=== PATIENT | female | born 1950 | race Caucasian/White ===

== ENCOUNTER → 2016-08-23 | Outpatient (CLI) | payer MEDICARE, BC ==
--- NOTE | 2016-08-23 09:48 | USB ---
Reason for exam: clinical finding. History: Patient is postmenopausal. Family history of breast cancer in 2 sisters and breast cancer in grandmother at age 65. US discontinued breast bx RT of the right breast, October 06, 2015. Taking estrogen for 5 years 9 months beginning at age 51. Physical Findings: Nurse did not find any significant physical abnormalities on exam. US Breast RT Right breast ultrasound includes all four quadrants, the retroareolar region and axilla. Finding demonstrates a 0.5 x 0.5 x 0.4cm oval, cystic lesion at 10 o' clock versus 4 x 6 x 4mm, benign, and a 0.3 x 0.2 x 0.2cm lesion too small to characterize at 10 o'clock versus 2 x 2 x 2mm previously. Stability suggests a benign etiology. The shadowing area at 11 o'clock is unchanged from 09/27/15. This can be reassessed by ultrasound again in 1 year. We note patient is due for annual exam in 1 months. These results were verbally communicated with the patient and result sheet given to the patient on 08/23/16. ASSESSMENT: Probably benign, BI-RAD 3 RECOMMENDATION: 1. Follow-up diagnostic mammogram of both breasts in 1 month for annual exam. 2. Follow up right ultrasound in 1 year for 11 o'clock, suspected dense breast tissue. [facility]
== END | disposition home or self-care (01) ==
LOC: RADUSWWP 08:35
PROVIDERS: ATTEND Internal Medicine
DX: R92.8 Other abnormal and inconclusive findings on diagnostic imaging of breast (principal)

== ENCOUNTER → 2016-09-23 | Outpatient (CLI) | payer MEDICARE, BC ==
--- NOTE | 2016-09-24 07:36 | MM ---
Reason for exam: additional evaluation requested from prior study. Last mammogram was performed 1 year ago. History: Patient is postmenopausal. Family history of breast cancer in 2 sisters and breast cancer in grandmother at age 65. US discontinued breast bx RT of the right breast, October 06, 2015. Taking estrogen for 5 years 9 months beginning at age 51. Physical Findings: Nurse did not find any significant physical abnormalities on exam. MG 3D Diag Mammo W/Cad HOMERO Bilateral CC and MLO view(s) were taken. Prior study comparison: September 22, 2015, bilateral MG 3d screening mammo w/cad. September 16, 2014, bilateral MG screening mammo w CAD. There is chronic nodularity in the right breast. No significant new findings when compared with previous films. These results were verbally communicated with the patient and result sheet given to the patient on 09/23/16. ASSESSMENT: Benign, BI-RAD 2 RECOMMENDATION: Routine screening mammogram of both breasts in 1 year.
== END ==
LOC: RADMAMWWP 13:44
PROVIDERS: ATTEND Internal Medicine
DX: R92.8 Other abnormal and inconclusive findings on diagnostic imaging of breast (principal)
CPT/HCPCS: G0204; G0279

== ENCOUNTER → 2017-01-09 | Outpatient (CLI) | payer MEDICARE, BC ==
[2017-01-09 14:29] LABS: Appearance,Urine Clear (Clear); Bacteria,Urine Few /hpf; Bilirubin,Urine Negative (Negative); Glucose,Urine (UA) Negative (Negative); Ketones,Urine Negative (Negative); Leukocyte Esterase,Urine Negative (Negative); Nitrite,Urine Negative (Negative); Particle Count 1455; Protein,Urine Negative (Negative); RBC,Urine <1 /hpf (0-5); Specific Gravity,Urine 1.006 (1.001-1.035); Squamous Epithelial Cell,Urine 1 /hpf (0-4); UA Billing (MACRO vs. MICRO) MICRO; Urobilinogen,Urine <2.0 mg/dL (<2.0); WBC,Urine 1 /hpf (0-5)
== END | disposition home or self-care (01) ==
LOC: LABWHC1 13:25
PROVIDERS: ATTEND Internal Medicine
DX: N39.0 Urinary tract infection, site not specified (principal)
CPT/HCPCS: 81001; 87086

== ENCOUNTER → 2017-02-19 | Outpatient (CLI) | payer MEDICARE, BC ==
--- NOTE | 2017-02-19 14:19 | EST ---
EXERCISE STRESS DATE OF SERVICE: 02/19/2017 AGE: 66 SEX: F HT: 5'6" WT: 125 STAGE: 3 DURATION OF EXERCISE: 7:27 HEART RATE REST: 55 BLOOD PRESSURE REST: 106/79 MAXIMUM HEART RATE ACHIEVED: 134 MAXIMUM BLOOD PRESSURE: 147/68 85% MPHR: 130 100% MPHR: 153 METS: 8.9 INDICATIONS: Chest pain. CLINICAL INFORMATION: STRESS DATA: Pretesting physical examination showed a heart rate of 55. Pressure is 106/79 mmHg. Baseline EKG showed sinus mechanism. The patient exercised on the treadmill according to Franky protocol for a total of 7 minutes 27 seconds and achieved 8.9 METS. Max heart rate was 134, which is about 88% of maximum predicted heart rate. Maximum blood pressure was 147/68 mmHg. Clinically, the patient did not have any symptoms of chest pain or discomfort and the EKG did not any significant ST or T-wave abnormalities consistent with ischemia. CONCLUSION: 1. Good exercise capacity. 2. Normal EKG response to exercise. 3. Essentially normal exercise treadmill stress test for this patient. MMODL / IJN: [id number] /
== END ==
LOC: RADNMMAIN 11:09
PROVIDERS: ATTEND Internal Medicine
DX: R07.9 Chest pain, unspecified (principal)
CPT/HCPCS: 93017

== ENCOUNTER → 2017-11-20 | Outpatient (CLI) | payer MEDICARE, BC ==
--- NOTE | 2017-11-21 11:15 | MM ---
Reason for exam: screening (asymptomatic). Last mammogram was performed 1 year and 2 months ago. History: Patient is postmenopausal. Family history of breast cancer in 2 sisters and breast cancer in grandmother at age 65. US discontinued breast bx RT of the right breast, October 06, 2015. Taking estrogen for 5 years 9 months beginning at age 51. Physical Findings: A clinical breast exam by your physician is recommended on an annual basis and results should be correlated with mammographic findings. MG 3D Screening Mammo W/Cad Bilateral CC and MLO view(s) were taken. Prior study comparison: September 23, 2016, bilateral MG 3d diag mammo w/cad HOMERO. September 22, 2015, bilateral MG 3d screening mammo w/cad. The breast tissue is heterogeneously dense. This may lower the sensitivity of mammography. Benign appearing round bilateral calcifications. There is no discrete abnormality. ASSESSMENT: Benign, BI-RAD 2 RECOMMENDATION: Routine screening mammogram of both breasts in 1 year.
== END | disposition home or self-care (01) ==
LOC: RADMAMWWP 11:08
PROVIDERS: ATTEND Internal Medicine
DX: Z12.31 Encounter for screening mammogram for malignant neoplasm of breast (principal)
CPT/HCPCS: 77063; 77067

== ENCOUNTER → 2018-08-19 | Outpatient (CLI) | payer MEDICARE, BC ==
[~2018-08-19] MED LIST: ACETAMINOPHEN TAB 325 MG TAB PO ONE; INFLIXIMAB-DYYB 300 MG in SODIUM CHLORIDE 0.9% 250 ML IV NR; SODIUM CHLORIDE 0.9% 500 ML 500 ML in EMPTY BAG 1 BAG IV PRN; diphenhydrAMINE 50 MG/ML 1 ML VIAL IVP ONE
[2018-08-19 08:50] VITALS: RESP 16; TEMP 97.8
[2018-08-19 10:52] VITALS: BP 102/69; PULSE 64
== END ==
LOC: PROCWHC3 08:28
PROVIDERS: ATTEND Internal Medicine Rheumatology
DX: M06.9 Rheumatoid arthritis, unspecified (principal); M05.49 Rheumatoid myopathy with rheumatoid arthritis of multiple sites
CPT/HCPCS: 96375; 96413; 96415; J1200; Q5103

== ENCOUNTER → 2018-08-24 | Outpatient (CLI) | payer MEDICARE, BC ==
--- NOTE | 2018-08-24 11:20 | FL ---
EXAMINATION TYPE: FL UGI air w esophagus DATE OF EXAM: 08/24/2018 CLINICAL HISTORY: Chest pain and burning midsternal chest TECHNIQUE: A double air contrast UGI study is performed. COMPARISON: None FINDINGS: Fluoroscopy time: 2 minutes 4 seconds. Images: 60. The upper gastrointestinal tract is evaluated utilizing double air contrast technique. The esophagus dilates to normal caliber has normal contour to the distal esophagus. The distal esophagus has modera te to marked hesitancy passing through the gastroesophageal junction. There appears to be some persis tent narrowing of the distal esophagus. Multiple tertiary contractions were evident during the exam. However, there is complete stripping of the esophageal bolus in the horizontal drinking position. A s mall amount of reflux was evident during the examination in the distal third of the esophagus Fundus body and antrum of the stomach appear unremarkable without intraluminal or extramural defects. Barium readily empties into the normally positioned duodenal cap and sweep. Duodenal folds are yumi l. Proximal jejunum is unremarkable. IMPRESSION: 1. Mild gastroesophageal reflux in the distal esophagus. 2. Appears to be spasm at the gastroesophageal junction which had moderate to marked hesitancy of con trast passing through. However, some images appear to demonstrate a normal caliber. Consider EGD for additional evaluation. 3. Presbyesophagus. 4. Normal stomach and duodenum.
== END | disposition home or self-care (01) ==
LOC: RADFLWHC 10:02
PROVIDERS: ATTEND Internal Medicine
DX: K21.9 Gastro-esophageal reflux disease without esophagitis (principal); K22.8 Other specified diseases of esophagus
CPT/HCPCS: 74246

== ENCOUNTER → 2018-09-23 | Outpatient (CLI) | payer MEDICARE, BC ==
[~2018-09-23] MED LIST changes: +diphenhydrAMINE 25 MG CAP PO ONE; -diphenhydrAMINE 50 MG/ML 1 ML VIAL IVP ONE
[2018-09-23 08:44] VITALS: RESP 16
[2018-09-23 08:47] VITALS: TEMP 97.5
[2018-09-23 11:37] VITALS: BP 113/56; PULSE 53
== END | disposition home or self-care (01) ==
LOC: PROCWHC3 08:22
PROVIDERS: ATTEND Internal Medicine Rheumatology
DX: M05.49 Rheumatoid myopathy with rheumatoid arthritis of multiple sites (principal)
CPT/HCPCS: 96413; 96415; Q5103

== ENCOUNTER → 2018-12-01 | Outpatient (CLI) | payer MEDICARE, BC ==
--- NOTE | 2018-12-03 11:58 | MM ---
Reason for exam: screening (asymptomatic). Last mammogram was performed 1 year ago. History: Patient is postmenopausal. Family history of breast cancer in 2 sisters and breast cancer in grandmother at age 65. US discontinued breast bx RT of the right breast, October 06, 2015. Taking estrogen for 5 years 9 months beginning at age 51. Physical Findings: A clinical breast exam by your physician is recommended on an annual basis and results should be correlated with mammographic findings. MG 3D Screening Mammo W/Cad Bilateral CC and MLO view(s) were taken. Prior study comparison: November 20, 2017, bilateral MG 3d screening mammo w/cad. September 23, 2016, bilateral MG 3d diag mammo w/cad HOMERO. The breast tissue is heterogeneously dense. This may lower the sensitivity of mammography. There is chronic nodularity in the right breast. No significant changes when compared with prior studies. ASSESSMENT: Benign, BI-RAD 2 RECOMMENDATION: Routine screening mammogram of both breasts in 1 year.
== END | disposition home or self-care (01) ==
LOC: RADMAMWWP 09:54
PROVIDERS: ATTEND Internal Medicine
DX: Z12.31 Encounter for screening mammogram for malignant neoplasm of breast (principal)
CPT/HCPCS: 77063; 77067

== ENCOUNTER → 2018-12-16 | Outpatient (CLI) | payer MEDICARE, BC ==
[2018-12-16 12:34] LABS: Albumin 4.3 g/dL (3.5-5.0); Calcium 9.7 mg/dL (8.4-10.2); Total Bilirubin 0.3 mg/dL (0.2-1.3); Total Protein 7.6 g/dL (6.3-8.2)
[2018-12-16 12:44] LABS: Appearance,Urine Clear (Clear); Bilirubin,Urine Negative (Negative); Blood,Urine Negative (Negative); Color,Urine Yellow; Glucose,Urine (UA) Negative (Negative); Ketones,Urine Negative (Negative); Leukocyte Esterase,Urine Negative (Negative); Nitrite,Urine Negative (Negative); PH, Urine 5.5 (5.0-8.0); Protein,Urine Trace (Negative); Specific Gravity,Urine 1.019 (1.001-1.035); Urobilinogen,Urine <2.0 mg/dL (<2.0)
--- NOTE | 2018-12-16 14:35 | CT ---
EXAMINATION TYPE: CT abdomen pelvis wo/w con DATE OF EXAM: 12/16/2018 COMPARISON: None HISTORY: Abdominal pain CT DLP: 713.20 mGycm Automated exposure control for dose reduction was used. TECHNIQUE: Helical acquisition of images was performed from the lung bases through the pelvis. CONTRAST: Performed with Oral Contrast and without and with IV Contrast, patient injected with 100 ml mL of Iso sneha 300. FINDINGS: LUNG BASES: Pleural thickening and linear scarring is seen along the posterior and lateral right lowe r lobe with additional areas of scarring seen in the medial right middle lobe and lingula. LIVER/GB: No significant abnormality is appreciated. PANCREAS: No significant abnormality is seen. SPLEEN: No significant abnormality is seen. ADRENALS: No significant abnormality is seen. KIDNEYS: No significant abnormality is seen. FREE AIR: No free air is visualized. RETROPERITONEAL ADENOPATHY: None visualized REPRODUCTIVE ORGANS: No significant abnormality is seen URINARY BLADDER: No significant abnormality is seen. PELVIC ADENOPATHY: None visualized. OSSEOUS STRUCTURES: No significant abnormality is seen. BOWEL: No significant abnormality is seen. OTHER: Radiopaque surgical clips seen in the right lower quadrant of the abdomen likely related to ap pendectomy. IMPRESSION: NO ACUTE PROCESS WITHIN THE ABDOMEN OR PELVIS. NONSPECIFIC PLEURAL THICKENING AND SCARRING IN THE RIGHT LOWER LOBE OF UNCERTAIN ETIOLOGY. CORRELATIO N WITH TWO-VIEW CHEST X-RAY IS RECOMMENDED.
== END | disposition home or self-care (01) ==
LOC: RADCTMAIN 11:16
PROVIDERS: ATTEND Internal Medicine Rheumatology
DX: R10.9 Unspecified abdominal pain (principal); R53.83 Other fatigue
CPT/HCPCS: 80053; 84436; 84443; 81003; 74178; 36415; Q9967

== ENCOUNTER 2019-03-27 12:14 | Emergency (ER) | payer MEDICARE, BC ==
[2019-03-27 12:18] VITALS: TEMP 98
[2019-03-27] MEDS ORDERED: LIDOCAINE/EPINEPHR/TETRACAINE 5 ML BOTTLE TOPICAL ONE (13:07)
--- NOTE | 2019-03-27 13:08 | CT ---
EXAMINATION TYPE: CT brain anselmo armendariz DATE OF EXAM: 03/27/2019 COMPARISON: None HISTORY: Fall TECHNIQUE: 1. Axial CT images of the head without contrast. Bone windows and sagittal and coronal reformats were reviewed. 2. Axial CT images of the cervical spine without contrast. Bone windows and sagittal and coronal refo rmats were reviewed. 3. CT DLP: 1245 mGycm Automated exposure control for dose reduction was used. FINDINGS: CT Head: No acute intracranial hemorrhage. Cordero-white differentiation is preserved. The ventricular system is normal in size and morphology. No abnormal extra-axial fluid collections or midline shift of structures. Patent basal cisterns. No depressed or displaced calvarial fracture. Left frontotemporal scalp laceration. Visualized parana karolina sinuses and temporal bone structures are well aerated. The orbits and skull base are unremarkable . CT Cervical Spine: The cervical spine is imaged through T3. Reversal of the usual cervical lordosis. Vertebral bodies an d facet joints are anatomically aligned. No fracture. Vertebral body heights are maintained. Mild-moderate degenerative changes throughout the cervical spine, greatest degree at C5-toothpicks ch aracterized by vertebral body osteophyte formation, disc height loss, and facet and uncovertebral spu rring. No prevertebral edema or soft tissue abnormality. 4 mm right apical nodule. IMPRESSION: 1. No acute intracranial abnormality.. Left frontotemporal scalp laceration. 2. No acute traumatic injury of the cervical spine. 3. Right upper lobe lung nodule measuring 4 mm, dedicated chest CT is recommended on a nonemergent sis.
[2019-03-27] MEDS ORDERED: DIPH,PERTUS(ACELL)TETVAC-LF 0.5 ML VIAL IM ONE (14:00)
--- NOTE | 2019-03-27 14:00 | ED ---
Head Injury HPI - General Chief complaint: Head Injury Stated complaint: Fall-Head Injury Source: patient Mode of arrival: ambulatory Limitations: no limitations - History of Present Illness Initial comments: 68-year-old female presenting for left-sided head laceration. Patient states that she was intoxicated yesterday after going to the ball with her . She states she came into the home attempt to use restroom she states she has not rub or following the witnessed her lose her balance and fall between the bathtub and the toilet he states she did not lose consciousness. They controlled the bleeding and went to bed. In the morning they had the laceration evaluated by a family friend who is a nurse who recommended suture repair she denies any headache dizziness nausea vomiting neck pain. She states she does not recall much of the night before secondary to drinking. Patient denies noting any chest pain short of breath like swelling or any abnormal signs or symptoms prior to the beginning of the evening. Patient denies any other complaints she states she only came for the repair of this laceration. Tetanus is not up-to-date. Remaining review of systems negative patient denies any areas of pain or injury - Related Data Home Medications Medication Instructions Recorded Confirmed ALPRAZolam [Xanax] 0.25 mg PO DAILY PRN 09/14/13 01/11/19 Zolpidem [Ambien] 10 mg PO DAILY PRN 09/14/13 01/11/19 Ibuprofen [Advil] 200 mg PO Q6HR PRN 01/09/16 01/11/19 HYDROcodone/APAP 10-325MG [[place] 1 tab PO Q4HR PRN 11/16/18 01/11/19 10-325] Previous Rx's Medication Instructions Recorded Cephalexin [Keflex] 500 mg PO Q8HR 5 Days #15 cap 03/27/19 Allergies/Adverse reactions: Allergies Allergy/AdvReac Type Severity Reaction Status Date / Time codeine Allergy Unknown Verified 03/27/19 12:17 propoxyphene napsylate Allergy Unknown Verified 03/27/19 12:17 [From Myriam-N 100] Review of Systems ROS Statement: Those systems with pertinent positive or pertinent negative responses have been documented in the HPI. ROS Other: All systems not noted in ROS Statement are negative. Past Medical History Past Medical History: Rheumatoid Arthritis (RA), Skin Disorder Additional Past Medical History / Comment(s): ARTHRITIC LUNG RT SIDE. History of Any Multi-Drug Resistant Organisms: None Reported Past Surgical History: Appendectomy, Heart Catheterization, Hernia Repair, Hysterectomy, Tonsillectomy Additional Past Surgical History / Comment(s): RT HAND JOINT REPLACED/THORACENTESIS 2008/RT FOOT SURG/BUNIONECTOMY Past Anesthesia/Blood Transfusion Reactions: No Reported Reaction Past Psychological History: Anxiety Smoking Status: Former smoker Past Alcohol Use History: Occasional Past Drug Use History: None Reported General Exam - General Exam Comments Initial Comments: General: The patient is awake and alert, in no distress, and does not appear acutely ill. Eye: +3 mm pupils are equal, round and reactive to light, extra-ocular movements are intact. No nystagmus. There is normal conjunctiva bilaterally. No signs of icterus. Ears, nose, mouth and throat: There are moist mucous membranes and no oral lesions. No raccoon or Tripp sign. Small hematoma over the left temporal region with a 3 cm laceration. No exposure of osseous structures. No evidence of foreign body. Wound edges appear vitalized Neck: The neck is supple, there is no tenderness or JVD. No midline tenderness to palpation of the cervical spine with full range of motion. Cardiovascular: There is a regular rate and rhythm. No murmur, rub or gallop is appreciated. Respiratory: Lungs are clear to auscultation, respirations are non-labored, breath sounds are equal. No wheezes, stridor, rales, or rhonchi. Gastrointestinal: Soft, non-distended, non-tender abdomen without masses or organomegaly noted. There is no rebound or guarding present. Musculoskeletal: Normal ROM, no tenderness. Strength 5/5. Sensation intact. Pulses equal bilaterally 2+. Neurological: A&O x 3. CN II-XII intact, There are no obvious motor or sensory deficits. Coordination appears grossly intact. Speech is normal. Skin: Skin is warm and dry and no rashes or lesions are noted. Psychiatric: Cooperative, appropriate mood & affect, normal judgment. Limitations: no limitations Course Vital Signs 03/27/19 03/27/19 03/27/19 12:15 12:47 14:01 Temperature 98.0 F Pulse Rate 70 62 67 Respiratory 18 18 16 Rate Blood Pressure 118/74 111/71 113/65 O2 Sat by Pulse 98 98 96 Oximetry 03/27/19 14:13 Temperature 98.0 F Pulse Rate 67 Respiratory 16 Rate Blood Pressure 113/65 O2 Sat by Pulse 96 Oximetry Medical Decision Making - Medical Decision Making 68-year-old female presented for laceration repair. Left temporal laceration with small, trauma. Wound edges appear vitalized. Wound was incurred at 10 PM the night prior less than 24 hours. After irrigation wound edges approximated well. CT of the brain C-spine negative for acute process. Patient fall which was witnessed was said to be mechanical. Secondary to intoxication. Patient states she is ready for discharge tetanus updated discussed case attending provider Dr. Vargas is agreeable care plan discharge at this time. Return parameters and suture care discussed patient verbalized understanding Disposition Clinical Impression: Laceration of head, Fall, Head injury Disposition: HOME SELF-CARE Condition: Good Instructions (If sedation given, give patient instructions): Care For Your Stitches (ED), Laceration (ED), Head Injury (ED) Additional Instructions: Please use medication as discussed. Please follow-up with family doctor in the next week and back here in the emergency department for suture removal in 5 days.. Please return to emergency room if the symptoms increase or worsen or for any other concerns. Prescriptions: Cephalexin [Keflex] 500 mg PO Q8HR 5 Days #15 cap Is patient prescribed a controlled substance at d/c from ED?: No Referrals: Vicente Chua MD [Primary Care Provider] - 1-2 days Time of Disposition: 14:00
[2019-03-27 14:02] VITALS: BP 113/65; PULSE 67; RESP 16
== END 2019-03-27 14:13 | disposition home or self-care (01) ==
LOC: EC 12:14
DX: S01.81XA Laceration without foreign body of other part of head, initial encounter (principal); M06.9 Rheumatoid arthritis, unspecified; Z87.891 Personal history of nicotine dependence; Z88.5 Allergy status to narcotic agent; Z79.1 Long term (current) use of non-steroidal anti-inflammatories (NSAID); Z96.691 Finger-joint replacement of right hand; Z23 Encounter for immunization; W01.0XXA Fall on same level from slipping, tripping and stumbling without subsequent striking against object, initial encounter; Y93.89 Activity, other specified; Y92.002 Bathroom of unspecified non-institutional (private) residence as the place of occurrence of the external cause
CPT/HCPCS: 12013; 70450; 72125; 90471; 90715; 99283

== ENCOUNTER → 2019-09-28 | Outpatient (CLI) | payer MEDICARE, BC ==
--- NOTE | 2019-09-28 14:30 | NM ---
EXAMINATION TYPE: NM bone scan whole body DATE OF EXAM: 09/28/2019 COMPARISON: CT 03/27/2019 HISTORY: Joint pain, abnormal brain scan Delayed whole-body scanning was performed following the injection of 20.5 mCi Tc 99m MDP. Images acq uired 3.5 hours post injection. FINDINGS: There is uptake within the metatarsophalangeal joint of the right first digit, mild uptake on the lef t at the same level. Uptake within the hands, wrists, elbows and shoulders, right sternoclavicular soo int likely due to underlying arthropathy. Soft tissue uptake is within normal limits. Mild uptake abo ut the knees, there may be is postop change. Mild asymmetric uptake along the anterior left third fou rth ribs may be due to rotation, correlate for history of trauma. IMPRESSION: Correlate for underlying arthropathy. Additional findings above.
== END | disposition home or self-care (01) ==
LOC: RADNMMAIN 09:36
PROVIDERS: ATTEND Internal Medicine
DX: R94.02 Abnormal brain scan (principal); Z88.1 Allergy status to other antibiotic agents
CPT/HCPCS: 78306; A9503

== ENCOUNTER → 2020-01-13 | Outpatient (CLI) | payer MEDICARE, BC | END | disposition home or self-care (01) | LOC: LABWHC1 11:52 | PROVIDERS: ATTEND Family Medicine | DX: R05 Cough (principal); R06.02 Shortness of breath | CPT/HCPCS: U0003; C9803 ==

== ENCOUNTER → 2020-01-17 | Outpatient (CLI) | payer MEDICARE, BC ==
--- NOTE | 2020-01-18 12:43 | MM ---
Reason for exam: additional evaluation requested from prior study. Last mammogram was performed 1 year and 1 month ago. History: Patient is postmenopausal. Family history of breast cancer in 2 sisters and breast cancer in grandmother at age 65. US discontinued breast bx RT of the right breast, October 06, 2015. Taking estrogen for 5 years 9 months beginning at age 51. Physical Findings: Nurse did not find any significant physical abnormalities on exam. MG 3D Diag Mammo W/Cad HOMERO Bilateral CC and MLO view(s) were taken. Prior study comparison: December 01, 2018, bilateral MG 3d screening mammo w/cad. November 20, 2017, bilateral MG 3d screening mammo w/cad. The breast tissue is heterogeneously dense. This may lower the sensitivity of mammography. There is no discrete abnormality. These results were verbally communicated with the patient and result sheet given to the patient on 01/17/20. ASSESSMENT: Negative, BI-RAD 1 RECOMMENDATION: Routine screening mammogram of both breasts in 1 year. Manage on a clinical basis with regard to pain.
== END | disposition home or self-care (01) ==
LOC: RADMAMWWP 13:21
PROVIDERS: ATTEND Family Medicine
DX: N64.4 Mastodynia (principal)
CPT/HCPCS: 77066; G0279; 77062

== ENCOUNTER → 2020-05-10 | Outpatient (CLI) | payer MEDICARE, BC | END | disposition home or self-care (01) | LOC: LABWHC1 13:49 | PROVIDERS: ATTEND Internal Medicine Rheumatology | DX: M06.9 Rheumatoid arthritis, unspecified (principal) | CPT/HCPCS: 36415; 86480 ==

== ENCOUNTER → 2020-06-22 | Outpatient (CLI) | payer MEDICARE, BC ==
--- NOTE | 2020-06-22 14:07 | US ---
EXAMINATION TYPE: US venous doppler duplex LE DATE OF EXAM: 06/22/2020 1:45 PM COMPARISON: NONE CLINICAL HISTORY: 69-year-old female M79.662 R22.42 Pain. Swelling Left Lower Limb. Left leg swellin g per patient. No redness. No hx blood clots. No injury. No blood thinners. Patient states she g ets a weekly shot in the thigh for arthritis SIDE PERFORMED: Left TECHNIQUE: The lower extremity deep venous system is examined utilizing real time linear array sonog wilfrid with graded compression, doppler sonography and color-flow sonography. FINDINGS: VESSELS IMAGED: Common Femoral Vein Deep Femoral Vein Greater Saphenous Vein * Femoral Vein Popliteal Vein Small Saphenous Vein * Proximal Calf Veins (* superficial vessels) Left Leg: Negative for DVT. Mildly complex superficial fluid collection visualized in upper medial l eft calf extending into mid calf measuring up to 3.5 x 1.1 cm in cross-section and spanning nearly 12 .1 cm. Some leakage is suggested along the inferior aspect of the collection. IMPRESSION: 1. No evidence for DVT within the left lower extremity imaged from the groin to the upper calf. 2. An elongated, mildly complex, and leaking Corado's cyst spanning 12.1 cm down into the mid calf.
== END | disposition home or self-care (01) ==
LOC: RADUSWWP 13:23
PROVIDERS: ATTEND Nurse Practitioner Adult Health
DX: M71.22 Synovial cyst of popliteal space [Baker], left knee (principal); Z88.1 Allergy status to other antibiotic agents; Z91.012 Allergy to eggs

== ENCOUNTER → 2020-08-02 | Outpatient (CLI) | payer MEDICARE, BC ==
--- NOTE | 2020-08-02 13:51 | MR ---
EXAMINATION TYPE: MR knee LT wo con DATE OF EXAM: 08/02/2020 COMPARISON: None HISTORY: Left knee pain and swelling x 6weeks TECHNIQUE: Multiplanar, multisequence imaging of the left knee is performed without IV contrast. FINDINGS: MEDIAL MENISCUS: Posterior horn of the medial meniscus shows irregularity which may be due to some pe ripheral fraying LATERAL MENISCUS: Anterior and posterior horns are intact without tear. CRUCIATE LIGAMENTS: The anterior and posterior cruciate ligaments are intact and unremarkable. COLLATERAL LIGAMENTS: The medial collateral ligament and lateral collateral ligament complex are inta ct and unremarkable. EXTENSOR MECHANISM: Visualized quadriceps and patellar tendons are intact. EFFUSION: There is a moderate to large joint effusion POPLITEAL CYST: Large semimembranosus gastrocnemius cyst is present with septations, mixed internal signal possibly due to some hemorrhage, the cyst extends into the leg beyond the scope of the exam, t here is fluid signal within the soft tissues suggesting rupture TRICOMPARTMENT SPACES: There is marginal spurring patella CARTILAGE: Grade 3 to grade IV chondromalacia especially at the posterior patella BONE MARROW SIGNAL: No focal abnormal marrow signal is appreciated. OTHER: There is subcutaneous edema changes, thickened synovium is present IMPRESSION: Ruptured Corado's cyst as described. 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
== END | disposition home or self-care (01) ==
LOC: RADMRIMAIN 10:34
PROVIDERS: ATTEND Nurse Practitioner Adult Health
DX: M17.12 Unilateral primary osteoarthritis, left knee (principal); M71.22 Synovial cyst of popliteal space [Baker], left knee

== ENCOUNTER → 2021-02-05 | Outpatient (CLI) | payer MEDICARE, BC ==
[2021-02-05 10:23] LABS: Basophils # (A) 0.1 k/uL (0-0.2); Basophils % (A) 1 %; Eosinophils # (A) 0.4 k/uL (0-0.7); Eosinophils % (A) 5 %; HCT 47.8 % (34.0-46.0); HGB 15.4 gm/dL (11.4-16.0); Lymphocytes # (A) 2.6 k/uL (1.0-4.8); Lymphocytes % (A) 34 %; MCH 32.4 pg (25.0-35.0); MCHC 32.3 g/dL (31.0-37.0); MCV 100.3 fL (80.0-100.0); Mean Platelet Volume 7.8; Monocytes # (A) 0.5 k/uL (0-1.0); Monocytes % (A) 6 %; Neutrophils # (A) 4.2 k/uL (1.3-7.7); Neutrophils % (A) 54 %; Platelet Count 286 k/uL (150-450); RBC 4.76 m/uL (3.80-5.40); RDW 12.9 % (11.5-15.5); WBC 7.8 k/uL (3.8-10.6)
[2021-02-05 10:40] LABS: Calcium 9.3 mg/dL (8.4-10.2); Potassium 3.9 mmol/L (3.5-5.1); Total Bilirubin 0.4 mg/dL (0.2-1.3); Total Protein 7.2 g/dL (6.3-8.2)
--- NOTE | 2021-02-05 12:19 | CT ---
EXAMINATION TYPE: CT abdomen pelvis w con DATE OF EXAM: 02/05/2021 HISTORY: Lower Abdominal pain with nausea. CT DLP: 505.1mGycm Automated Exposure Control for Dose Reduction was Utilized. CONTRAST: CT scan of the abdomen and pelvis is performed with oral and with IV Contrast, patient injected with 100 mL of Isovue 300. COMPARISON: CT abdomen and pelvis December 16, 2018 FINDINGS: LUNG BASES: Moderate peripheral focal right basilar pleural thickening and linear scarring redemonstr ated. LIVER/GB: Small amount of adjacent ascites on current study. PANCREAS: No significant abnormality is seen. SPLEEN: No significant abnormality is seen. ADRENALS: No significant abnormality is seen. KIDNEYS: No significant abnormality is seen. BOWEL: The oral contrast reaches level of the mid transverse colon. There is no suspicious small or l arge bowel dilatation. Few diverticula near junction of left and sigmoid colon. No CT evidence for ac yuhaaviatam diverticulitis UTERUS/ADNEXA: Uterus not distinctly visualized suspected surgically absent similar to prior. There i s however new complex pelvic mass with greater leftward component that has low dense cystic and lobul ated enhancing solid component. This is measuring roughly 11.8 cm AP diameter axial image 66 x 9.8 c m transversely by 7.6 cm in overall dimension sagittal image 59. There is local mass effect on the bl adder along the left superior aspect. There is local mass effect on the sigmoid colon which is deviat ed anteriorly into the right. No abnormal adenopathy clearly seen. No definitive suspicious peritonea l nodularity identified. LYMPH NODES: No greater than 1cm abdominal or pelvic lymph nodes are appreciated. OSSEOUS STRUCTURES: No significant abnormality is seen. OTHER: No significant additional abnormality is seen. IMPRESSION: New fairly large 11.8 cm solid and cystic left pelvic mass strongly suspicious for ovaria n carcinoma. Local mass effect is present. Advise gynecology oncology referral to further evaluate an d/or treat.
== END | disposition home or self-care (01) ==
LOC: RADCTMAIN 09:45
PROVIDERS: ATTEND Internal Medicine
DX: R19.00 Intra-abdominal and pelvic swelling, mass and lump, unspecified site (principal)
CPT/HCPCS: 80053; 82150; 83690; 85025; 82306; 87086; 74177; 36415; Q9967

== ENCOUNTER → 2021-02-16 | Outpatient (CLI) | payer MEDICARE, BC ==
--- NOTE | 2021-02-16 09:08 | XR ---
EXAMINATION TYPE: XR chest 2V DATE OF EXAM: 02/16/2021 COMPARISON: NONE HISTORY: Surgical study. TECHNIQUE: Frontal and lateral views of the chest are obtained. FINDINGS: There is small size right pleural effusion on frontal view less well-seen on lateral view with associated right basilar atelectasis and/or infiltrate. Left lung is clear. The cardiac silhoue tte size is within normal limits. Spine is straightened on lateral view. IMPRESSION: Small right pleural effusion with associated right basilar acute atelectasis and/or infi ltrate.
[2021-02-16 09:29] LABS: Appearance,Urine Cloudy (Clear); Bacteria,Urine Occasional /hpf; Bilirubin,Urine Negative (Negative); Blood,Urine Negative (Negative); Color,Urine Yellow; Glucose,Urine (UA) Negative (Negative); Hyaline Casts,Urine 12 /lpf (0-2); Ketones,Urine Negative (Negative); Leukocyte Esterase,Urine Trace (Negative); Mucus,Urine Occasional /hpf; Nitrite,Urine Negative (Negative); Protein,Urine Negative (Negative); RBC,Urine 1 /hpf (0-5); Specific Gravity,Urine 1.016 (1.001-1.035); Squamous Epithelial Cell,Urine 6 /hpf (0-4); WBC,Urine 4 /hpf (0-5)
[2021-02-16 11:04] LABS: HCT 41.5 % (37.2-46.3); HGB 13.4 g/dL (12.0-15.0); MCH 30.7 pg (27.0-32.0); MCHC 32.3 g/dL (32.0-37.0); MCV 95.2 fL (80.0-97.0); Mean Platelet Volume 10.9 fL (9.5-12.2); Platelet Count 297 X 10*3/uL (140-440); RBC 4.36 X 10*6/uL (4.10-5.20); RDW 13.7 % (11.5-14.5); WBC 7.66 X 10*3/uL (4.50-10.00)
[2021-02-16 21:15] LABS: African American GFR (CKD) 74.6 (60.0-200.0); Albumin 3.6 g/dL (3.8-4.9); Albumin/Globulin Ratio 1.33 (1.60-3.17); Anion Gap 15.7 mmol/L (4.00-12.00); BUN/Creat Ratio 15.67 Ratio (12.00-20.00); Blood Urea Nitrogen 14.1 mg/dL (9.0-27.0); Calcium 8.8 mg/dL (8.7-10.3); Carbon Dioxide 19.3 mmol/L (21.6-31.8); Globulin 2.7 g/dL (1.6-3.3); Non-African American GFR(CKD) 64.3 (60.0-200.0); Potassium 4.4 mmol/L (3.5-5.5); Total Bilirubin 0.3 mg/dL (0.30-1.20); Total Protein 6.3 g/dL (6.2-8.2)
== END | disposition home or self-care (01) ==
LOC: LABWHC1 08:15
PROVIDERS: ATTEND Obstetrics & Gynecology Gynecologic Oncology
DX: R19.00 Intra-abdominal and pelvic swelling, mass and lump, unspecified site (principal)
CPT/HCPCS: 36415; 71046; 80053; 81001; 82378; 85027; 86304; 86850; 86900; 86901; 87086; 93005

== ENCOUNTER → 2021-09-07 | Outpatient (CLI) | payer MEDICARE, BC ==
--- NOTE | 2021-09-07 13:35 | CT ---
EXAMINATION TYPE: CT ChestAbdPelvis w con DATE OF EXAM: 09/07/2021 INDICATION: Ovarian CA COMPARISON: 02/05/2021 CT DLP: 506.6 mGycm CONTRAST: Performed with Oral Contrast and with IV Contrast, patient injected with 100 mL of Isovue 300. TECHNIQUE: Axial images at 5 mm thick sections. Reconstructed images in the coronal plane. Delayed images through the kidneys. FINDINGS: CT CHEST: Portion of the thyroid visualized is normal. There is infiltrate through the posterior lateral right lung base. Correlate for atelectasis or pneum onia. There is a small nodule in the posterior medial right lung base measuring 0.6 cm. Series 4 image 50. There is a nodule along the major fissure on the left measuring 0.8 cm. Series 4 image 32. There is a 0.6 cm nodule of the right apex, series 4 image 13. No enlarged mediastinal or hilar adenopathy is evident. The ascending aorta diameter at the level of the main pulmonary artery is 3.3 cm. The main pulmonary artery diameter at the bifurcation is 2.[address] ABDOMEN: Liver: Normal Spleen: Normal Pancreas: Normal Adrenal glands: The adrenal glands are normal. Gallbladder: Normal Kidneys: No masses are evident. No hydronephrosis is present. No cysts are present. Delayed images were obtained through the kidneys, which remain unremarkable. Aorta: Vascular calcification is within the aorta. Inferior vena cava: Normal. CT PELVIS: Loops of bowel within the abdomen and pelvis are normal. There are loops of bowel which are incom pletely distended or lack oral contrast limiting their evaluation. Appendix: Not visualized. No suspicious inflammatory changes or dilated tubular structures are eviden t. Urinary bladder: Normal. Genitourinary structures: Uterus and ovaries are not identified. Osseous structures: No suspicious lytic or sclerotic lesions. IMPRESSIONS: 1. Diverticulosis without acute diverticulitis. 2. Small lung nodules discussed above. PET/CT could be considered. Otherwise follow-up CT chest in 6 months would be recommended. 3. Right posterior lateral lung infiltrate. Atelectasis or pneumonia.
== END | disposition home or self-care (01) ==
LOC: RADCTMAIN 09:19
PROVIDERS: ATTEND Obstetrics & Gynecology Gynecologic Oncology
DX: C56.9 Malignant neoplasm of unspecified ovary (principal); K57.90 Diverticulosis of intestine, part unspecified, without perforation or abscess without bleeding; R91.8 Other nonspecific abnormal finding of lung field
CPT/HCPCS: 71260; 74177

== ENCOUNTER → 2021-10-24 | Outpatient (CLI) | payer MEDICARE, BC ==
--- NOTE | 2021-10-24 10:58 | BD ---
EXAMINATION TYPE: Axial Bone Density DATE OF EXAM: 10/24/2021 COMPARISON: NONE CLINICAL HISTORY: 70 years year old Female. ICD-10 CODE: Z78.0 post menopausal Height: 5 FT 5 1/2 IN Weight: 129 FRAX RISK QUESTIONS: Alcohol (3 or more units per day): NO Family History (Parent hip fracture): NO Glucocorticoids (More than 3mos): NO (Ex: prednisone, prednisolone, methylprednisolone, dexamethasone, and hydrocortisone). History of Fracture in Adulthood: NO Secondary Osteoporosis: 1. Type 1 Diabetes: NO 2. Hyperthyroidism: NO 3. Menopause before 45: NO 4. Malnutrition: NO 5. Chronic liver disease: NO Rheumatoid Arthritis: YES Current Tobacco Use: NO RISK FACTORS HISTORY OF: Surgery to Spine/Hip(right/left)/Wrist (right/left): NO Family History of Osteoporosis: NO Active: YES Diet low in dairy products/other sources of calcium: NO Postmenopausal woman: YES Take estrogen and/or progesterone medications: YEARS AGO STOPPED TAKING FIVE YEARS AGO Lost more than 2 inches in height since high school: S Frequent falls: UNSTEADY Poor Health: GOOS Hyperparathyroidism: NO Adrenal Insufficiency: NO MEDICATIONS: Additional Medications: CYMBALTA, HYDROCODONE, ACETAMINOPHEN, DOXYCYCLINE,ALPRAZOLAM, GABAPENTIN, PRO CHLORPERAZINE Additional History: OVARIAN CANCER JUST FINISHED CHEMO 2021 EXAM MEASUREMENTS: Bone mineral densitometry was performed using the [employer]. Bone mineral density as measured about the Lumbar spine is: ----- L1-L4(G/cm2): 0.945 T Score Values are as follows: ----- L1: -2.9 ----- L2: -2.3 ----- L3: -1.3 ----- L4: -1.6 ----- L1-L4: -2.0 PREV ELSEWHERE Bone mineral density about the R hip (g/cm2): 0.653 Bone mineral density about the L hip (g/cm2): 0.731 T Score values are as follows: -----R Neck: -2.8 -----L Neck: -2.2 -----R Total: -1.8 -----L Total: -1.7 PREV DONE ELSEWHERE FRAX%s: The graph provided illustrates a 20.8 % chance for a major osteoporotic fx and a 7.5 % chance for the hips probability for fx in 10 years time. IMPRESSION: Osteopenia NOTE: T-SCORE=SD OF THE YOUNG ADULT MEAN.
--- NOTE | 2021-10-25 11:00 | MM ---
Reason for Exam: Screening (asymptomatic). Last mammogram was performed 1 year(s) and 9 month(s) ago. Patient History: Menarche at age 16. First Full-Term at age 19. Hysterectomy at age 44. Postmenopausal. Ovarian cancer, age 70. Previous chemotherapy at age 70. Currently using Estrogen, beginning at age 51 for 5 years, 9 months. 10/06/2015, US discontinued breast bx RT on the right side. Maternal grandmother had breast cancer, age 65. Niece had breast cancer, age 35. Sister had breast cancer, age 40. Sister had breast cancer. Risk Values: Tessie 5 year model risk: 6.4%. NCI Lifetime model risk: 16.8%. Prior Study Comparison: 11/20/2017 Bilateral Screening Mammogram, [facility]. 12/01/2018 Bilateral Screening Mammogram, [facility]. 01/17/2020 Bilateral Diagnostic Mammogram, [facility]. Tissue Density: The breast tissue is heterogeneously dense. This may lower the sensitivity of mammography. Findings: Analyzed By CAD. There is no suspicious group of microcalcifications or new suspicious mass in either breast. Overall Assessment: Negative, BI-RAD 1 Management: Screening Mammogram of both breasts in 1 year. A clinical breast exam by your physician is recommended on an annual basis and results should be correlated with mammographic findings. Electronically signed and approved by: Wesley Newman M.D. Radiologis
== END ==
LOC: RADMAMWWP 08:07
PROVIDERS: ATTEND Internal Medicine
DX: Z12.31 Encounter for screening mammogram for malignant neoplasm of breast (principal); M81.0 Age-related osteoporosis without current pathological fracture; M85.89 Other specified disorders of bone density and structure, multiple sites; Z80.3 Family history of malignant neoplasm of breast; Z78.0 Asymptomatic menopausal state
CPT/HCPCS: 77063; 77067; 77080

== ENCOUNTER 2021-11-01 11:28 | Inpatient (IN) | payer MEDICARE, BC ==
--- NOTE | 2021-11-01 14:02 | ED ---
Recheck HPI - General Chief Complaint: Recheck/Abnormal Lab/Rx Stated Complaint: Abd Labs Time Seen by Provider: 11/01/21 13:35 Source: patient Mode of arrival: ambulatory Limitations: no limitations - History of Present Illness Initial Comments: Patient is a 70-year-old female who was sent to the office by her primary care provider today after critical result lab for routine draw resulting in platelet count of 5 which is down from 27. She is following with oncology at [facility] for ovarian cancer. She completed chemotherapy in August of this year. She also has a past medical history significant for severe rheumatoid arthritis but is not currently on any immune suppressant or biologic therapy due to her recent chemotherapy. She does repeat port multiple bruises to her upper and lower extremities and some generalized weakness but denies any other complaints or concerns at this time. - Related Data Home Medications Medication Instructions Recorded Confirmed ALPRAZolam [Xanax] 0.25 mg PO DAILY PRN 09/14/13 01/11/19 Zolpidem [Ambien] 10 mg PO DAILY PRN 09/14/13 01/11/19 Ibuprofen [Advil] 200 mg PO Q6HR PRN 01/09/16 01/11/19 HYDROcodone/APAP 10-325MG [[place] 1 tab PO Q4HR PRN 11/16/18 01/11/19 10-325] Previous Rx's Medication Instructions Recorded Cephalexin [Keflex] 500 mg PO Q8HR 5 Days #15 cap 03/27/19 Allergies Allergy/AdvReac Type Severity Reaction Status Date / Time codeine Allergy Unknown Verified 11/01/21 12:05 propoxyphene napsylate Allergy Unknown Verified 11/01/21 12:05 [From Laurent-N 100] Review of Systems ROS Statement: Those systems with pertinent positive or pertinent negative responses have been documented in the HPI. ROS Other: All systems not noted in ROS Statement are negative. Past Medical History Past Medical History: Rheumatoid Arthritis (RA), Skin Disorder Additional Past Medical History / Comment(s): ARTHRITIC LUNG RT SIDE. ovarian cancer History of Any Multi-Drug Resistant Organisms: None Reported Past Surgical History: Appendectomy, Heart Catheterization, Hernia Repair, Hy sterectomy, Tonsillectomy Additional Past Surgical History / Comment(s): RT HAND JOINT REPLACED/THORACENTESIS 2008/RT FOOT SURG/BUNIONECTOMY Past Anesthesia/Blood Transfusion Reactions: No Reported Reaction Past Psychological History: Anxiety Past Alcohol Use History: Occasional Past Drug Use History: None Reported General Exam Limitations: no limitations General appearance: alert, in no apparent distress Head exam: Present: atraumatic, normocephalic, normal inspection Eye exam: Present: normal appearance, PERRL, EOMI. Absent: scleral icterus, conjunctival injection, periorbital swelling ENT exam: Present: normal exam, mucous membranes moist Neck exam: Present: normal inspection Respiratory exam: Absent: respiratory distress, accessory muscle use Extremities exam: Present: other (Multiple joint deformities due to rheumatoid arthritis noted. Small hematoma to right lower anterior extremity without evidence of acute bleeding. Ecchymosis to left hand.). Absent: pedal edema, joint swelling Neurological exam: Present: alert, oriented X3, CN II-XII intact Psychiatric exam: Present: normal affect, normal mood Skin exam: Present: intact Course Vital Signs 11/01/21 12:01 Temperature 98.0 F Pulse Rate 97 Respiratory 18 Rate Blood Pressure 95/59 O2 Sat by Pulse 98 Oximetry Medical Decision Making - Medical Decision Making Repeat platelet low at 11. Case discussed with Brunilda her oncologic THERAPIST'S ASSISTANT who advised no need for transfer to their facility of [facility]. Will order platelet transfusion and admission for observation to [facility] emergency department physicians. Hemoglobin stable no evidence of bleeding with the exception of peripheral bruising to extremities. Case discussed with Dr. Green excepting [facility] emergency department physician along with Dr. Moeller. - Lab Data Result diagrams: 11/01/21 13:47 11/01/21 13:47 Lab Results 11/01/21 11/01/21 11/01/21 Range/Units 13:34 13:47 13:47 WBC 4.9 (3.8-10.6) k/uL RBC 3.42 L (3.80-5.40) m/uL Hgb 11.3 L (11.4-16.0) gm/dL Hct 34.5 (34.0-46.0) % MCV 100.8 H D (80.0-100.0) fL MCH 32.9 (25.0-35.0) pg MCHC 32.7 (31.0-37.0) g/dL RDW 19.3 H (11.5-15.5) % Plt Count 11 L* D (150-450) k/uL MPV 12.2 Neutrophils % Not Reportable Lymphocytes % Not Reportable Monocytes % Not Reportable Eosinophils % Not Reportable Basophils % Not Reportable Neutrophils # Not Reportable Lymphocytes # Not Reportable Monocytes # Not Reportable Eosinophils # Not Reportable Basophils # Not Reportable Hypochromasia Slight Anisocytosis Slight Macrocytosis Moderate ESR Cancelled PT (9.0-12.0) sec INR (<1.2) Sodium 137 (137-145) mmol/L Potassium 4.0 (3.5-5.1) mmol/L Chloride 104 (98-107) mmol/L Carbon Dioxide 27 (22-30) mmol/L Anion Gap 6 mmol/L BUN 16 (7-17) mg/dL Creatinine 1.05 H (0.52-1.04) mg/dL Est GFR (CKD-EPI)AfAm 62 (>60 ml/min/1.73 sqM) Est GFR (CKD-EPI)NonAf 54 (>60 ml/min/1.73 sqM) Glucose 84 (74-99) mg/dL Calcium 9.2 (8.4-10.2) mg/dL Total Bilirubin 0.3 (0.2-1.3) mg/dL AST 27 (14-36) U/L ALT 11 (4-34) U/L Alkaline Phosphatase 125 (38-126) U/L C-Reactive Protein 1.5 H (<1.0) mg/dL Total Protein 7.0 (6.3-8.2) g/dL Albumin 4.5 (3.5-5.0) g/dL Blood Type B Positive Blood Type Recheck B Pos Bld Type Recheck Status No Antibody Screen NEGATIVE Spec Expiration Date 11/04/2021 - 233311/01/21 Range/Units 13:47 WBC (3.8-10.6) k/uL RBC (3.80-5.40) m/uL Hgb (11.4-16.0) gm/dL Hct (34.0-46.0) % MCV (80.0-100.0) fL MCH (25.0-35.0) pg MCHC (31.0-37.0) g/dL RDW (11.5-15.5) % Plt Count (150-450) k/uL MPV Neutrophils % Lymphocytes % Monocytes % Eosinophils % Basophils % Neutrophils # Lymphocytes # Monocytes # Eosinophils # Basophils # Hypochromasia Anisocytosis Macrocytosis ESR PT 9.9 (9.0-12.0) sec INR 0.9 (<1.2) Sodium (137-145) mmol/L Potassium (3.5-5.1) mmol/L Chloride (98-107) mmol/L Carbon Dioxide (22-30) mmol/L Anion Gap mmol/L BUN (7-17) mg/dL Creatinine (0.52-1.04) mg/dL Est GFR (CKD-EPI)AfAm (>60 ml/min/1.73 sqM) Est GFR (CKD-EPI)NonAf (>60 ml/min/1.73 sqM) Glucose (74-99) mg/dL Calcium (8.4-10.2) mg/dL Total Bilirubin (0.2-1.3) mg/dL AST (14-36) U/L ALT (4-34) U/L Alkaline Phosphatase (38-126) U/L C-Reactive Protein (<1.0) mg/dL Total Protein (6.3-8.2) g/dL Albumin (3.5-5.0) g/dL Blood Type Blood Type Recheck Bld Type Recheck Status Antibody Screen Spec Expiration Date Disposition Clinical Impression: Thrombocythemia Disposition: ADMITTED IP TO THIS [facility] Condition: Stable Is patient prescribed a controlled substance at d/c from ED?: No Referrals: Balta Garcia MD [Primary Care Provider] - 1-2 days Time of Disposition: 15:32
[2021-11-01 14:33] LABS: INR 0.9 (<1.2); Prothrombin Time 9.9 sec (9.0-12.0)
[2021-11-01 14:36] LABS: Albumin 4.5 g/dL (3.5-5.0); C Reactive Protein 1.5 mg/dL (<1.0); Calcium 9.2 mg/dL (8.4-10.2); Total Bilirubin 0.3 mg/dL (0.2-1.3)
[2021-11-01 14:48] LABS: Anisocytosis Slight; HCT 34.5 % (34.0-46.0); HGB 11.3 gm/dL (11.4-16.0); Hypochromasia Slight; MCH 32.9 pg (25.0-35.0); MCHC 32.7 g/dL (31.0-37.0); MCV 100.8 fL (80.0-100.0); Macrocytosis Moderate; Mean Platelet Volume 12.2; RBC 3.42 m/uL (3.80-5.40); RDW 19.3 % (11.5-15.5); WBC 4.9 k/uL (3.8-10.6)
[2021-11-01 14:51] LABS: Platelet Count 11 k/uL (150-450)
[2021-11-01] MEDS ORDERED: ACETAMINOPHEN TAB 325 MG TAB PO PRN (15:22)
[2021-11-01] MEDS ORDERED: NALOXONE 0.4 MG/ML 1 ML VIAL IV PRN ×2 (15:22→15:47)
[2021-11-01 16:13] LABS: Lymphocytes # (M) 2.84 k/uL (1.0-4.8); Monocytes # (M) 0.54 k/uL (0-1.0); Neutrophils # (M) 1.52 k/uL (1.3-7.7); Neutrophils % (M) 31 %; Nucleated Red Blood Cells 0 /100 WBC (0-0); Total Cells Counted 100
--- NOTE | 2021-11-01 17:13 | P.HPIM ---
History of Present Illness H&P Date: 11/01/21 Patient is a 70-year-old female who was sent to the office by her primary care provider today after critical result lab for routine draw resulting in platelet count of 5 which is down from 27. She is following with oncology at [facility] for ovarian cancer. She completed chemotherapy in August of this year. Patient was on Zelgam and was discontinued week and half ago per her oncologist recommendation. Repeat platelet today is 11,000 She also has a past medical history significant for severe rheumatoid arthritis and she was in August until April 2021 prior to diagnosis PAIN. Patient Was Diagnosed with Ovarian Cancer in April 24 Status Post Removal of Left Ad nexal. Patient quit smoking in June 2021. Patient denies any bleeding gums. She denies hematuria, hematochezia or melena She is complaining of bruising all over her body. Patient denies recent travel sick contacts. Patient denies any fever or chills. Patient denies any chest pain or shortness of breath. She denies any weight loss. Patient denies any nausea vomiting or abdominal pain patient with diarrhea. Review of system: All 14 review of systems evaluated and all negative except for above. Physical examination: General: non toxic, no distress, appears at stated age Derm: warm, dry Head: atraumatic, normocephalic, symmetric Eyes: EOMI, no lid lag, anicteric sclera Mouth: no lip lesion, mucus membranes moist Cardiovascular: S1S2 reg, no murmur, positive posterior tibial pulse bilateral, Lungs: CTA bilateral, no rhonchi, no rales , no accessory muscle use Abdominal: soft, nontender to palpation, no guarding, no appreciable organomegaly Ext: no gross muscle atrophy, no edema, no contractures Neuro: CN II-XI grossly intact, no focal neuro deficits Psych: Alert, oriented, appropriate affect Skin: Multiple of the upper and lower extremities Assessment and plan: #Acute thrombocytopenia -Yesterday platelet count was 5000 today is 11,000 -Status post transfusion 1 unit of platelets. -Most likely secondary to chemotherapy. -Zelgam held by the patient's oncologist week and half ago -Consult hematology oncology #history of rheumatoid arthritis -Patient off Enbrel since April 2021 #depression and anxiety -Resume Cymbalta and Xanax #Pain syndrome -On Cymbalta and gabapentin #reformed smoker #DVT prophylaxis not indicated due to severe thrombotic cytopenia #Full code Past Medical History Past Medical History: Rheumatoid Arthritis (RA), Skin Disorder Additional Past Medical History / Comment(s): ARTHRITIC LUNG RT SIDE. ovarian cancer History of Any Multi-Drug Resistant Organisms: None Reported Past Surgical History: Appendectomy, Heart Catheterization, Hernia Repair, Hysterectomy, Tonsillectomy Additional Past Surgical History / Comment(s): RT HAND JOINT REPLACED/THO RACENTESIS 2008/RT FOOT SURG/BUNIONECTOMY Past Anesthesia/Blood Transfusion Reactions: No Reported Reaction Past Psychological History: Anxiety Past Alcohol Use History: Occasional Past Drug Use History: None Reported Medications and Allergies Home Medications Medication Instructions Recorded Confirmed Type ALPRAZolam [Xanax] 0.25 mg PO HS 09/14/13 11/01/21 History DULoxetine HCL [Cymbalta] 30 mg PO DAILY 11/01/21 11/01/21 History Gabapentin [Neurontin] 400 mg PO TID 11/01/21 11/01/21 History Ondansetron Odt [Zofran Odt] 8 mg PO DAILY 11/01/21 11/01/21 History Prochlorperazine [Compazine] 5 mg PO DAILY 11/01/21 11/01/21 History Allergies Allergy/AdvReac Type Severity Reaction Status Date / Time codeine Allergy Unknown Verified 11/01/21 16:26 propoxyphene napsylate Allergy Unknown Verified 11/01/21 16:26 [From Darcet-N 100] Physical Exam Vitals: Vital Signs Temp Pulse Resp BP Pulse Ox 11/01/21 16:41 98.4 F 77 18 131/81 11/01/21 12:01 98.0 F 97 18 95/59 98 Intake and Output 11/01/21 11/01/21 11/01/21 06:59 14:59 22:59 Intake Total 0 Balance 0 Intake: Blood Product 0 Platelet Pheresis Pas 0 Psoralen Unit [id number] Other: Weight 58.06 kg Results CBC & Chem 7: 11/01/21 13:47 11/01/21 13:47 Labs: Abnormal Lab Results - Last 24 Hours (Table) 11/01/21 11/01/21 Range/Units 13:47 13:47 RBC 3.42 L (3.80-5.40) m/uL Hgb 11.3 L (11.4-16.0) gm/dL MCV 100.8 H D (80.0-100.0) fL RDW 19.3 H (11.5-15.5) % Plt Count 11 L* D (150-450) k/uL Creatinine 1.05 H (0.52-1.04) mg/dL C-Reactive Protein 1.5 H (<1.0) mg/dL
[2021-11-01 22:21] VITALS: RESP 16
[2021-11-02 06:58] LABS: Anisocytosis Slight; HCT 27.2 % (34.0-46.0); MCH 33.5 pg (25.0-35.0); MCHC 33.6 g/dL (31.0-37.0); MCV 99.9 fL (80.0-100.0); Macrocytosis Moderate; RBC 2.72 m/uL (3.80-5.40); RDW 19.4 % (11.5-15.5); WBC 3.9 k/uL (3.8-10.6)
[2021-11-02 07:04] LABS: HGB 9.1 gm/dL (11.4-16.0)
[2021-11-02 08:52] LABS: African American GFR (CKD) 68.4 (60.0-200.0); Albumin 3.6 g/dL (3.8-4.9); Albumin/Globulin Ratio 1.99 (1.60-3.17); Anion Gap 7.3 mmol/L (10.00-18.00); BUN/Creat Ratio 14.91 Ratio (12.00-20.00); Blood Urea Nitrogen 14.4 mg/dL (9.0-27.0); C Reactive Protein 0.9 mg/dL (0.00-0.80); Calcium 8.7 mg/dL (8.7-10.3); Carbon Dioxide 27.7 mmol/L (20.0-27.5); Globulin 1.8 g/dL (1.6-3.3); Non-African American GFR(CKD) 59.1 (60.0-200.0); Potassium 3.9 mmol/L (3.5-5.5); Total Bilirubin 0.3 mg/dL (0.30-1.20); Total Protein 5.4 g/dL (6.2-8.2)
[2021-11-02 09:52] LABS: Platelet Count 47 k/uL (150-450)
[2021-11-02 10:01] LABS: Eosinophils # (M) 0.04 k/uL (0-0.7); Lymphocytes # (M) 2.26 k/uL (1.0-4.8); Monocytes # (M) 0.35 k/uL (0-1.0); Neutrophils # (M) 1.25 k/uL (1.3-7.7); Neutrophils % (M) 32 %; Nucleated Red Blood Cells 0 /100 WBC (0-0); Total Cells Counted 100
[2021-11-02 10:18] LABS: Erythrocyte Sedimentation Rate 52 mm/hr (0-20)
[2021-11-02 11:26] VITALS: BP 102/64; PULSE 72; TEMP 98.2
[2021-11-02] MEDS ORDERED: DULoxetine HCL 30 MG CAPSULE.DR PO SCH (13:45)
--- NOTE | 2021-11-02 14:46 | P.DS ---
Providers Date of admission: 11/01/21 15:22 Expected date of discharge: 11/02/21 Attending physician: Becca Rosa DO Consults: 11/01/21 16:46 Consult Physician Routine Consulting Provider: Kris Gonzalez Consult Reason/Comments: thrombocytopenia Do you want consulting provider notified?: Yes Primary care physician: Balta Garcia MD Hospital Course: History of Present Illness H&P Date: 11/01/21 Patient is a 70-year-old female who was sent to the office by her primary care provider today after critical result lab for routine draw resulting in platelet count of 5 which is down from 27. She is following with oncology at [facility] for ovarian cancer. She completed chemotherapy in August of this year. Patient was on Zelgam and was discontinued week and half ago per her oncologist recommendation. Repeat platelet today is 11,000 She also has a past medical history significant for severe rheumatoid arthritis and she was in August until April 2021 prior to diagnosis PAIN. Patient Was Diagnosed with Ovarian Cancer in April 24 Status Post Removal of Left Adnexal. Patient quit smoking in June 2021. Patient denies any bleeding gums. She denies hematuria, hematochezia or melena She is complaining of bruising all over her body. Patient denies recent travel sick contacts. Patient denies any fever or chills. Patient denies any chest pain or shortness of breath. She denies any weight loss. Patient denies any nausea vomiting or abdominal pain patient with diarrhea. Physical examination on discharge: General: non toxic, no distress, appears at stated age Derm: warm, dry Head: atraumatic, normocephalic, symmetric Eyes: EOMI, no lid lag, anicteric sclera Mouth: no lip lesion, mucus membranes moist Cardiovascular: S1S2 reg, no murmur, positive posterior tibial pulse bilateral, Lungs: CTA bilateral, no rhonchi, no rales , no accessory muscle use Abdominal: soft, nontender to palpation, no guarding, no appreciable organomegaly Ext: no gross muscle atrophy, no edema, no contractures Neuro: CN II-XI grossly intact, no focal neuro deficits Psych: Alert, oriented, appropriate affect Skin: Multiple of the upper and lower extremities Hospital course in detail the problem list #Acute thrombocytopenia -Status post transfusion 1 unit of plateletS -Platelet count [id number] -Most likely secondary to chemotherapy. 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 -Resume Cymbalta and gabapentin #reformed smoker Patient Condition at Discharge: Stable Plan - Discharge Summary Discharge Rx Participant: Yes New Discharge Prescriptions: Continue ALPRAZolam [Xanax] 0.25 mg PO HS Prochlorperazine [Compazine] 5 mg PO DAILY Ondansetron Odt [Zofran ODT] 8 mg PO DAILY Gabapentin [Neurontin] 400 mg PO TID DULoxetine HCL [Cymbalta] 30 mg PO DAILY Discharge Medication List ALPRAZolam [Xanax] 0.25 mg PO HS 09/14/13 [History] DULoxetine HCL [Cymbalta] 30 mg PO DAILY 11/01/21 [History] Gabapentin [Neurontin] 400 mg PO TID 11/01/21 [History] Ondansetron Odt [Zofran ODT] 8 mg PO DAILY 11/01/21 [History] Prochlorperazine [Compazine] 5 mg PO DAILY 11/01/21 [History] Follow up Appointment(s)/Referral(s): Balta Garcia MD [Primary Care Provider] - 1-2 days Discharge Disposition: HOME SELF-CARE
[2021-11-02] MEDS ORDERED: GABAPENTIN 400 MG CAP PO SCH (16:00)
--- NOTE | 2021-11-02 19:16 | P.CONS ---
History of Present Illness - Reason for Consult Consult date: 11/02/21 Thrombocytopenia Ovarian Cancer Requesting physician: Venancio Archuleta - History of Present Illness Patient was diagnosed with Ovarian cancer in April 2021, stage 2, she underwent debulking, MINNIE, 6 cyclts of carboplatin and taxol and now on maintenance with zejula. She recently upped her dosage to 3 pills daily, presented to her PCP for labs and was found to have platelet count of 5K ther efore she was directed to hospital for platelet transfusion and further evaluation. She is 46K today. Review of Systems All systems: negative Constitutional: Reports as per HPI Past Medical History Past Medical History: Rheumatoid Arthritis (RA) Additional Past Medical History / Comment(s): ARTHRITIC LUNG RT SIDE. neuropathy. ovarian cancer History of Any Multi-Drug Resistant Organisms: None Reported Past Surgical History: Appendectomy, Heart Catheterization, Hernia Repair, Hysterectomy, Tonsillectomy Additional Past Surgical History / Comment(s): RT HAND JOINT REPLACED/THORACENTESIS 2008/RT FOOT SURG/BUNIONECTOMY Past Anesthesia/Blood Transfusion Reactions: No Reported Reaction Past Psychological History: Anxiety Smoking Status: Former smoker Past Alcohol Use History: Occasional Past Drug Use History: None Reported - Past Family History Father Family Medical History: Myocardial Infarction ([place]) Additional Family Medical History / Comment(s): cirrhosis Mother Family Medical History: Cancer Additional Family Medical History / Comment(s): pancreatic cancer Sister(s) Family Medical History: Cancer Additional Family Medical History / Comment(s): lung cancer Medications and Allergies Home Medications Medication Instructions Recorded Confirmed Type ALPRAZolam [Xanax] 0.25 mg PO HS 09/14/13 11/01/21 History DULoxetine HCL [Cymbalta] 30 mg PO DAILY 11/01/21 11/01/21 History Gabapentin [Neurontin] 400 mg PO TID 11/01/21 11/01/21 History Ondansetron Odt [Zofran ODT] 8 mg PO DAILY 11/01/21 11/01/21 History Prochlorperazine [Compazine] 5 mg PO DAILY 11/01/21 11/01/21 History Allergies Allergy/AdvReac Type Severity Reaction Status Date / Time codeine Allergy Unknown Verified 11/01/21 16:26 egg Allergy Unknown Verified 11/02/21 06:41 propoxyphene napsylate Allergy Unknown Verified 11/01/21 16:26 [From Darvocet-N 100] Physical Exam Vitals: Vital Signs Temp Pulse Pulse Resp BP BP Pulse Ox 11/02/21 11:16 98.2 F 72 16 102/64 98 11/02/21 05:00 98.3 F 92 16 90/61 95 11/01/21 22:00 128/59 98 11/01/21 21:00 137/69 99 11/01/21 20:00 98.7 F 94 16 140/73 123/74 96 11/01/21 19:00 144/64 99 11/01/21 18:30 136/69 100 11/01/21 18:00 133/70 98 11/01/21 17:40 130/67 99 11/01/21 17:30 132/67 98 11/01/21 17:20 132/67 98 11/01/21 17:10 114/79 99 11/01/21 17:00 125/79 98 11/01/21 16:50 125/79 97 11/01/21 16:41 98.4 F 77 18 131/81 100 Intake and Output 11/01/21 11/02/21 11/02/21 22:59 06:59 14:59 Intake Total 330 Balance 330 Intake: Blood Product 330 Platelet Pheresis Pas 330 Psoralen Unit [id number] Other: Voiding Method Toilet # Voids 3 Weight 58.06 kg - Constitutional General appearance: cooperative, no acute distress - EENT Eyes: EOMI ENT: NA/AT - Respiratory Respiratory: bilateral: CTA - Cardiovascular Rhythm: regular - Gastrointestinal General gastrointestinal: soft - Integumentary Integumentary: pale - Neurologic Neurologic: CNII-XII intact - Musculoskeletal Musculoskeletal: generalized weakness - Psychiatric Psychiatric: A&O x's 3 Results CBC & Chem 7: 11/02/21 06:12 11/02/21 06:12 Labs: Abnormal Lab Results - Last 24 Hours (Table) 11/01/21 11/01/21 11/02/21 Range/Units 13:47 13:47 06:12 RBC 3.42 L 2.72 L (3.80-5.40) m/uL Hgb 11.3 L 9.1 L D (11.4-16.0) gm/dL Hct 27.2 L (34.0-46.0) % MCV 100.8 H D (80.0-100.0) fL RDW 19.3 H 19.4 H (11.5-15.5) % Plt Count 11 L* D 47 L D (150-450) k/uL Neutrophils # (Manual) 1.25 L (1.3-7.7) k/uL ESR 52 H (0-20) mm/hr Carbon Dioxide (20.0-27.5) mmol/L Anion Gap (10.00-18.00) mmol/L Creatinine 1.05 H (0.52-1.04) mg/dL Est GFR (CKD-EPI)NonAf (60.0-200.0) C-Reactive Protein 1.5 H (<1.0) mg/dL Total Protein (6.2-8.2) g/dL Albumin (3.8-4.9) g/dL 11/02/21 Range/Units 06:12 RBC (3.80-5.40) m/uL Hgb (11.4-16.0) gm/dL Hct (34.0-46.0) % MCV (80.0-100.0) fL RDW (11.5-15.5) % Plt Count (150-450) k/uL Neutrophils # (Manual) (1.3-7.7) k/uL ESR (0-20) mm/hr Carbon Dioxide 27.7 H (20.0-27.5) mmol/L Anion Gap 7.30 L (10.00-18.00) mmol/L Creatinine (0.52-1.04) mg/dL Est GFR (CKD-EPI)NonAf 59.1 L (60.0-200.0) C-Reactive Protein 0.90 H (<1.0) mg/dL Total Protein 5.4 L (6.2-8.2) g/dL Albumin 3.6 L (3.8-4.9) g/dL Assessment and Plan (1) Thrombocytopenia Narrative/Plan: PLatelets likely dropp from Parp inhibitor, responded to transfusion Ok with discharge, knows if any signs of active bleeding to return at bedside Status: Acute Code(s): D69.6 - THROMBOCYTOPENIA, UNSPECIFIED SNOMED Code(s): 527452878 (2) Ovarian cancer Narrative/Plan: Dora on hold will follow up with primary oncologist to resume Status: Acute Code(s): C56.9 - MALIGNANT NEOPLASM OF UNSPECIFIED OVARY SNOMED Code(s): 777912129
[2021-11-02] MEDS ORDERED: ALPRAZolam 0.25 MG TAB PO SCH (21:00)
[2021-11-03] MEDS ORDERED: PROCHLORPERAZINE 5 MG TAB PO SCH (09:00)
[2021-11-03] MEDS ORDERED: ONDANSETRON ODT 8 MG TAB.RAPDIS PO SCH (09:00)
== END 2021-11-02 15:20 | disposition home or self-care (01) | DRG 813 ==
LOC: EC 11:28 → 5NMEDONC 15:22
PROVIDERS: ADMIT Internal Medicine; ATTEND Internal Medicine
PROC: 30233R1 Transfusion of Nonautologous Platelets into Peripheral Vein, Percutaneous Approach (ICD-10-PCS; principal; 2021-11-01)
DX: D69.59 Other secondary thrombocytopenia (principal); C56.9 Malignant neoplasm of unspecified ovary; T45.1X5A Adverse effect of antineoplastic and immunosuppressive drugs, initial encounter; M06.9 Rheumatoid arthritis, unspecified; G62.0 Drug-induced polyneuropathy; S80.11XA Contusion of right lower leg, initial encounter; F32.A Depression, unspecified; F41.9 Anxiety disorder, unspecified; Z79.899 Other long term (current) drug therapy; Z92.21 Personal history of antineoplastic chemotherapy; Z87.891 Personal history of nicotine dependence; Z90.710 Acquired absence of both cervix and uterus; Z90.721 Acquired absence of ovaries, unilateral; Z88.5 Allergy status to narcotic agent; Z80.1 Family history of malignant neoplasm of trachea, bronchus and lung; Z80.0 Family history of malignant neoplasm of digestive organs
CPT/HCPCS: 36415; 80053; 82378; 82607; 82747; 84443; 85025; 85610; 85652; 86140; 86304; 86850; 86900; 86901; 99284

== ENCOUNTER 2022-01-14 10:05 | Day surgery (SDC) | payer MEDICARE, BC ==
[2022-01-11 10:08] VITALS: BMI 20.7
[~2022-01-14 10:05] MED LIST changes: -ACETAMINOPHEN TAB 325 MG TAB PO ONE; +ACETAMINOPHEN TAB 500 MG TAB PO PRN; +DEXAMETHASONE SOD PHOSPHATE 4 MG/ML 1 ML VIAL IV ONE; +HEPARIN SODIUM,PORCINE/PF 5,000 UNIT/0.5 ML SYRINGE SQ PRN; +HYDROmorphone 0.5 MG/0.5 ML SYRINGE IVP PRN; -INFLIXIMAB-DYYB 300 MG in SODIUM CHLORIDE 0.9% 250 ML IV NR; +LACTATED RINGERS 1,000 ML IV SCH; +ONDANSETRON 4 MG/2 ML VIAL IVP ONE; -SODIUM CHLORIDE 0.9% 500 ML 500 ML in EMPTY BAG 1 BAG IV PRN; -diphenhydrAMINE 25 MG CAP PO ONE
[2022-01-14 10:29] VITALS: RESP 16; TEMP 97
--- NOTE | 2022-01-14 12:10 | P.GSHP ---
History of Present Illness H&P Date: 01/14/22 Chief Complaint: Ovarian cancer 71-year-old female here today for Port-A-Cath removal. Patient has used this Port-A-Cath for the last 10 months or so. She has not needed it for chemotherapy for the last few months. Was last flushed one month ago. No issues with the port. Past Medical History Past Medical History: Rheumatoid Arthritis (RA) Additional Past Medical History / Comment(s): ARTHRITIC LUNG RT SIDE. neuropathy. ovarian cancer History of Any Multi-Drug Resistant Organisms: None Reported Past Surgical History: Appendectomy, Heart Catheterization, Hernia Repair, Hysterectomy, Tonsillectomy Additional Past Surgical History / Comment(s): RT HAND JOINT REPLACED/THORACENTESIS 2008/RT FOOT SURG/BUNIONECTOMY Past Anesthesia/Blood Transfusion Reactions: No Reported Reaction Smoking Status: Former smoker - Past Family History Father Family Medical History: Myocardial Infarction ([place]) Additional Family Medical History / Comment(s): . Mother Family Medical History: Cancer Additional Family Medical History / Comment(s): pancreatic cancer Sister(s) Family Medical History: Cancer Additional Family Medical History / Comment(s): lung cancer Medications and Allergies Home Medications Medication Instructions Recorded Confirmed Type ALPRAZolam [Xanax] 0.25 mg PO HS 09/14/13 01/14/22 History DULoxetine HCL [Cymbalta] 30 mg PO DAILY 11/01/21 01/14/22 History Gabapentin [Neurontin] 400 mg PO TID 11/01/21 01/14/22 History Ondansetron Odt [Zofran ODT] 8 mg PO DAILY 11/01/21 01/14/22 History Prochlorperazine [Compazine] 5 mg PO DAILY 11/01/21 01/14/22 History Zejula(Dose Unknown) 2 cap PO HS 01/11/22 01/14/22 History Allergies Allergy/AdvReac Type Severity Reaction Status Date / Time adhesive tape Allergy bruise,torn Verified 01/14/22 10:22 skin codeine Allergy Unknown Verified 01/14/22 10:22 egg Allergy Unknown Verified 01/14/22 10:22 propoxyphene napsylate Allergy Unknown Verified 01/14/22 10:22 [From [facility]-N 100] bandaid Allergy bruise, Uncoded 01/14/22 10:22 torn skin Surgical - Exam Vital Signs Temp Pulse Resp BP Pulse Ox 97.0 F L 86 16 113/73 99 01/14/22 10:27 01/14/22 10:27 01/14/22 10:27 01/14/22 10:01/14/22 10:27 Physical exam: General: Well-developed, well-nourished HEENT: Normocephalic, sclerae nonicteric Abdomen: Nontender, nondistended Extremities: No edema Neuro: Alert and oriented Chest: Right-sided Port-A-Cath in place Assessment and Plan (1) Ovarian cancer Narrative/Plan: 71-year-old female with ovarian cancer. Patient doing well and no longer requires a Port-A-Cath. Will remove Port-A-Cath at this time. Current Visit: No Status: Acute Code(s): C56.9 - MALIGNANT NEOPLASM OF UNSPECIFIED OVARY SNOMED Code(s): 074373663
[2022-01-14] MEDS ORDERED: MIDAZOLAM 2 MG/2 ML VIAL ONE (12:12)
[2022-01-14] MEDS ORDERED: LIDOCAINE 2% INJ 20 MG/ML (2 ML VIAL) ONE (12:12)
[2022-01-14] MEDS ORDERED: PROPOFOL 10 MG/ML 20 ML VIAL IV ONE (12:12)
[2022-01-14] MEDS ORDERED: fentaNYL (PF) 50 MCG/ML 2 ML AMP ONE (12:12)
[2022-01-14] MEDS ORDERED: LIDOCAINE 1% INJ 10MG/ML (20 ML MDV) SQ ONE ×3 (12:24→12:32)
[2022-01-14] MEDS ORDERED: NALOXONE 0.4 MG/ML 1 ML VIAL IV PRN (12:46)
--- NOTE | 2022-01-14 12:47 | P.OP ---
Date of Procedure: 01/14/22 Procedure(s) Performed: PREOPERATIVE DIAGNOSIS: Ovarian cancer POSTOPERATIVE DIAGNOSIS: Same PROCEDURE: Port-A-Cath removal SURGEON: Van EBL: Minimal ANESTHESIA: Sedation COMPLICATIONS: None OPERATIVE PROCEDURE: Patient was placed in the supine position. The patient was sedated per anesthesia that time. The chest was prepped and draped in the usual sterile fashion. The skin was localized with Marcaine solution. The previous incision was re-incised using a scalpel. The port was easily excised using accommodation of blunt dissection sharp dissection and electrocautery. The subcutaneous tissues were reapproximated using 3-0 Vicryl sutures. The skin was reapproximated using 4-0 Monocryl sutures. Skin glue was then applied. DISPOSITION: Stable to recovery room
[2022-01-14 13:08] VITALS: BP 105/67; PULSE 68
== END 2022-01-14 13:28 | disposition home or self-care (01) ==
LOC: OR 10:05
PROVIDERS: ATTEND Surgery
DX: C56.9 Malignant neoplasm of unspecified ovary (principal); M05.10 Rheumatoid lung disease with rheumatoid arthritis of unspecified site; G62.9 Polyneuropathy, unspecified; Z90.710 Acquired absence of both cervix and uterus; Z45.2 Encounter for adjustment and management of vascular access device; Z98.890 Other specified postprocedural states; Z90.49 Acquired absence of other specified parts of digestive tract; Z95.9 Presence of cardiac and vascular implant and graft, unspecified; Z90.89 Acquired absence of other organs; Z87.891 Personal history of nicotine dependence; Z82.49 Family history of ischemic heart disease and other diseases of the circulatory system; Z80.42 Family history of malignant neoplasm of prostate; Z80.1 Family history of malignant neoplasm of trachea, bronchus and lung; Z88.5 Allergy status to narcotic agent
CPT/HCPCS: 36590; J2250; J1100; J0690; J2405; J2001 ×2; J3010; J2704; J1644

== ENCOUNTER 2022-03-11 17:12 | Emergency (ER) | payer OTHER, BC, MEDICARE ==
[2022-03-11 17:23] VITALS: TEMP 97.6
[2022-03-11] MEDS ORDERED: RX INFO: IV CONTRAST WAS GIVEN 1 EACH MISC MISCELLANE PRN (17:56)
[2022-03-11] MEDS ORDERED: MORPHINE SULFATE 4 MG/ML SYRINGE IVP STA ×2 (18:00→20:11)
[2022-03-11 18:27] LABS: Anisocytosis Slight; Basophils # (A) 0.1 k/uL (0-0.2); Basophils % (A) 1 %; Eosinophils # (A) 0.2 k/uL (0-0.7); Eosinophils % (A) 2 %; HCT 36.9 % (34.0-46.0); HGB 11.6 gm/dL (11.4-16.0); Hypochromasia Moderate; Lymphocytes % (A) 17 %; MCH 30.9 pg (25.0-35.0); MCHC 31.3 g/dL (31.0-37.0); MCV 98.7 fL (80.0-100.0); Macrocytosis Slight; Mean Platelet Volume 8.1; Monocytes # (A) 0.5 k/uL (0-1.0); Monocytes % (A) 4 %; Neutrophils # (A) 8.4 k/uL (1.3-7.7); Neutrophils % (A) 75 %; Platelet Count 227 k/uL (150-450); RBC 3.74 m/uL (3.80-5.40); RDW 17.7 % (11.5-15.5); WBC 11.2 k/uL (3.8-10.6)
[2022-03-11 18:35] LABS: Partial Thromboplastin Time 22.2 sec (22.0-30.0); Prothrombin Time 10.5 sec (9.0-12.0)
[2022-03-11 18:36] LABS: Albumin 4.3 g/dL (3.5-5.0); Calcium 9.2 mg/dL (8.4-10.2); Potassium 4.5 mmol/L (3.5-5.1); Total Bilirubin 0.5 mg/dL (0.2-1.3); Total Protein 6.9 g/dL (6.3-8.2)
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
--- NOTE | 2022-03-11 19:22 | XR ---
EXAMINATION TYPE: XR foot complete RT DATE OF EXAM: 03/11/2022 COMPARISON: NONE HISTORY: Foot pain TECHNIQUE: 3 view FINDINGS: There is previous surgery with screw in the first metatarsal head. I see no acute fracture nor dislocation. The toes are intact. There are no erosions. No subluxation. IMPRESSION: No acute abnormality of the right foot.
--- NOTE | 2022-03-11 19:25 | XR ---
EXAMINATION TYPE: XR tibia fibula RT DATE OF EXAM: 03/11/2022 COMPARISON: NONE HISTORY: Laceration TECHNIQUE: 4 views FINDINGS: Ankle mortise is anatomic. I see no fracture nor dislocation. Joint spaces are normal. Knee joint is intact. IMPRESSION: Negative right tibia and fibula exam. No fracture seen.
--- NOTE | 2022-03-11 19:31 | XR ---
EXAMINATION TYPE: XR wrist complete RT DATE OF EXAM: 03/11/2022 COMPARISON: NONE HISTORY: Lacerations TECHNIQUE: 4 views FINDINGS: There is some narrowing of the radiocarpal joint space. There is narrowing and spurring at the first carpometacarpal joint. There is significant subluxation deformities at the second through f ifth MP joints. There is prosthetic joints at the MP joints of all of the fingers. There are multiple dislocations. IMPRESSION: Intercarpal joint space narrowing without significant spurring and consistent with rheum atoid arthritis. Significant subluxation deformities with dislocations at the MP joints. No acute fra cture seen.
--- NOTE | 2022-03-11 19:36 | XR ---
EXAMINATION TYPE: XR forearm LT DATE OF EXAM: 03/11/2022 COMPARISON: NONE HISTORY: Laceration TECHNIQUE: 2 views FINDINGS: There is absence of the distal end of the ulna. There is narrowing of the radiocarpal joint space. The elbow joint is anatomic. I see no acute fracture nor dislocation. There is narrowing of t he intercarpal joint spaces. IMPRESSION: Changes at the carpus consistent with inflammatory arthritis. No acute bony abnormality. No fracture seen.
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
[2022-03-11 21:14] VITALS: BP 137/78; PULSE 84; RESP 17
== END 2022-03-11 21:15 | disposition home or self-care (01) ==
LOC: EC 17:12
DX: S22.22XA Fracture of body of sternum, initial encounter for closed fracture (principal); S61.419A Laceration without foreign body of unspecified hand, initial encounter; S06.0X0A Concussion without loss of consciousness, initial encounter; M79.671 Pain in right foot; F41.9 Anxiety disorder, unspecified; Z87.891 Personal history of nicotine dependence; Z91.012 Allergy to eggs; Z91.048 Other nonmedicinal substance allergy status; Z88.5 Allergy status to narcotic agent; V89.2XXA Person injured in unspecified motor-vehicle accident, traffic, initial encounter
CPT/HCPCS: 36415; 93005; 80053; 84484; 85025; 85610; 85730; 73090; 73110; 73590; 73630; 72125; 70450; 71260; 99285; 96374; 96376; J2270; Q9967

== ENCOUNTER 2022-04-12 06:04 | Inpatient (IN) | payer MEDICARE, BC ==
[2022-04-12] MEDS ORDERED: DIPH,PERTUS(ACELL)TETVAC-LF 0.5 ML VIAL IM ONE (06:18)
[2022-04-12] MEDS ORDERED: HYDROmorphone 0.5 MG/0.5 ML SYRINGE IVP STA (06:18)
--- NOTE | 2022-04-12 06:29 | XR ---
EXAMINATION TYPE: XR shoulder complete RT DATE OF EXAM: 04/12/2022 CLINICAL HISTORY: Injury with pain TECHNIQUE: Attempted Three views of the right shoulder are ordered. COMPARISON: None. FINDINGS: Osseous structures are demineralized. There is acute comminuted displaced fracture through the surgical neck right proximal humerus with impaction and medial displacement of the large distal f racture fragment. Smaller fracture fragments involving the greater tuberosity are present. No glenohu meral joint dislocation. Visualized ribs are intact. IMPRESSION: As above.
--- NOTE | 2022-04-12 06:59 | ED ---
Fall HPI - General Chief Complaint: Fall Stated Complaint: fall Time Seen by Provider: 04/12/22 06:08 Source: patient, family, EMS Mode of arrival: EMS Limitations: physical limitation - History of Present Illness Initial Comments: This a 71-year-old female presents emergency department via EMS chief complaint of a fall. Patient reportedly got a bed she ended up falling down her stairs fraction 5-6 stairs. Patient does not take any blood thinners. Patient does have skin tear to her right forearm complaint right shoulder pain, right-sided facial pain. Patient was placed in c-collar by EMS patient did receive fentanyl by EMS prior arrival. Patient states it helped some but is wearing off. She denies any low back pain denies any lower extremity trauma. Patient states that she has no chest pain or shortness of breath patient is on current treatment for ovarian cancer. - Related Data Home Medications Medication Instructions Recorded Confirmed ALPRAZolam [Xanax] 0.25 mg PO HS 09/14/13 01/14/22 DULoxetine HCL [Cymbalta] 30 mg PO DAILY 11/01/21 01/14/22 Gabapentin [Neurontin] 400 mg PO TID 11/01/21 01/14/22 Ondansetron Odt [Zofran ODT] 8 mg PO DAILY 11/01/21 01/14/22 Prochlorperazine [Compazine] 5 mg PO DAILY 11/01/21 01/14/22 Zejula(Dose Unknown) 2 cap PO HS 01/11/22 01/14/22 Previous Rx's Medication Instructions Recorded HYDROcodone/APAP 7.5-325MG [[place] 1 tab PO Q6HR PRN 3 Days #12 tab 03/11/22 7.5-325] Allergies Allergy/AdvReac Type Severity Reaction Status Date / Time adhesive tape Allergy bruise,torn Verified 04/12/22 06:19 skin codeine Allergy Unknown Verified 04/12/22 06:19 egg Allergy Unknown Verified 04/12/22 06:19 propoxyphene napsylate Allergy Unknown Verified 04/12/22 06:19 [From Darmoniquecet-N 100] bandaid Allergy bruise, Uncoded 04/12/22 06:19 torn skin Review of Systems ROS Statement: Those systems with pertinent positive or pertinent negative responses have been documented in the HPI. ROS Other: All systems not noted in ROS Statement are negative. Past Medical History Past Medical History: Rheumatoid Arthritis (RA) Additional Past Medical History / Comment(s): ARTHRITIC LUNG RT SIDE. neuropathy. ovarian cancer History of Any Multi-Drug Resistant Organisms: None Reported Past Surgical History: Appendectomy, Heart Catheterization, Hernia Repair, Hysterectomy, Tonsillectomy Additional Past Surgical History / Comment(s): RT HAND JOINT REPLACED/ THORACENTESIS 2009/RT FOOT SURG/BUNIONECTOMY Past Anesthesia/Blood Transfusion Reactions: No Reported Reaction Past Psychological History: Anxiety Smoking Status: Former smoker Past Alcohol Use History: Occasional Past Drug Use History: None Reported - Past Family History Father Family Medical History: Myocardial Infarction ([place]) Additional Family Medical History / Comment(s): . Mother Family Medical History: Cancer Additional Family Medical History / Comment(s): pancreatic cancer Sister(s) Family Medical History: Cancer Additional Family Medical History / Comment(s): lung cancer General Exam Limitations: physical limitation General appearance: alert, in no apparent distress Head exam: Present: atraumatic, normocephalic. Absent: normal inspection (Right-sided facial swelling, small abrasion right periorbital region) Eye exam: Present: PERRL, EOMI, periorbital swelling, periorbital tenderness (Right). Absent: normal appearance (Small subconjunctival hemorrhage on the right), scleral icterus, conjunctival injection ENT exam: Present: normal exam, normal oropharynx, mucous membranes moist Neck exam: Present: normal inspection. Absent: tenderness, meningismus, full ROM (Patient in c-collar, no tenderness), lymphadenopathy Respiratory exam: Present: normal lung sounds bilaterally. Absent: respiratory distress, wheezes, rales, rhonchi, stridor, chest wall tenderness Cardiovascular Exam: Present: regular rate, normal rhythm, normal heart sounds. Absent: systolic murmur, diastolic murmur, rubs, gallop, clicks GI/Abdominal exam: Present: soft, normal bowel sounds. Absent: distended, tenderness, guarding, rebound, rigid Extremities exam: Present: other (Right shoulder severe times with palpation, obvious deformity, neurovascular intact left shoulder full range of motion left arm nontender) Back exam: Present: full ROM. Absent: tenderness, paraspinal tenderness, vertebral tenderness Neurological exam: Present: alert, oriented X3, CN II-XII intact, reflexes normal. Absent: motor sensory deficit Skin exam: Present: warm, dry, intact, normal color. Absent: rash Course Vital Signs 04/12/22 06:09 Temperature 96.8 F L Pulse Rate 58 L Respiratory 18 Rate Blood Pressure 160/77 O2 Sat by Pulse 97 Oximetry Medical Decision Making - Medical Decision Making 71-year-old female presented for a fall. Patient complains of right shoulder pain x-ray interpreted shows right proximal humerus fracture, CT the brain, C- spine is unremarkable patient later complained of hip pain. X-ray interpreted of the pelvis showing right subcapital fracture. I did discuss case with Dr. Gates who accepts admission presented for labs, chest x-ray were ordered Disposition Clinical Impression: Fall, Facial contusion, Closed fracture of right proximal humerus, Subcapital f racture of right femur Disposition: ADMITTED IP TO THIS [facility] Condition: Fair Referrals: None,Stated [Primary Care Provider] - 1-2 days Time of Disposition: 07:42
--- NOTE | 2022-04-12 07:04 | XR ---
EXAMINATION TYPE: XR pelvis AP view DATE OF EXAM: 04/12/2022 CLINICAL HISTORY: Pain after injury. TECHNIQUE: A single AP view of the pelvis is obtained. COMPARISON: CT September 07, 2021. FINDINGS: There is acute displaced subcapital fracture right proximal femur. No hip dislocation. Th e sacroiliac joints appear symmetric and within normal limits. Pubic symphysis is intact. Surgical cl ips overlie the right pelvis similar to prior. IMPRESSION: There is acute displaced impacted subcapital fracture right hip.
--- NOTE | 2022-04-12 07:08 | CT ---
EXAMINATION TYPE: CT brain cspine wo con, CT facial bones wo con DATE OF EXAM: 04/12/2022 COMPARISON: Prior trauma CT March 11, 2022. HISTORY: Fall injury with pain. CT DLP: 953.1 mGycm. Automated Exposure Control for Dose Reduction was Utilized. TECHNIQUE: CT scan of the head , facial bones, and cervical spine are performed without contrast. FINDINGS: There is no acute intracranial hemorrhage or midline shift identified. Stable mild ventri cular and sulcal prominence. Cordero-white matter differentiation is preserved. The calvarium is intact. The mandible is intact. Temporomandibular joints are maintained bilaterally. Zygomatic arches are int act. The nasal bones are intact. There is mild to moderate soft tissue swelling and hematoma over the right orbit extending laterally over the zygoma. The orbital floors and barnhart are intact. The globes are intact bilaterally. Intraconal fat is preserved. The maxilla is grossly intact. Pterygoid plates are intact. There is a large mucous retention cyst or polyp in the superior right maxillary sinus po steriorly otherwise paranasal sinuses are clear. Cervical spine is visualized in its entirety from C1 through upper thoracic levels and demonstrates s table grade 1 retrolisthesis C5 on C6 and to lesser degree retrolisthesis C4 on C5 without evidence o f acute fracture or dislocation. Prevertebral soft tissue remains within normal limits. The C1-C2 a rticulation is within normal limits on coronal images. Vertebral body height are maintained. Moderate disc space narrowing and spurring C5-C6 level. Posterior spur disc complexes efface the anterior the lyndsey sac C4 to C5-C6 and C7 levels. Axial images show minimal plaque at right carotid bulb. Normal thy roid gland is seen. Lung apices show emphysematous change without pneumothorax. IMPRESSION: 1. There is no acute fracture or dislocation evident in the cervical spine. No significant change fro m prior CT. 2. No acute intracranial hemorrhage or midline shift is seen. 3. Small to moderate size acute right preorbital soft tissue hematoma extending over the right cheek. No acute displaced facial bone fracture.
[2022-04-12] MEDS ORDERED: NALOXONE 0.4 MG/ML 1 ML VIAL IV PRN (07:43)
[2022-04-12] MEDS ORDERED: HYDROmorphone 0.5 MG/0.5 ML SYRINGE IVP PRN ×3 (07:43→17:16)
[2022-04-12 08:09] LABS: Basophils % (A) 0 %; Eosinophils % (A) 0 %; HCT 32.3 % (34.0-46.0); HGB 10.5 gm/dL (11.4-16.0); Hypochromasia Slight; Lymphocytes # (A) 1.3 k/uL (1.0-4.8); Lymphocytes % (A) 13 %; MCH 32.8 pg (25.0-35.0); MCHC 32.4 g/dL (31.0-37.0); MCV 101.3 fL (80.0-100.0); Macrocytosis Slight; Mean Platelet Volume 8.4; Monocytes # (A) 0.6 k/uL (0-1.0); Monocytes % (A) 6 %; Neutrophils % (A) 80 %; Platelet Count 220 k/uL (150-450); RBC 3.19 m/uL (3.80-5.40); WBC 10.1 k/uL (3.8-10.6)
[2022-04-12] MEDS: HYDROmorphone 1 MG/ML 1 ML SYRINGE IVP PRN ×2 (08:11→11:40)
[2022-04-12] MEDS: SODIUM CHLORIDE 0.9% 1,000 ML IV SCH ×2 (08:11→23:45)
[2022-04-12] MEDS: ONDANSETRON 4 MG/2 ML VIAL IVP PRN ×2 (08:17→20:57)
[2022-04-12 08:21] LABS: Albumin 3.6 g/dL (3.5-5.0); Calcium 8.3 mg/dL (8.4-10.2); Potassium 3.8 mmol/L (3.5-5.1); Total Bilirubin 0.3 mg/dL (0.2-1.3); Total Protein 6.1 g/dL (6.3-8.2)
[2022-04-12 08:30] LABS: Partial Thromboplastin Time 23.3 sec (22.0-30.0); Prothrombin Time 10.3 sec (9.0-12.0)
--- NOTE | 2022-04-12 08:33 | XR ---
EXAMINATION TYPE: XR chest 1V DATE OF EXAM: 04/12/2022 CLINICAL HISTORY: Presurgical. TECHNIQUE: Single AP portable frontal upright view of the chest is obtained. COMPARISON: Chest CT March 11, 2022 FINDINGS: There is background chronic emphysematous change without suspicious focal air space opacit y, pleural effusion, or pneumothorax seen. The cardiac silhouette size is stable and upper limits of normal. The osseous structures are demineralized. Acute displaced comminuted fracture surgical nec k right humerus noted. IMPRESSION: Chronic changes without acute pulmonary process.
--- NOTE | 2022-04-12 10:10 | CT ---
EXAMINATION TYPE: CT shoulder RT wo con CT DLP: 316.6 mGycm, Automated exposure control for dose reduction was used. DATE OF EXAM: 04/12/2022 9:40 AM COMPARISON: Right shoulder radiograph 04/12/2022. CLINICAL INDICATION:Female, 71 years old with history of proximal humerus fracture; PHH, fall right h umerus fx TECHNIQUE: Axial images were obtained of the right shoulder without the use of IV contrast. Addition al coronal and sagittal reformatted images and soft tissue and bone window were obtained for review. 3-D reconstruction was created on a separate workstation. FINDINGS: Acute comminuted displaced fracture through the surgical neck of the right proximal humerus with impaction and lateral displacement of a large distal fracture fragment. There is approximately 1.9 cm of medial displacement of the humeral diaphysis from the humeral head. Smaller fracture fragme nts are again seen involving the greater tuberosity. There is surrounding small hematoma and edema. N o glenohumeral joint dislocation. Visualized chest is unremarkable. IMPRESSION: Redemonstration of acute comminuted displaced fracture through the surgical neck of the right proxima l humerus with additional comminuted fracture of the greater tuberosity. No dislocation.
--- NOTE | 2022-04-12 10:26 | P.HPOR ---
History of Present Illness H&P Date: 04/12/22 Chief Complaint: Right hip and shoulder injury The patient is a 71 y/o female with a past medical history of rheumatoid arthritis and ovarian cancer who presented to the ER via EMS after sustaining a fall down 5-6 stairs at home. She does not remember falling. X-rays in the ER reveal a right femoral neck fracture and a proximal humerus fracture. Her right orbit is very swollen and bleeding on arrival. CT of the head, neck, and orbit reveal no fractures or bleed. The patient is under treatment with chemo for ovarian cancer and just finished a round recently. She sees an oncologist in [place]. She normally does not use a cane or walker. She will be adm itted to orthopedics for further evaluation and surgical intervention for the hip fracture. Review of Systems Constitutional: Denies chills, Denies fatigue, Denies fever Cardiovascular: Denies chest pain, Denies shortness of breath Gastrointestinal: Denies diarrhea, Denies nausea, Denies vomiting Musculoskeletal: right: hip pain, hip stiffness, hip swelling, shoulder pain, shoulder stiffness, shoulder swelling Past Medical History Past Medical History: Rheumatoid Arthritis (RA) Additional Past Medical History / Comment(s): ARTHRITIC LUNG RT SIDE. neuropathy. ovarian cancer History of Any Multi-Drug Resistant Organisms: None Reported Past Surgical History: Appendectomy, Heart Catheterization, Hernia Repair, Hysterectomy, Tonsillectomy Additional Past Surgical History / Comment(s): RT HAND JOINT REPLACED/THORACENTESIS 2008/RT FOOT SURG/BUNIONECTOMY Past Anesthesia/Blood Transfusion Reactions: No Reported Reaction Past Psychological History: Anxiety Smoking Status: Former smoker Past Alcohol Use History: Occasional Past Drug Use History: None Reported - Past Family History Father Family Medical History: Myocardial Infarction ([place]) Additional Family Medical History / Comment(s): . Mother Family Medical History: Cancer Additional Family Medical History / Comment(s): pancreatic cancer Sister(s) Family Medical History: Cancer Additional Family Medical History / Comment(s): lung cancer Medications and Allergies Home Medications Medication Instructions Recorded Confirmed Type ALPRAZolam [Xanax] 0.25 mg PO BID 09/14/13 04/12/22 History DULoxetine HCL [Cymbalta] 30 mg PO DAILY 11/01/21 04/12/22 History Gabapentin [Neurontin] 400 mg PO TID 11/01/21 04/12/22 History Acetaminophen Tab [Tylenol Tab] 500 - 1,000 mg PO Q6HR PRN 04/12/22 04/12/22 History Etanercept [Enbrel] 1 dose SQ DIRECTED 04/12/22 04/12/22 History Niraparib Tosylate [Zejula] 100 mg PO DAILY 04/12/22 04/12/22 History Zolpidem Tartrate [Zolpidem 12.5 mg PO HS 04/12/22 04/12/22 History Tartrate ER] Allergies Allergy/AdvReac Type Severity Reaction Status Date / Time adhesive tape Allergy bruise,torn Verified 04/12/22 10:53 skin codeine Allergy Unknown Verified 04/12/22 10:53 diphenhydramine Allergy Verified 04/12/22 12:06 [From Benadryl] egg Allergy Unknown Verified 04/12/22 10:53 levofloxacin [From Levaquin] Allergy Verified 04/12/22 12:06 propoxyphene napsylate Allergy Unknown Verified 04/12/22 10:53 [From Darvocet-N 100] bandaid Allergy bruise, Uncoded 04/12/22 06:19 torn skin Physical Examination The patient is an 71 year-old female in no acute distress. She is alert and oriented 3. The patient's head is normocephalic. There is bruising and dried blood to the right orbit. No pain upon palpation to the cervical spine, no step-offs noted. Exam of the left upper extremity reveal no obvious deformities or wounds. There is pain and swelling to the right shoulder. Sling in place. Exam of the left lower extremity reveals no deformity or wounds. No pain upon range of motion of the left leg. Exam of the right lower extremity reveals severe guarding to the right hip. There is pain to palpation to the lateral hip. There is pain to external and internal rotation of the right hip. Calf is soft and nontender. She is able to wiggle her toes. Good hand and wrist motion on the right. Circulatory status is intact. Results X-rays of the pelvis reveal a femoral neck fracture. X-rays of the right proximal humerus reveal a displaced neck fracture. - Labs Labs: Abnormal Lab Results - Last 24 Hours (Table) 04/12/22 04/12/22 Range/Units 08:01 08:01 RBC 3.19 L (3.80-5.40) m/uL Hgb 10.5 L (11.4-16.0) gm/dL Hct 32.3 L (34.0-46.0) % MCV 101.3 H (80.0-100.0) fL Neutrophils # 8.0 H (1.3-7.7) k/uL Glucose 117 H (74-99) mg/dL Calcium 8.3 L (8.4-10.2) mg/dL Alkaline Phosphatase 150 H (38-126) U/L Total Protein 6.1 L (6.3-8.2) g/dL H & H 04/12/22 Range/Units 08:01 Hgb 10.5 L (11.4-16.0) gm/dL Hct 32.3 L (34.0-46.0) % Coagulation 04/12/22 Range/Units 08:01 INR 1.0 (<1.2) Result Diagrams: 04/12/22 08:01 04/12/22 08:01 Assessment and Plan (1) Closed fracture of right proximal humerus Current Visit: Yes Status: Acute Code(s): S42.201A - UNSP FRACTURE OF UPPER END OF RIGHT HUMERUS, INIT SNOMED Code(s): 10669646 (2) Facial contusion Current Visit: Yes Status: Acute Code(s): S00.83XA - CONTUSION OF OTHER PART OF HEAD, INITIAL ENCOUNTER SNOMED Code(s): 903649264 (3) Fall Current Visit: Yes Status: Acute Code(s): W19.XXXA - UNSPECIFIED FALL, INITIAL ENCOUNTER SNOMED Code(s): 8050063 (4) Subcapital fracture of right femur Current Visit: Yes Status: Acute Code(s): S72.011A - UNSP INTRACAPSULAR FRACTURE OF RIGHT FEMUR, INIT FOR CLOS FX SNOMED Code(s): 639478522 (5) Ovarian cancer Current Visit: No Status: Acute Code(s): C56.9 - MALIGNANT NEOPLASM OF UNSPECIFIED OVARY SNOMED Code(s): 506975912 Plan: The clinical and x-ray findings were discussed with the patient.. The case was discussed at length with Dr. Marci Gates who was hot wound spring production supervisor and Dr. Rodriges, who may fix the hip later this afternoon. The patient will undergo a right hip hemiarthroplasty of right hip either this afternoon or tomorrow. She will be nothing by mouth at this time. Continue bedrest. Continue pain control. A CT of the right shoulder was ordered to further evaluate for dislocation of the humeral head. Continue in arm sling. We will continue to follow patient closely and make further recommendations as needed
--- NOTE | 2022-04-12 11:18 | XR ---
EXAMINATION TYPE: XR Hip Complete RT DATE OF EXAM: 04/12/2022 CLINICAL HISTORY: Known hip fracture. Abnormal x-ray. TECHNIQUE: AP and frogleg views of the right hip are obtained. COMPARISON: Pelvic x-ray earlier today.. FINDINGS: There is slightly impacted displaced subcapital fracture right proximal femur redemonstrat ed. No hip joint dislocation. Surgical clips overlie the right pelvis. IMPRESSION: As above. No significant change from prior.
--- NOTE | 2022-04-12 11:25 | P.HPIM ---
History of Present Illness H&P Date: 04/12/22 Chief Complaint: fall 71 y/o female with a past medical history of rheumatoid arthritis and ovarian cancer s/p chemo, last dose was last june who presented to the ER via EMS after sustaining a fall down 5-6 stairs at home. She think she just misstepped. Does not recall any loss of consciousness or passing out. No dizziness, shortness of breath, chest pain or any other symptoms prior to passing out. Her only complaint is feeling generally weak which has been over the past several months. She has been under a lot of stress lately, her sister 2 weeks ago. She is currently on maintenance niraparib for ovarian cancer. She also just received steroid IM injection embrel for rheumatoid arthritis this past Friday.. 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 At baseline she is able to walk around 6-7 blocks, after that she has to stop due to worsening weakness. Denied chest pain or shortness of breath. X-rays in the ER reveal a right femoral neck fracture and a proximal humerus fracture. CT of the head, neck, was negatives. and orbit reveal no fractures or bleed. CT facial showed right periorbital soft tissue hematoma extending towards the right cheek. Chest x-ray, EKG and labs were unremarkable. Review of Systems Complete review of system performed, pertinent positives per HPI, otherwise negative Past Medical History Past Medical History: Rheumatoid Arthritis (RA) Additional Past Medical History / Comment(s): ARTHRITIC LUNG RT SIDE. neuropathy. ovarian cancer History of Any Multi-Drug Resistant Organisms: None Reported Past Surgical History: Appendectomy, Heart Catheterization, Hernia Repair, Hysterectomy, Tonsillectomy Additional Past Surgical History / Comment(s): RT HAND JOINT REPLACED/THORACENTESIS 2008/RT FOOT SURG/BUNIONECTOMY Past Anesthesia/Blood Transfusion Reactions: No Reported Reaction Past Psychological History: Anxiety Smoking Status: Former smoker Past Alcohol Use History: Occasional Past Drug Use History: None Reported - Past Family History Father Family Medical History: Myocardial Infarction ([place]) Additional Family Medical History / Comment(s): . Mother Family Medical History: Cancer Additional Family Medical History / Comment(s): pancreatic cancer Sister(s) Family Medical History: Cancer Additional Family Medical History / Comment(s): lung cancer Medications and Allergies Home Medications Medication Instructions Recorded Confirmed Type ALPRAZolam [Xanax] 0.25 mg PO BID 09/14/13 04/12/22 History DULoxetine HCL [Cymbalta] 30 mg PO DAILY 11/01/21 04/12/22 History Gabapentin [Neurontin] 400 mg PO TID 11/01/21 04/12/22 History Acetaminophen Tab [Tylenol Tab] 500 - 1,000 mg PO Q6HR PRN 04/12/22 04/12/22 History Niraparib Tosylate [Zejula] 100 mg PO DIRECTED 04/12/22 04/12/22 History Allergies Allergy/AdvReac Type Severity Reaction Status Date / Time adhesive tape Allergy bruise,torn Verified 04/12/22 10:53 skin codeine Allergy Unknown Verified 04/12/22 10:53 egg Allergy Unknown Verified 04/12/22 10:53 propoxyphene napsylate Allergy Unknown Verified 04/12/22 10:53 [From Darvocet-N 100] bandaid Allergy bruise, Uncoded 04/12/22 06:19 torn skin Physical Exam Vitals: Vital Signs Temp Pulse Resp BP Pulse Ox 04/12/22 08:00 88 18 143/81 95 04/12/22 06:09 96.8 F L 58 L 18 160/77 97 Intake and Output 04/11/22 04/12/22 04/12/22 22:59 06:59 14:59 Other: Weight 56.699 kg Constitutional: No acute distress, conversant, pleasant Eyes: Right facial bruises. Anicteric sclerae, moist conjunctiva, no lid-lag, PERRLA, ENMT: Oropharynx clear, no erythema, exudates Neck: Supple, FROM, no masses, or JVD, No carotid bruits, No thyromegaly Lungs: Clear to auscultation, Clear to percussion, Normal respiratory effort, no accessory muscle use Cardiovascular: Heart regular in rate and rhythm, No murmurs, gallops, or rubs, No peripheral edema Abdominal: Soft, Nontender, no guarding, rebound or rigidity, Normoactive bowel sounds, No hepatomegaly, No splenomegaly, No palpable mass Skin: Bruise over the right shoulder and the right hip. Normal temperature, tone, texture, turgor, no induration, No subcutaneous nodules, No rash, lesions, No ulcers Extremities: No digital cyanosis, No clubbing, Pedal pulses intact and symmetrical, Radial pulses intact and symmetrical, No calf tenderness Psychiatric: Alert and oriented to person, place and time, appropriate affect, intact judgement Neuro: Muscles Strength 5/5 in all 4 extremities, Sensation to light touch grossly present throughout, Cranial nerves II-XII grossly intact, no focal sensory deficits Results CBC & Chem 7: 04/12/22 08:01 04/12/22 08:01 Labs: Abnormal Lab Results - Last 24 Hours (Table) 04/12/22 04/12/22 Range/Units 08:01 08:01 RBC 3.19 L (3.80-5.40) m/uL Hgb 10.5 L (11.4-16.0) gm/dL Hct 32.3 L (34.0-46.0) % MCV 101.3 H (80.0-100.0) fL Neutrophils # 8.0 H (1.3-7.7) k/uL Glucose 117 H (74-99) mg/dL Calcium 8.3 L (8.4-10.2) mg/dL Alkaline Phosphatase 150 H (38-126) U/L Total Protein 6.1 L (6.3-8.2) g/dL Assessment and Plan Plan: Right hip fracture and right humeral fracture Management per orthopedic Patient will go to OR soon Pain control with IV opiates Preoperative clearance Patient is low risk for this surgical procedure, she has no history of heart or lung disease. EKG and chest x-ray reviewed. History of rheumatoid arthritis History of ovarian cancer Stable Resume meds Admit to inpatient, expected length of stay more than 2 midnights
[2022-04-12 11:29] LABS: Appearance,Urine Clear (Clear); Bilirubin,Urine Negative (Negative); Blood,Urine Negative (Negative); Color,Urine Light Yellow; Glucose,Urine (UA) Negative (Negative); Ketones,Urine Negative (Negative); Leukocyte Esterase,Urine Negative (Negative); Nitrite,Urine Negative (Negative); PH, Urine 6.5 (5.0-8.0); Protein,Urine Negative (Negative); Specific Gravity,Urine 1.015 (1.001-1.035); Urobilinogen,Urine <2.0 mg/dL (<2.0)
[2022-04-12] MEDS ORDERED: ROPIVACAINE/EPI/CLONIDINE/KET 50 ML SYRINGE MISCELLANE PRN (11:30)
[2022-04-12] MEDS ORDERED: TRANEXAMIC ACID 1,000 MG in SODIUM CHLORIDE 0.9% 100 ML IVPB ONE ×4 (11:30)
[2022-04-12] MEDS ORDERED: LACTATED RINGERS 1,000 ML IV ONE (12:48)
[2022-04-12] MEDS ORDERED: ONDANSETRON 4 MG/2 ML VIAL IVP ONE (13:30)
[2022-04-12] MEDS ORDERED: DEXAMETHASONE SOD PHOSPHATE 4 MG/ML 1 ML VIAL IVP ONE (13:30)
[2022-04-12] MEDS ORDERED: ePHEDrine 50 MG/ML 1 ML VIAL ONE (14:29)
[2022-04-12] MEDS ORDERED: TRANEXAMIC ACID IN NACL,ISO-OS 1,000 MG/100 ML BAG ONE (14:29)
[2022-04-12] MEDS ORDERED: LIDOCAINE 2% INJ 20 MG/ML (2 ML VIAL) ONE (14:29)
[2022-04-12] MEDS ORDERED: PROPOFOL 10 MG/ML 20 ML VIAL IV ONE ×2 (14:29)
[2022-04-12] MEDS ORDERED: SUCCINYLCHOLINE CHLORIDE 200 MG/10 ML VIAL IV ONE (14:29)
[2022-04-12] MEDS ORDERED: ROCURONIUM 10 MG/ML (5 ML VIAL) IV ONE (14:29)
[2022-04-12] MEDS ORDERED: GLYCOPYRROLATE 0.2 MG/ML 2 ML VIAL ONE (14:29)
[2022-04-12] MEDS ORDERED: MIDAZOLAM 2 MG/2 ML VIAL ONE (14:29)
[2022-04-12] MEDS ORDERED: HYDROcodone/APAP 5-325MG 1 EACH TAB PO PRN (17:16)
--- NOTE | 2022-04-12 17:17 | FL ---
Intraoperative/procedural fluoroscopic services were provided. Total fluoroscopy time is 56 seconds w ith a total of 6 submitted images to PACS. Please see the operative/procedural note for further detai ls.
--- NOTE | 2022-04-12 17:20 | P.OP ---
Date of Procedure: 04/12/22 Preoperative Diagnosis: 1. Displaced right subcapital femoral neck fracture 2. Displaced right proximal humerus fracture 3. Rheumatoid arthritis on Enbrel 4. Ovarian cancer on chemotherapy Postoperative Diagnosis: Same Procedure(s) Performed: Right direct anterior total hip arthroplasty Implants: 1. Polo Trident II Acetabular Cup, Size #48 2. Polo Accolade C Size #3 Femoral Stem, Standard Offset 3. Dual Mobility OD 38 mm, ID 22.2 mm, +0 neck Anesthesia: ANGELINA, devon Surgeon: Anish Rodriges Certified Surgical Technologist #1: Joann Alvarado Estimated Blood Loss (ml): 200 IV fluids (ml): 800 Urine output (ml): 600 Pathology: other (Femoral head sent to pathology) Condition: stable Disposition: PACU Indications for Procedure: The patient is a very pleasant 71-year-old female with a medical history significant for ovarian cancer receiving chemotherapy and rheumatoid arthritis on Enbrel who sustained a ground-level fall resulting in a displaced right subcapital femoral neck fracture and a right proximal humerus fracture. She was brought to our emergency department. She is previously seen Dr. Peralta and requested care from our group. She was admitted under the care of my partner Dr. Marci Gates. I was asked to help manage her right hip fracture which I agreed to. I met with the patient and her family preoperatively both in the emergency department and in the preoperative holding area to discuss treatment options. We discussed that I would be managing her right hip fracture and Dr. Gates would be managing her right proximal humerus fracture. We discussed that she would need surgery for her right hip. We discussed both hemiarthroplasty and total hip replacement. We discussed the pros and cons of both. Despite having ovarian cancer and being on chemotherapy the patient is in a relatively good state of health and is active outside the home. She is a community ambulator without assisted device. Based on this we both agreed to proceed with a total hip replacement. The patient and her family acknowledged the risk profile of a total hip replacement in the setting of a displaced femoral neck fracture. They also understand that the recovery is different than a total hip replacement for arthritis. I had a long discussion with the patient and her family on the potential risks and complications of an elective total hip replacement through a direct anterior approach. Risks discussed include, but are certainly not limited to, risks from anesthesia, superficial infection requiring local wound care or antibiotics, deep rosy-prosthetic joint infection and the treatment required to eradicate infection, intraoperative fracture, postoperative periprosthetic fracture, damage to local blood vessels or nerves particularly the lateral femoral cutaneo us nerve, delayed wound healing requiring local wound care or possibly surgical debridement, hip dislocation, leg length discrepancy, soft tissue irritation around the total hip implant such as iliopsoas tendinitis or trochanteric bursitis, wear and osteolysis from the implants, squeaking or audible noises, groin pain, thigh pain, heterotopic ossification, stiffness, aseptic loosening of the implants, dissatisfaction with surgical outcome, need for revision surgery, DVT, PE, swelling of the operative extremity, acute coronary event, stroke, failure to thrive, and possibly loss of life or limb. The patient understands that while these are the most common complications after an elective hip replacement there are certainly other less common complications possible. They were given ample time to ask questions regarding the potential complications of a hip replacement. Following our discussion the patient provided their verbal and written consent to go forward with an elective total hip replacement. Operative Findings: Acute displaced subcapital femoral neck fracture with a large hemarthrosis Description of Procedure: The patient was identified in the preoperative holding area and the correct hip was marked with my initials. I reviewed the procedure and consent with the patient. All of their questions were answered. The patient was then brought back into the operating room by anesthesia. While on the [facility] anesthesia was administered by the anesthesia team. Preoperative antibiotics and tranexamic acid were also given. After the patient was under anesthesia I examined their ankles to determine their preoperative leg length discrepancy. The skin over the anterior aspect of the hip was shaved to remove hair over the site of planned incision. Both feet and ankles were padded with webril and boots for the [place] were applied. The patient was then carefully transferred onto the [place] table. A perineal post was immediately placed. The left arm were placed on arm holders and were well-padded and the right arm was draped across the chest due to her proximal humerus fracture. Both boots were secured to the spars on the [place] table. The patient was positioned so that the pelvis was centered over the post. Nonsterile drapes were applied. A timeout was performed identifying the correct patient, operative extremity, and procedure. At this point fluoroscopy was brought in to take preoperative images of the pelvis and operative hip. A metallic bar was used to create a bi-ischial line for use as a reference to leg length adjustments during the procedure. Global offset was also measured on both the operative and nonoperative leg. Fluoroscopy was then brought out and a pre-scrub using a chlorhexidine scrub brush was performed. The operative limb was then prepped and draped in the standard sterile fashion. An anterior longitudinal incision was made lateral and distal to the ASIS. The skin and subcutaneous tissues were incised sharply. The underlying tensor fascia was identified and incised in its midportion. The fascia was dissected free from the underlying muscle and the muscle belly was retracted. A blunt tipped cobra retractor was placed over the superior neck under the muscle fibers of the gluteus minimus. The deep enveloping fascia of the tensor was incised. The anterior leash of vessels were then identified and cauterized. The fascia between the rectus and the capsule was then incised and the pre-capsular fat was excised. A second Cobra was placed inferior to the neck. The interval between the rectus and iliocapsularis and the hip capsule was developed and a retractor was placed carefully over the anterior rim of the acetabulum. A T-shaped anterior capsulotomy was performed. The superior capsular leaflet was left in place in the inferior capsular flap was excised. The Cobra retractors were placed intracapsularly. We then made a femoral neck osteotomy according to preoperative and intraoperative templating and confirmed the level of the osteotomy using fluoroscopic imaging. The femoral head was removed, passed off to the back table, and sized. The superior capsular flap was excised. Retractors were placed circumferentially exposing the acetabulum. We then circumferentially debrided the acetabulum free of labrum and osteophytes. The pulvinar was removed to fully visualize the cotyloid fossa. We then sequentially reamed to achieve peripheral fit and excellent bleeding subchondral bone. The socket was thoroughly irrigated. The acetabular component was impacted into the appropriate position using fluoroscopy to guide version, inclination, and depth of insertion. An excellent press-fit was achieved and final position was confirmed using fluoroscopy. The press fit was augmented with bony cancellus dome screws. The liner was then impacted into the socket. Attention was then turned to the femur. The remnant dorsal lateral capsule was excised. The short external rotators were visible and protected. A bone hook was used to confirm appropriate translation of the trochanter away from the acetabulum. The leg was then extended and adducted and the bone hook was used to elevate the femur for broaching. On inspection of the patient's proximal femur, they appeared to have poor bone quality so I elected to proceed with cemented fixation of the femoral component. A box osteotome and blunt tipped canal sound was then utilized to gain access to the femoral canal. We then sequentially broached the femur in appropriate anteversion until torsional stability was achieved and the implant was felt to have reached the appropriate size to allow trialing. The neck cut was brought flush to the trial broach with a calcar planar. A trial neck and head were then placed onto the broach and the hip was atraumatically reduced under direct visualization. External rotation to 90 was performed to assess stability. Fluoroscopy was brought in. An AP and lateral fluoroscopic image of the proximal femur was obtained to assess position and fill of the trial broach. An AP of the pelvis was then obtained and matched to the preoperative image taken. A bi-ischial bar was then placed and measurements were taken to assess changes in length and offset. The hip was then carefully dislocated, the proximal femur was exposed, and the trial imp lants were removed. The proximal femur was then prepared for cementing. The canal was thoroughly irrigated with pulsatile lavage to remove blood and marrow contents. A cement restrictor was placed to a depth just distal to the tip of the final implant. Epinephrine-soaked gauze was then packed into the proximal femur. 2 bags of cement were then mixed using a centrifuge and placed into a cement gun. Anesthesia was notified that cementing was about to commence to make sure the patient was appropriately ventilated and hydrated. Once the cement had reached appropriate consistency, the cement gun was used to fill the canal in a retrograde fashion starting at the restrictor. Cement was then pressurized into the canal with a blue tipped instructional interventionist. The stem was then carefully introduced into the cement taking care to guide the implant into appropriate version. The stem was held in position until the cement had fully set. All extra cement was removed while the cement was hardening. The trunnion was cleansed and the final head was tapped into place to engage the Prakash taper. The acetabulum was irrigated and visualized to be free of debris. The hip was carefully reduced. Stability was checked clinically with external rotation to 90 and there was no evidence of instability. Final fluoroscopic images were taken. The wound was then thoroughly irrigated and soaked with a dilute Betadine rinse for 3 minutes. 3 L of sterile saline was irrigated through the wound using pulsatile lavage. Local anesthetic cocktail was injected into the soft tissues around the surgical field. A deep drain was placed. The wound was then closed in layers. A sterile dressing was placed over the surgical incision and drain site. The drapes were taken down and the patient was carefully transferred off of the [place] table. Following removal of the boots the leg lengths felt acceptable. The patient was then taken to recovery room having tolerated the procedure well. Joann Alvarado PA-C was required as a skilled sociology research assistant for patient positioning, surgical exposure, retraction, placement of implants, and closure of the surgical wound. PLAN: The patient can weight-bear as tolerated on the operative extremity. 2 doses of postoperative antibiotics. DVT prophylaxis with Xarelto 10 mg daily based on preoperative risk stratification particularly her history of cancer and concern about her own sister passing away from a DVT and PE recently. Physical therapy for gait training. Discontinue drain postoperative day #1 if output is less than 100 mL per shift. I will defer management of her proximal humerus fracture to Dr. Gates.
[2022-04-12] MEDS: HYDROmorphone 0.5 MG/0.5 ML SYRINGE IVP PRN ×2 (17:35→23:46)
[2022-04-12] MEDS: SENNOSIDES-DOCUSATE SODIUM 1 EACH TAB PO SCH (20:53)
[2022-04-12] MEDS: GABAPENTIN 400 MG CAP PO SCH (20:54)
[2022-04-12] MEDS: ALPRAZolam 0.25 MG TAB PO SCH (21:01)
[2022-04-12] MEDS: HYDROcodone/APAP 5-325MG 1 EACH TAB PO PRN (21:16)
[2022-04-13] MEDS: HYDROcodone/APAP 5-325MG 1 EACH TAB PO PRN ×3 (02:56→21:06)
[2022-04-13] MEDS: HYDROmorphone 0.5 MG/0.5 ML SYRINGE IVP PRN ×3 (05:31→16:17)
[2022-04-13 06:44] LABS: Basophils % (A) 0 %; Eosinophils % (A) 0 %; HCT 24.3 % (34.0-46.0); Hypochromasia Marked; Lymphocytes # (A) 1.3 k/uL (1.0-4.8); Lymphocytes % (A) 14 %; MCH 31.8 pg (25.0-35.0); MCHC 30.2 g/dL (31.0-37.0); MCV 105.5 fL (80.0-100.0); Macrocytosis Moderate; Mean Platelet Volume 8.7; Monocytes # (A) 0.7 k/uL (0-1.0); Monocytes % (A) 7 %; Neutrophils # (A) 7.1 k/uL (1.3-7.7); Neutrophils % (A) 77 %; Platelet Count 198 k/uL (150-450); RDW 15.8 % (11.5-15.5); WBC 9.2 k/uL (3.8-10.6)
[2022-04-13 06:53] LABS: HGB 7.3 gm/dL (11.4-16.0)
[2022-04-13 07:07] LABS: African American GFR (CKD) 59 (>60 ml/min/1.73 sqM); Anion Gap 7 mmol/L; Blood Urea Nitrogen 22 mg/dL (7-17); Calcium 7.7 mg/dL (8.4-10.2); Carbon Dioxide 22 mmol/L (22-30); Chloride 108 mmol/L (98-107); Glucose 119 mg/dL (74-99); Magnesium 1.7 mg/dL (1.6-2.3); Non-African American GFR(CKD) 52 (>60 ml/min/1.73 sqM); Potassium 4.7 mmol/L (3.5-5.1); Sodium 137 mmol/L (137-145)
[2022-04-13] MEDS: DULoxetine HCL 30 MG CAPSULE.DR PO SCH (07:55)
[2022-04-13] MEDS: RIVAROXABAN 10 MG TAB PO SCH (07:55)
[2022-04-13] MEDS: GABAPENTIN 400 MG CAP PO SCH ×3 (07:55→21:30)
[2022-04-13] MEDS: ALPRAZolam 0.25 MG TAB PO SCH ×2 (07:55→21:07)
--- NOTE | 2022-04-13 09:40 | P.PN ---
Subjective Progress Note Date: 04/13/22 Principal diagnosis: Right proximal humerus fracture. Right femoral neck fracture. Status post total hip arthroplasty. The patient is a very pleasant 71-year-old female with a medical history significant for ovarian cancer receiving chemotherapy and rheumatoid arthritis on Enbrel who sustained a ground-level fall resulting in a displaced right subcapital femoral neck fracture and a right proximal humerus fracture. She was brought to our emergency department. She is previously seen Dr. Peralta and requested care from our group. She was admitted under the care of Dr. Marci Gates. Dr. Rodriges took the patient to surgery last evening for total hip arthroplasty of the right hip to treat her femoral neck fracture. Patient's hemoglobin is down to 7.3 today. Latest blood pressure was 92/55. The patient denies any dizziness or lightheadedness. She has not yet been up with physical therapy. She has been afebrile. She denies nausea vomiting or diarrhea. Richter catheter is in place. Objective - Vital Signs Vital signs: Vital Signs Temp 98.0 F 04/13/22 02:19 Pulse 82 04/13/22 02:19 Resp 16 04/13/22 02:19 BP 92/55 04/13/22 02:19 Pulse Ox 90 L 04/13/22 09:00 FiO2 Intake & Output 04/12/22 04/13/22 04/13/22 18:59 06:59 18:59 Intake Total 800 Output Total 800 310 30 Balance 0 -310 -30 Weight 56.699 kg Intake: IV 800 Output: Drainage 110 30 Right Hip 110 30 Urine 600 200 Estimated Blood Loss 200 Other: Voiding Method Indwelling Catheter - Exam This is a pleasant 71-year-old female in no acute distress. She is alert and oriented at this time. She does have slight confusion as to recent events. Exam of the head and neck reveals dried blood to the right temporal region. There is no other head or neck deformity. She has full cervical spine motion without difficulty or pain. Exam of the upper extremities reveals mild soft tissue swelling and ecchymosis to the right shoulder. She has fairly good elbow, wrist and finger motion without difficulty or pain. Neurovascular status to the upper extremity is intact. Exam of the lower extremities reveals that her right hip dressing is clean, dry and intact. There is mild swelling to the anterolateral lateral hip. Hemovac is in place. She has full foot and ankle motion without difficulty or pain. Neurovascular status to the lower extremities is intact. - Labs CBC & Chem 7: 04/13/22 06:26 04/13/22 06:26 Labs: Abnormal Lab Results - Last 24 Hours (Table) 04/13/22 04/13/22 Range/Units 06:26 06:26 RBC 2.30 L (3.80-5.40) m/uL Hgb 7.3 L D (11.4-16.0) gm/dL Hct 24.3 L (34.0-46.0) % MCV 105.5 H (80.0-100.0) fL MCHC 30.2 L (31.0-37.0) g/dL RDW 15.8 H (11.5-15.5) % Chloride 108 H (98-107) mmol/L BUN 22 H (7-17) mg/dL Creatinine 1.08 H (0.52-1.04) mg/dL Glucose 119 H (74-99) mg/dL Calcium 7.7 L (8.4-10.2) mg/dL Assessment and Plan (1) Closed fracture of right proximal humerus Current Visit: Yes Status: Acute Code(s): S42.201A - UNSP FRACTURE OF UPPER END OF RIGHT HUMERUS, INIT SNOMED Code(s): 03117290 (2) Facial contusion Current Visit: Yes Status: Acute Code(s): S00.83XA - CONTUSION OF OTHER PART OF HEAD, INITIAL ENCOUNTER SNOMED Code(s): 098225852 (3) Fall Current Visit: Yes Status: Acute Code(s): W19.XXXA - UNSPECIFIED FALL, INITIAL ENCOUNTER SNOMED Code(s): 5071811 (4) Subcapital fracture of right femur Current Visit: Yes Status: Acute Code(s): S72.011A - UNSP INTRACAPSULAR FRACTURE OF RIGHT FEMUR, INIT FOR CLOS FX SNOMED Code(s): 168207676 (5) Ovarian cancer Current Visit: No Status: Acute Code(s): C56.9 - MALIGNANT NEOPLASM OF UNSP ECIFIED OVARY SNOMED Code(s): 628507565 (6) Thrombocytopenia Current Visit: No Status: Acute Code(s): D69.6 - THROMBOCYTOPENIA, UNSPECIFIED SNOMED Code(s): 256862469 Plan: The clinical findings are discussed with the patient and her . We are doing a stat redraw of the hemoglobin and reassessing her vitals. We are waiting physical therapy today. Her Hemovac may be pulled today. Richter catheter be pulled from an orthopedic standpoint today. Continue care. She will likely be a candidate for inpatient rehab.
[2022-04-13 10:47] LABS: Basophils % (A) 0 %; Eosinophils % (A) 0 %; HCT 24.7 % (34.0-46.0); HGB 7.6 gm/dL (11.4-16.0); Hypochromasia Marked; Lymphocytes # (A) 2.1 k/uL (1.0-4.8); Lymphocytes % (A) 18 %; MCH 32.6 pg (25.0-35.0); MCHC 30.6 g/dL (31.0-37.0); MCV 106.4 fL (80.0-100.0); Macrocytosis Marked; Mean Platelet Volume 8.4; Monocytes # (A) 0.8 k/uL (0-1.0); Monocytes % (A) 7 %; Neutrophils # (A) 8.4 k/uL (1.3-7.7); Neutrophils % (A) 72 %; Platelet Count 212 k/uL (150-450); RBC 2.32 m/uL (3.80-5.40); RDW 15.9 % (11.5-15.5); WBC 11.6 k/uL (3.8-10.6)
--- NOTE | 2022-04-13 12:57 | P.PN ---
Subjective Progress Note Date: 04/13/22 Principal diagnosis: fall Patient just had a walk with physical therapy, currently she is resting in bed. She walked using a cane. States that her pain is currently controlled. No fevers or chills. No chest pain or shortness of breath. Objective - Vital Signs Vital signs: Vital Signs Temp 98.0 F 04/13/22 02:19 Pulse 82 04/13/22 07:55 Resp 16 04/13/22 07:55 BP 92/55 04/13/22 02:19 Pulse Ox 90 L 04/13/22 09:00 FiO2 Intake & Output 04/12/22 04/13/22 04/13/22 18:59 06:59 18:59 Intake Total 800 Output Total 800 310 30 Balance 0 -310 -30 Weight 56.699 kg Intake: IV 800 Output: Drainage 110 30 Right Hip 110 30 Urine 600 200 Estimated Blood Loss 200 Other: Voiding Method Indwelling Catheter Indwelling Catheter - Exam Constitutional: No acute distress, conversant, pleasant Eyes: Right facial bruises. Anicteric sclerae, moist conjunctiva, no lid-lag, PERRLA, ENMT: Oropharynx clear, no erythema, exudates Neck: Supple, FROM, no masses, or JVD, No carotid bruits, No thyromegaly Lungs: Clear to auscultation, Clear to percussion, Normal respiratory effort, no accessory muscle use Cardiovascular: Heart regular in rate and rhythm, No murmurs, gallops, or rubs, No peripheral edema Abdominal: Soft, Nontender, no guarding, rebound or rigidity, Normoactive bowel sounds, No hepatomegaly, No splenomegaly, No palpable mass Skin: Bruise over the right shoulder and the right hip. Normal temperature, tone, texture, turgor, no induration, No subcutaneous nodules, No rash, lesions, No ulcers Extremities: No digital cyanosis, No clubbing, Pedal pulses intact and symmetric al, Radial pulses intact and symmetrical, No calf tenderness Psychiatric: Alert and oriented to person, place and time, appropriate affect, intact judgement Neuro: Muscles Strength 5/5 in all 4 extremities, Sensation to light touch grossly present throughout, Cranial nerves II-XII grossly intact, no focal sensory deficits - Labs CBC & Chem 7: 04/13/22 09:47 04/13/22 06:26 Labs: Abnormal Lab Results - Last 24 Hours (Table) 04/13/22 04/13/22 04/13/22 Range/Units 06:26 06:26 09:47 WBC 11.6 H (3.8-10.6) k/uL RBC 2.30 L 2.32 L (3.80-5.40) m/uL Hgb 7.3 L D 7.6 L (11.4-16.0) gm/dL Hct 24.3 L 24.7 L (34.0-46.0) % MCV 105.5 H 106.4 H (80.0-100.0) fL MCHC 30.2 L 30.6 L (31.0-37.0) g/dL RDW 15.8 H 15.9 H (11.5-15.5) % Neutrophils # 8.4 H (1.3-7.7) k/uL Macrocytosis Marked A Chloride 108 H (98-107) mmol/L BUN 22 H (7-17) mg/dL Creatinine 1.08 H (0.52-1.04) mg/dL Glucose 119 H (74-99) mg/dL Calcium 7.7 L (8.4-10.2) mg/dL Assessment and Plan Plan: Right hip fracture status post right direct anterior total hip arthroplasty Right humeral fracture Management per orthopedic Pain control with IV opiates Acute on chronic anemia, likely secondary to blood loss during surgery Monitor hemoglobin, no need for transfusion currently. History of rheumatoid arthritis on enbrel History of ovarian cancer in remission s/p resection and chemo Stable Resume meds DVT prophylaxis: Per surgery, would delay initiation sec to anemia Anticipated discharge: Rehab on Friday or Friday
[2022-04-13] MEDS: SODIUM CHLORIDE 0.9% 1,000 ML IV SCH ×2 (21:07→21:11)
[2022-04-13] MEDS: SENNOSIDES-DOCUSATE SODIUM 1 EACH TAB PO SCH (21:07)
[2022-04-14] MEDS: HYDROmorphone 0.5 MG/0.5 ML SYRINGE IVP PRN (02:05)
[2022-04-14] MEDS: HYDROcodone/APAP 5-325MG 1 EACH TAB PO PRN ×2 (07:51→20:16)
[2022-04-14] MEDS: GABAPENTIN 400 MG CAP PO SCH ×3 (07:51→22:57)
[2022-04-14] MEDS: ALPRAZolam 0.25 MG TAB PO SCH ×2 (07:51→22:57)
[2022-04-14] MEDS: RIVAROXABAN 10 MG TAB PO SCH (07:51)
[2022-04-14] MEDS: DULoxetine HCL 30 MG CAPSULE.DR PO SCH (07:51)
[2022-04-14] MEDS: SODIUM CHLORIDE 0.9% 1,000 ML IV SCH ×2 (10:10→23:33)
--- NOTE | 2022-04-14 10:20 | P.PN ---
Subjective Progress Note Date: 04/14/22 Principal diagnosis: Right proximal humerus fracture. Right femoral neck fracture. Status post total hip arthroplasty. The patient is a very pleasant 71-year-old female with a medical history significant for ovarian cancer receiving chemotherapy and rheumatoid arthritis on Enbrel who sustained a ground-level fall resulting in a displaced right subcapital femoral neck fracture and a right proximal humerus fracture. She was brought to our emergency department. She is previously seen Dr. Peralta and requested care from our group. She was admitted under the care of Dr. Marci Gates. Dr. Rodriges took the patient to surgery last evening for total hip arthroplasty of the right hip to treat her femoral neck fracture. Patient's hemoglobin is down to 7.3 today. Latest blood pressure was 92/55. The patient denies any dizziness or lightheadedness. She has not yet been up with physical therapy. She has been afebrile. She denies nausea vomiting or diarrhea. Richter catheter is in place. 04/14/2022: Today is postoperative day #2 status post total right hip arthroplasty for femoral neck fracture. She also has a displaced humeral neck fracture of the right shoulder. She has no new complaints or concerns today. She reports no nausea, vomiting or diarrhea. She's been afebrile. She denies any lightheadedness or dizziness. Morning labs are pending. Her pulse ox d ropped 80 last night on room air. She was placed on oxygen per nasal cannula. Current pulse ox is 94. Vital signs are otherwise stable. Her latest hemoglobin is 7.6. Her [id number]-ula is present at bedside. She did work with physical therapy yesterday and walked a few feet with assistance. She has not yet been up today. Objective - Vital Signs Vital signs: Vital Signs Temp 99.4 F 04/14/22 08:34 Pulse 106 H 04/14/22 08:34 Resp 18 04/14/22 08:34 BP 118/73 04/14/22 08:34 Pulse Ox 94 L 04/14/22 08:51 FiO2 Intake & Output 04/13/22 04/14/22 04/14/22 18:59 06:59 18:59 Intake Total 900 Output Total 380 1900 Balance 520 -1900 Intake: Intake, IV Titration 900 Amount Sodium Chloride 0.9% 1, 900 000 ml @ 75 mls/hr IV . [id number] [facility] Rx#:[id number] Output: Drainage 30 Right Hip 30 Urine 350 1900 Other: Voiding Method Indwelling Catheter Indwelling Catheter Indwelling Catheter - Exam This is a pleasant 71-year-old female in no acute distress. She is alert and oriented at this time. She does have slight confusion as to recent events. Exam of the head and neck reveals dried blood to the right temporal region. There is no other head or neck deformity. She has full cervical spine motion without difficulty or pain. Exam of the upper extremities reveals mild soft tissue swelling and ecchymosis to the right shoulder. She has fairly good elbow, wrist and finger motion without difficulty or pain. Neurovascular status to the upper extremity is intact. Exam of the lower extremities reveals that her right hip dressing is clean, dry and intact. There is mild swelling to the anterolateral lateral hip. No drainage on the dressing from the Hemovac site. She has full foot and ankle motion without difficulty or pain. Neurovascular status to the lower extremities is intact. - Labs CBC & Chem 7: 04/13/22 09:47 04/13/22 06:26 Labs: Abnormal Lab Results - Last 24 Hours (Table) 04/13/22 Range/Units 09:47 WBC 11.6 H (3.8-10.6) k/uL RBC 2.32 L (3.80-5.40) m/uL Hgb 7.6 L (11.4-16.0) gm/dL Hct 24.7 L (34.0-46.0) % MCV 106.4 H (80.0-100.0) fL MCHC 30.6 L (31.0-37.0) g/dL RDW 15.9 H (11.5-15.5) % Neutrophils # 8.4 H (1.3-7.7) k/uL Macrocytosis Marked A Assessment and Plan (1) Closed fracture of right proximal humerus Current Visit: Yes Status: Acute Code(s): S42.201A - UNSP FRACTURE OF UPPER END OF RIGHT HUMERUS, INIT SNOMED Code(s): 80322680 (2) Facial contusion Current Visit: Yes Status: Acute Code(s): S00.83XA - CONTUSION OF OTHER PART OF HEAD, INITIAL ENCOUNTER SNOMED Code(s): 345566724 (3) Fall Current Visit: Yes Status: Acute Code(s): W19.XXXA - UNSPECIFIED FALL, INITI AL ENCOUNTER SNOMED Code(s): 5188389 (4) Subcapital fracture of right femur Current Visit: Yes Status: Acute Code(s): S72.011A - UNSP INTRACAPSULAR FRACTURE OF RIGHT FEMUR, INIT FOR CLOS FX SNOMED Code(s): 714902398 (5) Ovarian cancer Current Visit: No Status: Acute Code(s): C56.9 - MALIGNANT NEOPLASM OF UNSPECIFIED OVARY SNOMED Code(s): 293534205 (6) Thrombocytopenia Current Visit: No Status: Acute Code(s): D69.6 - THROMBOCYTOPENIA, UNSPECIFIED SNOMED Code(s): 352626936 Plan: The clinical findings are discussed with the patient and her [id number]. Richter catheter be pulled from an orthopedic standpoint today. Continue care. We're planning transfer to [facility] for inpatient rehab when cleared medically and placement is arranged.
[2022-04-14 11:05] LABS: Anion Gap 9.3 mmol/L (10.00-18.00); BUN/Creat Ratio 15.37 Ratio (12.00-20.00); Calcium 7.9 mg/dL (8.7-10.3); Carbon Dioxide 23.9 mmol/L (20.0-27.5); Magnesium 1.9 mg/dL (1.5-2.4); Potassium 4.1 mmol/L (3.5-5.5)
[2022-04-14 11:44] LABS: Basophils # (A) 0.03 X 10*3/uL (0.00-0.10); Basophils % (A) 0.3 %; Eosinophils # (A) 0.15 X 10*3/uL (0.04-0.35); Eosinophils % (A) 1.4 %; Immature Grans, Automated 0.6 %; Lymphocytes # (A) 3.04 X 10*3/uL (0.90-5.00); Lymphocytes % (A) 28.9 %; Monocytes # (A) 0.91 X 10*3/uL (0.20-1.00); Monocytes % (A) 8.7 %; NRBC Per 100 WBC 0 /100 WBCS (0.0-0.0); Neutrophils # (A) 6.33 X 10*3/uL (1.80-7.70); Neutrophils % (A) 60.1 %
[2022-04-14 11:45] LABS: Elliptocytes 2+; HCT 22.4 % (37.2-46.3); HGB 6.8 g/dL (12.0-15.0); Hypochromasia (M) 2+; MCH 32.2 pg (27.0-32.0); MCHC 30.4 g/dL (32.0-37.0); MCV 106.2 fL (80.0-97.0); Macrocytosis (M) 2+; Mean Platelet Volume 10.9 fL (9.5-12.2); Platelet Count 176 X 10*3/uL (140-440); RBC 2.11 X 10*6/uL (4.10-5.20); RDW 15.9 % (11.5-14.5); Toxic Vacuolation 2+; WBC 10.52 X 10*3/uL (4.50-10.00)
--- NOTE | 2022-04-14 12:26 | P.PN ---
Subjective Progress Note Date: 04/14/22 Principal diagnosis: fall She has no new complaints or concerns today. States pain is under control. Worked with therapy yesterday. She reports no nausea, vomiting or diarrhea. She's been afebrile. She denies any lightheadedness or dizziness Objective - Vital Signs Vital signs: Vital Signs Temp 99.4 F 04/14/22 08:34 Pulse 106 H 04/14/22 08:34 Resp 18 04/14/22 08:34 BP 118/73 04/14/22 08:34 Pulse Ox 94 L 04/14/22 08:51 FiO2 Intake & Output 04/13/22 04/14/22 04/14/22 18:59 06:59 18:59 Intake Total 900 Output Total 380 1900 Balance 520 -1900 Intake: Intake, IV Titration 900 Amount Sodium Chloride 0.9% 1, 900 000 ml @ 75 mls/hr IV . [id number] [facility] Rx#:[id number] Output: Drainage 30 Right Hip 30 Urine 350 1900 Other: Voiding Method Indwelling Catheter Indwelling Catheter Indwelling Catheter - Exam Constitutional: No acute distress, conversant, pleasant Eyes: Right facial bruises. Anicteric sclerae, moist conjunctiva, no lid-lag, PERRLA, ENMT: Oropharynx clear, no erythema, exudates Neck: Supple, FROM, no masses, or JVD, No carotid bruits, No thyromegaly Lungs: Clear to auscultation, Clear to percussion, Normal respiratory effort, no accessory muscle use Cardiovascular: Heart regular in rate and rhythm, No murmurs, gallops, or rubs, No peripheral edema Abdominal: Soft, Nontender, no guarding, rebound or rigidity, Normoactive bowel sounds, No hepatomegaly, No splenomegaly, No palpable mass Skin: Bruise over the right shoulder and the right hip. Normal temperature, tone, texture, turgor, no induration, No subcutaneous nodules, No rash, lesions, No ulcers Extremities: No digital cyanosis, No clubbing, Pedal pulses intact and symmetr ical, Radial pulses intact and symmetrical, No calf tenderness Psychiatric: Alert and oriented to person, place and time, appropriate affect, intact judgement Neuro: Muscles Strength 5/5 in all 4 extremities, Sensation to light touch grossly present throughout, Cranial nerves II-XII grossly intact, no focal sensory deficits - Labs CBC & Chem 7: 04/14/22 07:24 04/14/22 07:24 Labs: Abnormal Lab Results - Last 24 Hours (Table) 04/12/22 04/13/22 04/14/22 Range/Units 10:54 09:47 07:24 WBC 10.52 H (4.50-10.00) X 10*3/uL RBC 2.11 L (4.10-5.20) X 10*6/uL Hgb 6.8 L* (12.0-15.0) g/dL Hct 22.4 L (37.2-46.3) % MCV 106.2 H (80.0-97.0) fL MCH 32.2 H (27.0-32.0) pg MCHC 30.4 L (32.0-37.0) g/dL RDW 15.9 H (11.5-14.5) % Immature Gran # 0.06 H (0.00-0.04) X 10*3/uL Neutrophils # 8.4 H (1.3-7.7) k/uL Anion Gap (10.00-18.00) mmol/L Calcium (8.7-10.3) mg/dL Crossmatch See Detail 04/14/22 Range/Units 07:24 WBC (4.50-10.00) X 10*3/uL RBC (4.10-5.20) X 10*6/uL Hgb (12.0-15.0) g/dL Hct (37.2-46.3) % MCV (80.0-97.0) fL MCH (27.0-32.0) pg MCHC (32.0-37.0) g/dL RDW (11.5-14.5) % Immature Gran # (0.00-0.04) X 10*3/uL Neutrophils # (1.3-7.7) k/uL Anion Gap 9.30 L (10.00-18.00) mmol/L Calcium 7.9 L (8.7-10.3) mg/dL Crossmatch Assessment and Plan Plan: Right hip fracture status post right direct anterior total hip arthroplasty Right humeral fracture Management per orthopedic Pain control with IV opiates PT/OT Acute on chronic anemia, likely secondary to blood loss during surgery Will transfuse 1 unit of PRBC Continue to monitor hemoglobin. AC now contraindicated History of rheumatoid arthritis on enbrel History of ovarian cancer in remission s/p resection and chemo Stable Resume meds DVT prophylaxis: Per surgery, would delay initiation sec to anemia Anticipated discharge: Rehab on Friday or Friday
[2022-04-14] MEDS: ONDANSETRON 4 MG/2 ML VIAL IVP PRN (12:40)
[2022-04-14] MEDS: SENNOSIDES-DOCUSATE SODIUM 1 EACH TAB PO SCH (20:15)
[2022-04-15] MEDS: HYDROcodone/APAP 5-325MG 1 EACH TAB PO PRN ×3 (04:15→22:52)
--- NOTE | 2022-04-15 07:55 | P.PN ---
Subjective Progress Note Date: 04/15/22 Overall the patient is doing better this morning. She has minimal pain in her right hip. She has been up walking. Most of her complaints are noted regards to shoulder pain. She states it is difficult to get comfortable. She was transfused 1 unit yesterday and denies chest pain or shortness of breath this morning. Objective - Vital Signs Vital signs: Vital Signs Temp 98.1 F 04/15/22 02:30 Pulse 71 04/15/22 02:30 Resp 14 04/15/22 02:30 BP 106/65 04/15/22 02:30 Pulse Ox 91 L 04/15/22 02:30 FiO2 Intake & Output 04/14/22 04/15/22 04/15/22 18:59 06:59 18:59 Intake Total 310 Output Total 1350 950 Balance -1040 -950 Intake: Blood Product 310 Rc As-1 Unit 310 [id number] Output: Urine 1350 950 Other: Voiding Method Indwelling Catheter # Voids 1 - Exam The patient is sitting up at bedside eating her breakfast. She is in no apparent distress and is able to answer questions. Her upper extremity is in a sling. A focused exam of the right lower extremity was conducted. On inspection there is a clean-appearing dressing with no drainage or strike through. Her thigh and calf are soft. Femoral nerve function is intact. Motor and sensory function are intact distally in her foot. - Labs CBC & Chem 7: 04/14/22 07:24 04/14/22 07:24 Labs: Abnormal Lab Results - Last 24 Hours (Table) 04/12/22 04/14/22 04/14/22 Range/Units 10:54 07:24 07:24 WBC 10.52 H (4.50-10.00) X 10*3/uL RBC 2.11 L (4.10-5.20) X 10*6/uL Hgb 6.8 L* (12.0-15.0) g/dL Hct 22.4 L (37.2-46.3) % MCV 106.2 H (80.0-97.0) fL MCH 32.2 H (27.0-32.0) pg MCHC 30.4 L (32.0-37.0) g/dL RDW 15.9 H (11.5-14.5) % Immature Gran # 0.06 H (0.00-0.04) X 10*3/uL Anion Gap 9.30 L (10.00-18.00) mmol/L Calcium 7.9 L (8.7-10.3) mg/dL Crossmatch See Detail Assessment and Plan Assessment: Displaced right subcapital femoral neck fracture status post right direct anterior total hip replacement Displaced right proximal humerus fracture Acute blood loss anemia requiring transfusion (anemia was both pre-existing with a admission hemoglobin of 10.4 and due to surgical blood loss) Ovarian cancer on chemotherapy Rheumatoid arthritis on Enbrel Plan: In regards the patient's right hip she is doing well. She should continue to weight-bear as tolerated and mobilize as able. She'll be treated with DVT prophylaxis with Xarelto due to her history of cancer, hip fracture, and family history. Management of her shoulder per Dr. Gates. Repeat labs pending. We're working towards discharge to rehab today. If she is medically stable she is cleared to discharge to rehab from her hip standpoint.
--- NOTE | 2022-04-15 07:57 | P.DS ---
Providers Date of admission: 04/12/22 08:12 Attending physician: Marci Gates DO Consults: 04/12/22 07:43 Consult Physician Urgent Consulting Provider: Becca Rosa Reason/Comments: Medical management, surgical clearance Do you want consulting provider notified?: Yes Primary care physician: Balta Garcia MD Hospital Course: Patient is very pleasant 71-year-old female with multiple medical problems including overhang cancer and rheumatoid arthritis who sustained a ground-level fall resulting in a displaced right hip fracture and right proximal humerus fracture. She was admitted under the care of orthopedics and cleared for surgery by internal medicine. She was taken to surgery this past Friday for a total hip replacement on her right hip. Her shoulder has been managed by Dr. Gates with a sling. Postoperatively the patient did well in regards to her right hip. She received 2 doses of postoperative antibiotics. She mobilized with physical therapy. On postoperative day #2 her hemoglobin was less than 7 and required a transfusion of 1 unit. Discharge planning was arranged and she was cleared for discharge to rehab. Patient Condition at Discharge: Fair Plan - Discharge Summary Discharge Rx Participant: No New Discharge Prescriptions: New Rivaroxaban [Xarelto] 10 mg PO DAILY 30 Days #30 tab Doxycycline Monohydrate 100 mg PO BID 14 Days #28 cap No Action ALPRAZolam [Xanax] 0.25 mg PO BID Niraparib Tosylate [Zejula] 100 mg PO DAILY Gabapentin [Neurontin] 400 mg PO TID DULoxetine HCL [Cymbalta] 30 mg PO DAILY Acetaminophen Tab [Tylenol Tab] 500 - 1,000 mg PO Q6HR PRN PRN Reason: Pain Or Fever > 100.5 Zolpidem Tartrate [Zolpidem Tartrate ER] 12.5 mg PO HS Etanercept [Enbrel] 1 dose SQ DIRECTED Discharge Medication List ALPRAZolam [Xanax] 0.25 mg PO BID 09/14/13 [History] DULoxetine HCL [Cymbalta] 30 mg PO DAILY 11/01/21 [History] Gabapentin [Neurontin] 400 mg PO TID 11/01/21 [History] Acetaminophen Tab [Tylenol Tab] 500 - 1,000 mg PO Q6HR PRN 04/12/22 [History] Doxycycline Monohydrate 100 mg PO BID 14 Days #28 cap 04/12/22 [Rx] Etanercept [Enbrel] 1 dose SQ DIRECTED 04/12/22 [History] Niraparib Tosylate [Zejula] 100 mg PO DAILY 04/12/22 [History] Rivaroxaban [Xarelto] 10 mg PO DAILY 30 Days #30 tab 04/12/22 [Rx] Zolpidem Tartrate [Zolpidem Tartrate ER] 12.5 mg PO HS 04/12/22 [History] Follow up Appointment(s)/Referral(s): None,Stated [REFERRING] - 1-2 days Anish Rodriges MD [Medical Doctor] - 2 Weeks Marci Gates DO [Doctor of Osteopathic Medicine] - 1 Week Activity/Diet/Wound Care/Special Instructions: Weight bear to tolerance on right hip with a walker. Keep operative dressing in place over the right hip. May shower over dressing. Call the office if dressing becomes saturated or falls off. Take pain medications as needed. Take Xarelto as prescribed for blood clot prevention. Take antibiotics as prescribed. Follow-up in the office in two weeks at [facility] for right hip. Follow-up with Dr. Gates for further management of your shoulder. Call the office with any questions or concerns, Discharge Disposition: TRANSFER TO SNF/ECF
[2022-04-15] MEDS: ALPRAZolam 0.25 MG TAB PO SCH ×2 (08:50→21:41)
[2022-04-15] MEDS: DULoxetine HCL 30 MG CAPSULE.DR PO SCH (08:50)
[2022-04-15] MEDS: GABAPENTIN 400 MG CAP PO SCH ×3 (08:50→21:41)
--- NOTE | 2022-04-15 13:26 | P.PN ---
Subjective Progress Note Date: 04/15/22 Hospital course: Patient is a very pleasant 71-year-old female with a past medical history of rheumatoid arthritis, neuropathy and ovarian cancer status post hysterectomy and chemotherapy currently on Zejula. She presented to the emergency department on 04/12/22 status post falling down approximately 5-6 steps. She underwent full evaluation in the emergency department and was found to have an acute displaced impacted subcapital fracture of the right proximal femur and an acute comminuted displaced fracture of the right proximal humerus. Patient was admitted under orthopedic surgery team and we were consulted for medical management throughout her hospitalization. Imaging: X-ray right shoulder showing osseous structures demineralized with acute comminuted displaced fracture to the surgical neck of the right proximal humerus with impaction and medial displacement of the large distal fracture fragment and smaller fracture fragments involving the greater tuberosity are present. X-ray pelvis revealing acute displaced impacted subcapital fracture right proximal femur. CT face revealed a small to moderate sized acute right periorbital soft tissue hematoma extending over the right cheek, negative for acute displaced facial bone fractures and negative for acute intercranial hemorrhage. CT cervical spine negative for acute fracture or dislocation. Physical exam: Patient was seen and fully evaluated at bedside. Vital signs reviewed and stable. General: Nontoxic, no distress and appears stated age. Derm: Skin warm and dry, normal coloration for ethnicity. Head: Normocephalic and symmetric. Bruising right lower jaw and right side of face and right periorbital region. Eyes: EOMs intact, no lid lag, and anicteric sclera Mouth: no lip lesions, mucus membranes moist Cardiovascular: regular rate and rhythm with normal S1S2, no murmur, positive posterior tibial pulses bilaterally, and cap refill < 2 seconds. Lungs: Respirations even, regular, and unlabored on room air. Lungs CTA bilaterally, no rhonchi, no rales, no wheezing, and no accessory muscle usage. Abdominal: soft, nontender to palpation, no guarding, no appreciable organomegaly Ext: Movement and sensation intact in all 4 extremities. Right upper extremity in sling. No gross muscle atrophy, no edema, no contractures Neuro: Speech clear, face symmetrical and CN II-XII grossly intact with no noted focal neuro deficits Psych: Alert and oriented to person, place, time, and situation. Appropriate and pleasant affect. Assessment and Plan of Care: Acute blood loss anemia, greater than expected surgical blood loss Acute on chronic anemia of chronic disease -Baseline hemoglobin 10.0 -Hemoglobin dropped to 6.8 resulting in need for transfusion of 1 unit PRBCs. -Repeat CBC Mechanical fall Acute displaced impacted subcapital fracture of right proximal femur Acute comminuted displaced fracture of right proximal humerus Status post right total hip arthroplasty -Fall precautions. -Management per primary admitting orthopedic surgery team including DVT prophylaxis, pain management, weightbearing, and PT/OT. Neuropathy Continue daily medication regimen with gabapentin. Rheumatoid arthritis -Patient last received Enbrel 04/12/22, scheduled to take again 04/19/22, rehab facility will not except patient on this medication. This was discussed with patient by telephonic nurse case manager and patient in agreement to hold medication until discharged from ECF. History of ovarian cancer status post hysterectomy and chemotherapy -Currently on Zejula, rehab facility will not except patient on this medication. This was discussed with patient by telephonic nurse case manager and patient in agreement to hold medication until discharged from ECF. Thank you for allowing us to participate in the care of this pleasant patient. Do not hesitate to contact us with questions. Someone can be reached from the [facility] hospitalist group all hours of the day at [phone] or via [employer]. Objective - Vital Signs Vital signs: Vital Signs Temp 98.1 F 04/15/22 08:02 Pulse 73 04/15/22 08:02 Resp 17 04/15/22 08:02 BP 115/69 04/15/22 08:02 Pulse Ox 90 L 04/15/22 08:02 FiO2 Intake & Output 04/14/22 04/15/22 04/15/22 18:59 06:59 18:59 Intake Total 310 Output Total 1350 950 Balance -1040 -950 Intake: Blood Product 310 Rc As-1 Unit 310 [id number] Output: Urine 1350 950 Other: Voiding Method Indwelling Catheter # Voids 1 - Labs CBC & Chem 7: 04/14/22 07:24 04/14/22 07:24 Labs: Abnormal Lab Results - Last 24 Hours (Table) 04/12/22 04/14/22 04/14/22 Range/Units 10:54 07:24 07:24 WBC 10.52 H (4.50-10.00) X 10*3/uL RBC 2.11 L (4.10-5.20) X 10*6/uL Hgb 6.8 L* (12.0-15.0) g/dL Hct 22.4 L (37.2-46.3) % MCV 106.2 H (80.0-97.0) fL MCH 32.2 H (27.0-32.0) pg MCHC 30.4 L (32.0-37.0) g/dL RDW 15.9 H (11.5-14.5) % Immature Gran # 0.06 H (0.00-0.04) X 10*3/uL Anion Gap 9.30 L (10.00-18.00) mmol/L Calcium 7.9 L (8.7-10.3) mg/dL Crossmatch See Detail
[2022-04-15] MEDS: SODIUM CHLORIDE 0.9% 1,000 ML IV SCH (14:22)
[2022-04-15 15:17] LABS: Anisocytosis Slight; HCT 27.7 % (34.0-46.0); Hypochromasia Moderate; MCH 32.3 pg (25.0-35.0); MCHC 32.9 g/dL (31.0-37.0); Macrocytosis Slight; Mean Platelet Volume 8.2; Platelet Count 176 k/uL (150-450); RBC 2.82 m/uL (3.80-5.40); RDW 16.8 % (11.5-15.5); WBC 8.9 k/uL (3.8-10.6)
[2022-04-15 15:43] LABS: HGB 9.1 gm/dL (11.4-16.0); MCV 98.2 fL (80.0-100.0)
[2022-04-15] MEDS: SENNOSIDES-DOCUSATE SODIUM 1 EACH TAB PO SCH (21:41)
[2022-04-16] MEDS: SODIUM CHLORIDE 0.9% 1,000 ML IV SCH (06:56)
[2022-04-16] MEDS: ALPRAZolam 0.25 MG TAB PO SCH (08:06)
[2022-04-16 08:07] VITALS: BP 107/68; PULSE 63; RESP 16; TEMP 98.5
[2022-04-16] MEDS: DULoxetine HCL 30 MG CAPSULE.DR PO SCH (08:07)
[2022-04-16] MEDS: GABAPENTIN 400 MG CAP PO SCH (08:07)
[2022-04-16] MEDS: HYDROcodone/APAP 5-325MG 1 EACH TAB PO PRN (08:07)
--- NOTE | 2022-04-16 12:00 | P.PN ---
Subjective Progress Note Date: 04/16/22 Hospital course: Patient is a very pleasant 71-year-old female with a past medical history of rheumatoid arthritis, neuropathy and ovarian cancer status post hysterectomy and chemotherapy currently on Zejula. She presented to the emergency department on 04/12/22 status post falling down approximately 5-6 steps. She underwent full evaluation in the emergency department and was found to have an acute displaced impacted subcapital fracture of the right proximal femur and an acute comminuted displaced fracture of the right proximal humerus. Patient was admitted under orthopedic surgery team and we were consulted for medical management throughout her hospitalization. Patient is currently on Zejula and Enbrel, rehab facility will not accept patient on this medication. This was discussed with patient by case reviewer and patient is in agreement to hold medication until discharged from [facility] and may then resume as previously prescribed at that time. Ambien and Xanax also to be held at this time while patient is on opioids for pain management. May resume once no longer on pain medication as pt is already on high dose of Gabapentin and being discharged to rehab on [place] for pain managment. Imaging: X-ray right shoulder showing osseous structures demineralized with acute comminuted displaced fracture to the surgical neck of the right proximal humerus with impaction and medial displacement of the large distal fracture fragment and smaller fracture fragments involving the greater tuberosity are present. X-ray pelvis revealing acute displaced impacted subcapital fracture right pro ximal femur. CT face revealed a small to moderate sized acute right periorbital soft tissue hematoma extending over the right cheek, negative for acute displaced facial bone fractures and negative for acute intercranial hemorrhage. CT cervical spine negative for acute fracture or dislocation. Physical exam: Patient was seen and fully evaluated at bedside. She was resting comfortably and denied having any new complaints or concerns. Patient denies having any numbness/tingling/weakness in her right hand in movement and sensation remain intact to distal right upper extremity. Right arm remains in sling. Patient reports postoperative pain to right hip is currently controlled. Repeat hemoglobin was 9.1 and stable. Patient is medically stable for discharge to rehab once cleared by primary admitting orthopedic surgery team. Vital signs reviewed and stable. General: Nontoxic, no distress and appears stated age. Derm: Skin warm and dry, normal coloration for ethnicity. Head: Normocephalic and symmetric. Bruising right lower jaw and right side of face and right periorbital region. Eyes: EOMs intact, no lid lag, and anicteric sclera Mouth: no lip lesions, mucus membranes moist Cardiovascular: regular rate and rhythm with normal S1S2, no murmur, positive posterior tibial pulses bilaterally, and cap refill < 2 seconds. Lungs: Respirations even, regular, and unlabored on room air. Lungs CTA bilaterally, no rhonchi, no rales, no wheezing, and no accessory muscle usage. Abdominal: soft, nontender to palpation, no guarding, no appreciable organomegaly Ext: Movement and sensation intact in all 4 extremities. Right upper extremity in sling. No gross muscle atrophy, no edema, no contractures Neuro: Speech clear, face symmetrical and CN II-XII grossly intact with no noted focal neuro deficits Psych: Alert and oriented to person, place, time, and situation. Appropriate and pleasant affect. Assessment and Plan of Care: Acute blood loss anemia, greater than expected surgical blood loss Acute on chronic anemia of chronic disease -Hemoglobin stable at 9.1 with baseline hemoglobin of 10. Mechanical fall Acute displaced impacted subcapital fracture of right proximal femur Acute comminuted displaced fracture of right proximal humerus Status post right total hip arthroplasty -Fall precautions. -Management per primary admitting orthopedic surgery team including DVT prophylaxis, pain management, weightbearing, and PT/OT. Neuropathy Continue daily medication regimen with gabapentin. Rheumatoid arthritis -Patient last received Enbrel 04/12/22, scheduled to take again 04/19/22, rehab facility will not except patient on this medication. This was discussed with patient by case reviewer and patient in agreement to hold medication until discharged from ECF. History of ovarian cancer status post hysterectomy and chemotherapy -Currently on Zejula, rehab facility will not except patient on this medication. This was discussed with patient by case reviewer and patient in agreement to hold medication until discharged from ECF. Thank you for allowing us to participate in the care of this pleasant patient. Do not hesitate to contact us with questions. Someone can be reached from the [facility] hospitalist group all hours of the day at [phone] or via [employer]. Objective - Vital Signs Vital signs: Vital Signs Temp 98.5 F 04/16/22 08:00 Pulse 63 04/16/22 08:00 Resp 16 04/16/22 08:00 BP 107/68 04/16/22 08:00 Pulse Ox 92 L 04/16/22 08:00 FiO2 Intake & Output 04/15/22 04/16/22 04/16/22 18:59 06:59 18:59 Intake Total 900 Balance 900 Intake: Intake, IV Titration 900 Amount Sodium Chloride 0.9% 1, 900 000 ml @ 75 mls/hr IV . [id number] [facility] Rx#:[id number] Other: Voiding Method Toilet # Voids 5 2 - Labs CBC & Chem 7: 04/15/22 14:53 04/14/22 07:24 Labs: Abnormal Lab Results - Last 24 Hours (Table) 04/15/22 Range/Units 14:53 RBC 2.82 L (3.80-5.40) m/uL Hgb 9.1 L D (11.4-16.0) gm/dL Hct 27.7 L (34.0-46.0) % RDW 16.8 H (11.5-15.5) %
[2022-04-16] MEDS ORDERED: PANTOPRAZOLE 40 MG/10 ML VIAL IVP ONE (13:30)
--- NOTE | 2022-04-17 16:23 | P.PN ---
Progress Note - Text Progress Note Date: 04/16/22 This patient is a 71- year old female who is status-post right total hip arthroplasty for right femoral neck fracture on 04/12/22. She also sustained a right proximal humerus fracture that is being managed non-operatively by Dr. Gates. Patient is examined bedside this morning. She states her pain is well controlled. No new complaints. Patient is discharged to rehab today pending medical clearance today. On examination, patient is sitting up in bed in no apparent distress. She is alert and orientated x3. On inspection of the right hip, there is clean, dry, intact Opsite dressing in place. Motor and sensory function intact RLE. RLE warm and well perfused. Calf nontender. Right upper extremity immobilized in sling. Motor and sensory function intact RUE. RUE warm and well perfused, radial pulse palpable. Patient should follow-up in the office in two weeks with Dr. Rodriges for further management of her right hip. She should follow-up in the office in one week with Dr. Gates for further management of her right shoulder.
== END 2022-04-16 14:16 | DRG 522 ==
LOC: EC 06:04 → 4SSUR 08:12
PROVIDERS: ADMIT Orthopaedic Surgery Hand Surgery; ATTEND Orthopaedic Surgery Hand Surgery
PROC: 0SR90J9 Replacement of Right Hip Joint with Synthetic Substitute, Cemented, Open Approach (ICD-10-PCS; principal; 2022-04-15)
DX: S72.011A Unspecified intracapsular fracture of right femur, initial encounter for closed fracture (principal); S42.201A Unspecified fracture of upper end of right humerus, initial encounter for closed fracture; C56.9 Malignant neoplasm of unspecified ovary; D62 Acute posthemorrhagic anemia; F41.9 Anxiety disorder, unspecified; D69.6 Thrombocytopenia, unspecified; M06.9 Rheumatoid arthritis, unspecified; M19.90 Unspecified osteoarthritis, unspecified site; S00.83XA Contusion of other part of head, initial encounter; S51.811A Laceration without foreign body of right forearm, initial encounter; W10.9XXA Fall (on) (from) unspecified stairs and steps, initial encounter; Z79.899 Other long term (current) drug therapy; Z80.0 Family history of malignant neoplasm of digestive organs; Z80.1 Family history of malignant neoplasm of trachea, bronchus and lung; Z87.891 Personal history of nicotine dependence; Z92.21 Personal history of antineoplastic chemotherapy; Z90.710 Acquired absence of both cervix and uterus; G62.9 Polyneuropathy, unspecified; Z63.4 Disappearance and death of family member; Z88.5 Allergy status to narcotic agent; Z88.1 Allergy status to other antibiotic agents; Z91.012 Allergy to eggs; Z96.698 Presence of other orthopedic joint implants; Z28.82 Immunization not carried out because of caregiver refusal
CPT/HCPCS: 36415; 70450; 70486; 71045; 72125; 72170; 73501; 73502; 80048; 80053; 81003; 83735; 85025; 85027; 85610; 85730; 86850; 86900; 86901; 86920; 90715; 93005; 94760

== ENCOUNTER → 2022-05-27 | Outpatient (CLI) | payer MEDICARE, BC ==
--- NOTE | 2022-05-27 12:06 | XR ---
EXAMINATION TYPE: XR skull limited, XR facial bones limited DATE OF EXAM: 05/27/2022 COMPARISON: CT brain April 22, 2022 HISTORY: Recent fall injury with atypical right-sided skull and facial pain. Open and closed mouth view along with both lateral projections of the facial bones. TECHNIQUE: Frontal and lateral views of the skull. FINDINGS: No suspicious linear lucency to suggest acute skull fracture. The mandible appears intact. Nasal bones are intact. No suspicious air fluid levels in the frontal or maxillary sinuses. Overlying soft tissue is unremarkable. Several cavitary fillings and crowns noted in the bilateral peripheral teeth. IMPRESSION: No acute displaced facial bone fracture. No acute skull fracture.
== END | disposition home or self-care (01) ==
LOC: RADXRYALE 09:43
PROVIDERS: ATTEND Physician Assistant
DX: G50.1 Atypical facial pain (principal); Z91.81 History of falling
CPT/HCPCS: 70140; 70250

== ENCOUNTER → 2022-09-26 | Outpatient (CLI) | payer MEDICARE, BC ==
--- NOTE | 2022-09-26 19:53 | XR ---
EXAMINATION TYPE: XR thoracic spine 3 views complete, XR lumbosacral spine 5 views DATE OF EXAM: 09/26/2022 Comparison: None Clinical History: 71-year-old female [id number], [id number] DDD, THOR PAIN Findings: Thoracic spine: Very mild endplate spondylosis mid to lower thoracic spine. Vertebral body heights are preserved. Sli ght leftward tracheal shift probably positional. 12 rib-bearing thoracic vertebral bodies. All pedicl es are visualized. Lumbar spine: Mild multilevel degenerative disc disease. Hypertrophic facet arthropathy lower lumbar spine. Degener ative trace grade 1 retrolisthesis L3-L4. Remaining alignment is maintained. Vertebral body heights a re preserved. 5 lumbar type vertebral bodies. No pars interarticularis defect. Impression: 1. Thoracic spine: Mild endplate spondylosis mid to lower thoracic spine. No vertebral compression co llapse or malalignment. 2. Lumbar spine: Hypertrophic facet arthropathy lower lumbar spine. Mild multilevel degenerative disc disease. Trace degenerative grade 1 retrolisthesis L3-L4.
== END | disposition home or self-care (01) ==
LOC: RADXRYALE 14:19
PROVIDERS: ATTEND Physician Assistant
DX: M51.36 Other intervertebral disc degeneration, lumbar region (principal); M43.16 Spondylolisthesis, lumbar region; M47.814 Spondylosis without myelopathy or radiculopathy, thoracic region; M47.816 Spondylosis without myelopathy or radiculopathy, lumbar region
CPT/HCPCS: 72072; 72110

== ENCOUNTER → 2022-12-11 | Outpatient (CLI) | payer MEDICARE, BC ==
--- NOTE | 2022-12-11 11:33 | CTL ---
EXAMINATION TYPE: CT Low Dose Lung DATE OF EXAM ORDERED: 12/11/2022 COMPARISON: Chest abdomen pelvis CT 09/07/2021 HISTORY: . Low Dose CT Lung Screening CT DLP: [address] CTDI: 2.6 mGy IV CONTRAST USED: None. SCREENING VISIT: First visit COMPARISON: None. TECHNIQUE: Low dose computed tomography scan was performed through the chest at 1 millimeter thick se ctions and reconstructed images in the coronal plane at [address] DIAGNOSTIC QUALITY: Satisfactory FINDINGS: LUNG NODULES: Stable 5.5 mm pulmonary nodule left upper lobe image 32 sequence 8. No additional nodul e seen with certainty. Chronic pleural parenchymal density right lower lobe unchanged from prior stud y. LUNGS: COPD: Severity: Mild Fibrosis: Severity:None Lymph nodes: None Other findings: None RIGHT PLEURAL SPACE: Effusion: None Calcification: None Thickening: None Pneumothorax: None LEFT PLEURAL SPACE: Effusion: None Calcification: None Thickening: None Pneumothorax: None HEART: Heart Size: Mildly enlarged Coronary calcification: Mild Pericardial effusion: None OTHER FINDINGS: Upper abdomen: No significant abnormality Bony thorax: Degenerative changes Supraclavicular region: No significant abnormalityOther: No significant abnormalityI IMPRESSION: 1. Stable nodule left upper lobe. 2. Stable chronic pleural-parenchymal right lower lobe density. FOLLOW UP CT CHEST RECOMMENDATION: Follow-up screening in one year CT LUNG RAD: LUNG RAD CATEGORY benign appearance and behavior category 2.
== END | disposition home or self-care (01) ==
LOC: RADCTMAIN 10:57
PROVIDERS: ATTEND Family Medicine
DX: Z12.2 Encounter for screening for malignant neoplasm of respiratory organs (principal); J98.4 Other disorders of lung; R91.1 Solitary pulmonary nodule; F17.210 Nicotine dependence, cigarettes, uncomplicated
CPT/HCPCS: 71271

== ENCOUNTER → 2022-12-30 | Outpatient (CLI) | payer MEDICARE, BC ==
--- NOTE | 2022-12-31 10:45 | MM ---
Reason for Exam: Screening (asymptomatic). Last mammogram was performed 1 year(s) and 2 month(s) ago. Patient History: Menarche at age 16. First Full-Term at age 19. Hysterectomy at age 44. Postmenopausal. Ovarian cancer, age 70. Previous chemotherapy at age 70. Currently using Estrogen, beginning at age 51 for 5 years, 9 months. 10/06/2015, US discontinued breast bx RT on the right side. Maternal grandmother had breast cancer, age 65. Niece had ovarian cancer, age 30. Sister had breast cancer, age 40. Sister had breast cancer at or over age 50. Risk Values: Tessie 5 year model risk: 6.5%. NCI Lifetime model risk: 15.3%. Prior Study Comparison: 09/16/2014 Bilateral Screening Mammogram, [facility]. 09/22/2015 Bilateral Screening Mammogram, [facility]. 09/23/2016 Bilateral Diagnostic Mammogram, [facility]. 11/20/2017 Bilateral Screening Mammogram, [facility]. 12/01/2018 Bilateral Screening Mammogram, [facility]. 01/17/2020 Bilateral Diagnostic Mammogram, [facility]. 10/24/2021 Bilateral MG 3D screening mammo w/cad, [facility]. Tissue Density: The breast tissue is heterogeneously dense. This may lower the sensitivity of mammography. Findings: Analyzed By CAD. There is no suspicious group of microcalcifications or new suspicious mass in either breast. Overall Assessment: Benign, BI-RAD 2 Management: Screening Mammogram of both breasts in 1 year. . Patient should continue monthly self-breast exams. A clinical breast exam by your physician is recommended on an annual basis. This exam should not preclude additional follow-up of suspicious palpable abnormalities. Note on Tessie scores and lifetime risk: 1. A Tessie score greater than 3% is considered moderate risk. If this is the case, consider specialist referral to assess eligibility for a risk reducing agent. 2. If overall lifetime risk for the development of breast cancer is 20% or higher, the patient may qualify for future screening with alternating mammogram and breast MRI. Electronically signed and approved by: Wesley Newman M.D. Radiologis
== END | disposition home or self-care (01) ==
LOC: RADMAMWWP 11:24
PROVIDERS: ATTEND Family Medicine
DX: Z12.31 Encounter for screening mammogram for malignant neoplasm of breast (principal); Z78.0 Asymptomatic menopausal state; Z80.3 Family history of malignant neoplasm of breast
CPT/HCPCS: 77063; 77067

== ENCOUNTER → 2022-12-31 | Outpatient (CLI) | payer MEDICARE, BC ==
--- NOTE | 2022-12-31 14:22 | CT ---
EXAMINATION TYPE: CT shoulder RT wo con CT DLP: 332 mGycm, Automated exposure control for dose reduction was used. DATE OF EXAM: 12/31/2022 1:05 PM COMPARISON: CT 04/12/2022 CLINICAL INDICATION:Female, 72 years old with history of S42.211D UNSP DISP FX OF SURG NK OF R HUMER; PHH, Rt shoulder fx. Arthrex protocol TECHNIQUE: Axial images were obtained of the Additional coronal and sagittal reformatted images and soft tissue and bone window were obtained for review. 3-D reconstruction was created on a separate w orkstation. Contrast used: None Oral contrast used: None FINDINGS: There is a proximal right shoulder fracture white with nonunion. There is shortening of the right humerus with the shaft high riding humeral head. There is incomplete callus formation noted al grazyna the lateral aspect with curvilinear lucency suggesting incomplete mobilization. No additional fra ctures visualized. Stable right upper lobe 4 mm pulmonary nodule. Mild emphysema changes noted. IMPRESSION: 1. Right proximal humerus fracture with nonunion and mild callus formation with irregular lucency th rough it suggesting complete immobilization. Mild shortening of the humerus into the humeral head. 2. Mild emphysema changes.
== END | disposition home or self-care (01) ==
LOC: RADCTMAIN 12:19
PROVIDERS: ATTEND Orthopaedic Surgery Hand Surgery
DX: S42.211D Unspecified displaced fracture of surgical neck of right humerus, subsequent encounter for fracture with routine healing (principal); J43.9 Emphysema, unspecified

== ENCOUNTER → 2023-01-01 | Outpatient (CLI) | payer MEDICARE, BC | END | disposition home or self-care (01) | LOC: LABWHC1 12:13 | PROVIDERS: ATTEND Orthopaedic Surgery | DX: Z47.1 Aftercare following joint replacement surgery (principal); M25.551 Pain in right hip; S72.001D Fracture of unspecified part of neck of right femur, subsequent encounter for closed fracture with routine healing; M06.851 Other specified rheumatoid arthritis, right hip; M70.61 Trochanteric bursitis, right hip; M79.7 Fibromyalgia; F17.200 Nicotine dependence, unspecified, uncomplicated; X58.XXXD Exposure to other specified factors, subsequent encounter | CPT/HCPCS: 36415; 85379; 85652; 86140 ==

== ENCOUNTER → 2023-01-20 | Outpatient (CLI) | payer MEDICARE, BC ==
[2023-01-20 11:14] LABS: INR 0.9 (<1.2); Partial Thromboplastin Time 23.9 sec (22.0-30.0); Prothrombin Time 9.8 sec (9.0-12.0)
[2023-01-20 11:34] LABS: Appearance,Urine Clear (Clear); Bacteria,Urine Moderate /hpf; Bilirubin,Urine Negative (Negative); Blood,Urine Trace (Negative); Color,Urine Colorless; Glucose,Urine (UA) Negative (Negative); Hyaline Casts,Urine 3 /lpf (0-2); Ketones,Urine Negative (Negative); Leukocyte Esterase,Urine Negative (Negative); Mucus,Urine Rare /hpf; Nitrite,Urine Negative (Negative); PH, Urine 5.5 (5.0-8.0); Protein,Urine Negative (Negative); Specific Gravity,Urine 1.013 (1.001-1.035); Squamous Epithelial Cell,Urine 3 /hpf (0-4); Urobilinogen,Urine <2.0 mg/dL (<2.0); WBC,Urine 1 /hpf (0-5)
[2023-01-20 15:20] LABS: HCT 39.7 % (37.2-46.3); HGB 12.8 d/dL (12.0-15.0); MCH 35.9 pg (27.0-32.0); MCHC 32.2 d/dL (32.0-37.0); MCV 111.2 FL (80.0-97.0); Mean Platelet Volume 10.2 FL (9.5-12.2); NRBC Per 100 WBC 0 X 10*3/uL (0.00-0.01); Platelet Count 270 X 10*3/uL (140-440); RBC 3.57 X 10*6/uL (4.10-5.20); RDW 12.9 % (11.5-14.5)
[2023-01-20 15:29] LABS: BUN/Creat Ratio 17.67 Ratio (12.00-20.00); Blood Urea Nitrogen 21.2 mg/dL (9.0-27.0); Chloride 106 mmol/L (96-109); Glucose 101 mg/dL (70-110); Potassium 4.2 mmol/L (3.5-5.5); Sodium 141 mmol/L (135-145)
[2023-01-20 15:30] LABS: ALT 7 U/L (8-44); AST 22 U/L (13-35); Albumin 4.4 d/dL (3.8-4.9); Albumin/Globulin Ratio 2.44 Ratio (1.60-3.17); Alkaline Phosphatase 120 U/L (41-126); Calcium 9.4 mg/dL (8.7-10.3); Carbon Dioxide 24.6 mmol/L (21.6-31.8); Globulin 1.8 d/dL (1.6-3.3); Total Bilirubin <0.2 mg/dL (0.3-1.2); Total Protein 6.2 d/dL (6.2-8.2)
== END | disposition home or self-care (01) ==
LOC: LABPAT 09:18
PROVIDERS: ATTEND Orthopaedic Surgery Hand Surgery
DX: Z01.812 Encounter for preprocedural laboratory examination (principal); M19.011 Primary osteoarthritis, right shoulder
CPT/HCPCS: 80053; 81001; 85027; 85610; 85730; 87070; 93005

== ENCOUNTER 2023-02-10 10:49 | Day surgery (SDC) | payer MEDICARE, BC ==
[2023-02-04 11:20] VITALS: BMI 20.9
[~2023-02-10 10:49] MED LIST changes: +GABAPENTIN 300 MG CAP PO PRN; -HEPARIN SODIUM,PORCINE/PF 5,000 UNIT/0.5 ML SYRINGE SQ PRN; +LIDOCAINE 1% (10MG/ML) FOR IV START INTRADERMA PRN; +MELOXICAM 7.5 MG TAB PO PRN; +METOCLOPRAMIDE 5 MG/ML 2 ML VIAL IVP PRN; +MIDAZOLAM 2 MG/2 ML VIAL IV PRN; +ONDANSETRON 4 MG/2 ML VIAL IVP PRN; +TRANEXAMIC 1,000 MG/100ML-NACL 1,000 MG in SALINE 1 100ML.BAG IVPB PRN; +fentaNYL (PF) 50 MCG/ML 2 ML AMP IVP PRN
[2023-02-10] MEDS ORDERED: MIDAZOLAM 2 MG/2 ML VIAL IVP ONE (11:44)
[2023-02-10] MEDS ORDERED: fentaNYL (PF) 50 MCG/1 ML VIAL IVP ONE (11:45)
--- NOTE | 2023-02-10 12:05 | P.ANPRN ---
Procedure Note - Anesthesia - Nerve Block Performed Right Interscalene Single Time Out Performed: Yes Date of Procedure: 02/10/23 Procedure Start Time: 11:44 Procedure Stop Time: 11:50 Location of Patient: PreOp Indication: Acute Post-Operative Pain, Requested by Surgeon Specifically requested for management of pain by DrSteve: Marci Gates Sedation Type: Sedate with meaningful contact maintained Preparation: Sterile Prep Position: Supine Needle Types: Pajunk Needle Gauge: 21 Ultrasound used to observe medication spread: Yes Injectate: 0.5% Ropivacaine (see comment for volume) (25 ml + 4mg Dexamethason) Blood Aspirated: No Pain Paresthesia on Injection Noted: No Resistance on Injection: Normal Image Stored and Saved: Yes Events: Uneventful and Well Tolerated
[2023-02-10] MEDS ORDERED: MIDAZOLAM 2 MG/2 ML VIAL ONE (12:40)
[2023-02-10] MEDS ORDERED: DEXAMETHASONE SOD PHOSPHATE 4 MG/ML 1 ML VIAL ONE (12:40)
[2023-02-10] MEDS ORDERED: NEOSTIGMINE 1 MG/ML 10 ML VIAL ONE (12:40)
[2023-02-10] MEDS ORDERED: PROPOFOL 10 MG/ML 20 ML VIAL IV ONE (12:40)
[2023-02-10] MEDS ORDERED: GLYCOPYRROLATE 0.2 MG/ML 2 ML VIAL ONE (12:40)
[2023-02-10] MEDS ORDERED: ROCURONIUM 10 MG/ML (5 ML VIAL) IV ONE (12:40)
[2023-02-10] MEDS ORDERED: fentaNYL (PF) 50 MCG/ML 2 ML AMP ONE (12:40)
[2023-02-10] MEDS ORDERED: PHENYLEPHRINE-0.9% NACL SYG 1,000 MCG/10 ML SYRINGE ONE (12:40)
[2023-02-10] MEDS ORDERED: TRANEXAMIC 1,000 MG/100ML-NACL PREMIX BAG ONE (12:40)
[2023-02-10] MEDS ORDERED: ROPIVACAINE 5 MG/ML 30 ML VIAL ONE (12:40)
[2023-02-10] MEDS ORDERED: ceFAZolin 1,000 MG in SODIUM CHLORIDE 0.9% 1,000 ML IRRIGATION ONE (13:19)
[2023-02-10] MEDS ORDERED: LACTATED RINGERS 1,000 ML IV ONE (14:05)
[2023-02-10] MEDS ORDERED: LIDOCAINE 1%-EPI 1:100,000 50 ML VIAL SQ ONE (15:26)
[2023-02-10] MEDS ORDERED: BUPIVACAINE (PF) 0.5% 30 ML VIAL SQ ONE (15:26)
[2023-02-10] MEDS ORDERED: HYDROmorphone 0.5 MG/0.5 ML SYRINGE IVP PRN ×2 (15:32)
[2023-02-10] MEDS ORDERED: HYDROcodone/APAP 5-325MG 1 EACH TAB PO PRN (15:32)
[2023-02-10] MEDS ORDERED: ONDANSETRON 4 MG/2 ML VIAL IVP PRN (15:32)
[2023-02-10] MEDS ORDERED: SENNOSIDES-DOCUSATE SODIUM 1 EACH TAB PO PRN (15:32)
[2023-02-10] MEDS ORDERED: HYDROmorphone 0.5 MG/0.5 ML SYRINGE IVP ONE ×2 (16:24→16:38)
--- NOTE | 2023-02-10 17:17 | XR ---
EXAMINATION TYPE: XR shoulder limited RT DATE OF EXAM: 02/10/2023 5:07 PM CLINICAL INDICATION:Female, 72 years old with history of status post RSA; COMPARISON: 04/12/2022 TECHNIQUE: XR shoulder limited RT; shoulder was examined in frontal projection. FINDINGS: Post fixation changes to the right shoulder with subcutaneous gas and gas within the joint. Hardware appears intact. No evidence of new fracture. IMPRESSION: Postsurgical changes without evidence of fracture.
[2023-02-10] MEDS: HYDROcodone/APAP 5-325MG 1 EACH TAB PO PRN (21:42)
[2023-02-10] MEDS: HYDROmorphone 0.5 MG/0.5 ML SYRINGE IVP PRN (23:50)
--- NOTE | 2023-02-11 01:03 | P.CONS ---
History of Present Illness - Reason for Consult Consult date: 02/10/23 - History of Present Illness Patient is a 72-year-old female with a PMH of fibromyalgia, ovarian cancer, and rheumatoid arthritis who was admitted for an elective right shoulder reverse total arthroplasty. The patient underwent the procedure earlier today and was seen postoperatively. She reported excellent control of her pain, currently rated at a 1 out of 10 at the time of interview. She denied experiencing chest discomfort, shortness of breath, fever, chills, cough, nausea, vomiting, abdominal pain, diarrhea. Review of systems: Pertinent positives and negatives as discussed in HPI, a complete review of systems was performed and all other systems are negative. Physical examination: Vital signs reviewed General: non toxic, no distress, appears at stated age, normal weight Derm: no unusual rashes/lesions, warm Head: atraumatic, normocephalic, symmetric Eyes: EOMI, no lid lag, anicteric sclera, pupils equal round reactive to light ENT: Nose and ears atraumatic Neck: No cervical lymphadenopathy, trachea midline, supple Mouth: no lip lesion, mucus membranes moist Cardiovascular: S1S2 reg, no murmur, positive dorsalis pedis pulse bilateral, no edema Lungs: CTA bilateral, no rhonchi, no rales, no accessory muscle use Abdominal: soft, nontender to palpation, no guarding Ext: muscle strength 5 out of 5 in all 4 extremities grossly except right upper extremity due to postsurgical pain, right anterior shoulder wound VAC in place, no gross muscle atrophy, no contractures, Neuro: CN II-XI grossly intact, no gross focal neuro deficits Psych: Alert, oriented, appropriate affect Assessment: Status post right reverse shoulder total arthroplasty Chronic conditions: Ovarian cancer, rheumatoid arthritis, fibromyalgia Plan: Continue with home medications once fully reconciled including the dose of the patient's Enbrel Defer management of pain control and DVT prophylaxis to the primary surgery service Past Medical History Past Medical History: Cancer, Rheumatoid Arthritis (RA) Additional Past Medical History / Comment(s): ARTHRITIC LUNG RT SIDE. neuropa thy. ovarian cancer History of Any Multi-Drug Resistant Organisms: None Reported Past Surgical History: Appendectomy, Heart Catheterization, Hernia Repair, Hysterectomy, Joint Replacement, Tonsillectomy Additional Past Surgical History / Comment(s): RT HAND JOINT REPLACED, THORACENTESIS 2008, RT FOOT SURG, BUNIONECTOMY, RIGHT HIP REPLACED, right total reverse shoulder Past Anesthesia/Blood Transfusion Reactions: No Reported Reaction Past Psychological History: Anxiety Smoking Status: Former smoker Past Alcohol Use History: Occasional Additional Past Alcohol Use History / Comment(s): quit smoking 06/20/2021, started smoking as a teen Past Drug Use History: None Reported - Past Family History Father Family Medical History: Myocardial Infarction (SC) Additional Family Medical History / Comment(s): . Mother Family Medical History: Cancer Additional Family Medical History / Comment(s): pancreatic cancer Sister(s) Family Medical History: Cancer Additional Family Medical History / Comment(s): lung cancer. NIECE-BREAST CANCER IN HER 30'S Medications and Allergies Home Medications Medication Instructions Recorded Confirmed Type ALPRAZolam [Xanax] 0.25 mg PO HS 02/04/23 02/04/23 History Zolpidem Tartrate [Ambien] 10 mg PO HS 02/04/23 02/04/23 History Gabapentin [Neurontin] 500 mg PO TID 02/10/23 02/10/23 History Allergies Allergy/AdvReac Type Severity Reaction Status Date / Time adhesive tape Allergy bruise,torn Verified 02/10/23 11:06 skin codeine Allergy Unknown Verified 02/10/23 11:06 diphenhydramine Allergy Unknown Verified 02/10/23 11:06 [From Benadryl] egg Allergy Unknown Verified 02/10/23 11:06 levofloxacin [From Levaquin] Allergy Unknown Verified 02/10/23 11:06 propoxyphene napsylate Allergy Unknown Verified 02/10/23 11:06 [From Darvocet-N 100] bandaid Allergy bruise, Uncoded 02/10/23 11:06 torn skin Physical Exam Vitals: Vital Signs Temp Pulse Resp BP BP Pulse Ox 02/10/23 20:00 97.5 F L 73 16 149/78 98 02/10/23 18:19 97.4 F L 62 18 132/77 94 L 02/10/23 17:42 62 20 136/64 94 L 02/10/23 17:00 60 20 134/62 93 L 02/10/23 16:45 63 20 136/71 94 L 02/10/23 16:30 65 20 126/67 99 02/10/23 16:15 71 20 119/54 95 02/10/23 16:00 97.0 F L 69 20 112/60 94 L 02/10/23 11:59 71 16 120/66 99 02/10/23 11:12 98.5 F 74 16 130/82 99 Intake and Output 02/10/23 02/10/23 02/11/23 14:59 22:59 06:59 Intake Total 1651 400 Output Total 100 Balance 1651 300 Intake: IV 1651 400 Output: Estimated Blood Loss 100 Other: Weight 58.2 kg 58.2 kg
[2023-02-11] MEDS: HYDROmorphone 0.5 MG/0.5 ML SYRINGE IVP PRN (03:27)
[2023-02-11] MEDS: HYDROcodone/APAP 5-325MG 1 EACH TAB PO PRN ×2 (08:00→14:17)
[2023-02-11 13:07] VITALS: BP 92/57; PULSE 62; RESP 12; TEMP 98.3
--- NOTE | 2023-02-11 13:35 | P.DS ---
Providers Expected date of discharge: 02/11/23 Attending physician: Marci Gates DO Consults: 02/10/23 15:32 Consult Physician Routine Consulting Provider: Shruthi Vazquez Consult Reason/Comments: medical management Do you want consulting provider notified?: Yes Primary care physician: Shaun Griffin - Discharge Diagnosis(es) (1) Status post reverse arthroplasty of right shoulder Current Visit: Yes Status: Acute (2) Closed fracture of right proximal humerus Current Visit: No Status: Acute Hospital Course: This is a 72-year-old female who has history of a previous displaced proximal humerus fracture of the right shoulder about 1 year ago and presented to discuss surgical options. After discussion and consideration the patient elects to proceed with right reverse shoulder arthroplasty. The pt is seen preoperatively by their family physician and cleared for surgery. The patient is admitted to [facility] on 02/10/2023 for right reverse shoulder arthroplasty with Dr. Gates. She is doing well postoperatively. Vital signs and hemoglobin are stable. The pt is able to get up out of bed independently and is ambulating without assistance. Pain is well controlled. Patient is discharged to home on postoperative day #1 in good condition. Please see med rec for accurate list of home medications. Patient Condition at Discharge: Stable Plan - Discharge Summary Discharge Rx Participant: No New Discharge Prescriptions: New HYDROcodone/APAP 7.5-325MG [Dudley 7.5-325] 1 - 2 tab PO Q6HR PRN #20 tab PRN Reason: Pain No Action Zolpidem Tartrate [Ambien] 10 mg PO HS ALPRAZolam [Xanax] 0.25 mg PO HS Gabapentin [Neurontin] 500 mg PO TID Discharge Medication List ALPRAZolam [Xanax] 0.25 mg PO HS 02/04/23 [History] Zolpidem Tartrate [Ambien] 10 mg PO HS 02/04/23 [History] Gabapentin [Neurontin] 500 mg PO TID 02/10/23 [History] HYDROcodone/APAP 7.5-325MG [Dudley 7.5-325] 1 - 2 tab PO Q6HR PRN #20 tab 02/11/23 [Rx] Follow up Appointment(s)/Referral(s): Marci Gates DO [Doctor of Osteopathic Medicine] - 1 Week (for Prevena removal in the office. ) Patient Instructions/Handouts: *Surgery [facility] - ([facility]) Shoulder Arthroscopy Post-Op Instructions, Negative Pressure Wound Therapy (DC) Activity/Diet/Wound Care/Special Instructions: Continue with Prevena wound vac on the right shoulder. The wound vac may be removed by family if it starts beeping. Follow up in the office on Friday if you want us to remove the wound vac for you. Continue in arm sling No range of motion of the shoulder at this time May get out of sling for elbow, wrist, and hand range of motion Take over the counter stool softners as needed for constipation due to pain medication. Follow up on 02/24/23 as scheduled with Cheli Chu NP. Call the office, with any questions or concerns. Discharge Disposition: HOME SELF-CARE
--- NOTE | 2023-02-11 18:58 | P.PN ---
Subjective Progress Note Date: 02/11/23 Hospital course: Patient is a very pleasant 72-year-old female with a past medical history of rheumatoid arthritis, fibromyalgia, and ovarian cancer status post hysterectomy. She is currently admitted under orthopedic surgery team secondary to elective right reverse total shoulder arthroplasty. We are following for medical management throughout patient's hospitalization. Physical exam: Patient seen and fully evaluated at bedside this morning. Patient was sitting up on the edge of bed eating breakfast. She currently reports pain is controlled and denies having any needs or concerns at this time. Patient very eager to be discharged home. Vital signs reviewed and stable. General: Nontoxic, no distress and appears stated age. Derm: Skin warm and dry, normal coloration for ethnicity. Head: Atraumatic, normocephalic and symmetric. Eyes: EOMs intact, no lid lag, and anicteric sclera Mouth: no lip lesions, mucus membranes moist Cardiovascular: regular rate and rhythm with normal S1S2, no murmur, positive posterior tibial pulses bilaterally, and cap refill < 2 seconds. Lungs: Respirations even, regular, and unlabored on room air. Lungs CTA bilaterally, no rhonchi, no rales, no wheezing, and no accessory muscle usage. Abdominal: soft, nontender to palpation, no guarding, no appreciable organomegaly Ext: No gross muscle atrophy, no edema, no contractures. Movement and sensation intact. Right arm in sling. Neuro: Speech clear, face symmetrical and CN II-XII grossly intact with no noted focal neuro deficits Psych: Alert and oriented to person, place, time, and situation. Appropriate and pleasant affect. Assessment and Plan of Care: Status post right total shoulder arthroplasty Management per primary admitting orthopedic surgery team including DVT prophylaxis, pain management, weightbearing, and PT/OT. Rheumatoid arthritis Fibromyalgia Patient to continue with daily medication regimen with Neurontin 500 mg 3 times daily and to be provided with CPAP and supportive care with assistance as needed. Data reviewed: Vital signs reviewed and stable blood pressure 100/62, heart rate 76, respiratory rate 16, temperature 98.6F, SpO2 of 93% on room air. Morning labs pending. Thank you for allowing us to participate in the care of this pleasant patient. Do not hesitate to contact us with questions. Someone can be reached from the [facility] hospitalist group all hours of the day at [phone] or via perfect serve. Patient was seen independently by Nurse Pracitioner. This document was prepared using Zalando dictation software. Please allow for errors in flower machine operator, while rare they do occur. Alejandro Bliss COOK CHILI rendered care for this patient independently, reviewed the findings and plan as documented in the note above. I did not physically speak with or examine the patient on this date. Objective - Vital Signs Vital signs: Vital Signs Temp 98.6 F 02/11/23 07:17 Pulse 76 02/11/23 07:17 Resp 16 02/11/23 07:17 BP 100/62 02/11/23 07:17 Pulse Ox 93 L 02/11/23 07:17 FiO2 Intake & Output 02/10/23 02/11/23 02/11/23 18:59 06:59 18:59 Intake Total 2050 Output Total 100 Balance 1950 Weight 58.2 kg Intake: IV 2050 Output: Estimated Blood Loss 100 Other: # Voids 2
--- NOTE | 2023-02-14 16:56 | P.OP ---
Date of Procedure: 02/10/23 Preoperative Diagnosis: Right shoulder proximal humerus nonunion Postoperative Diagnosis: same Procedure(s) Performed: Right reverse total shoulder arthroplasty Implants: Arthrex Revers Base plate - 24mm 10 deg full augment, with 25mm post Glenosphere - 33/24, neutral Humeral- size 5 stem, 135 neck, suture cup, 33mm +3 poly Anesthesia: devon ALFARO Surgeon: Marci Gates Director Of Outside Sales #1: Cheli Chu Estimated Blood Loss (ml): 100 Pathology: none sent Condition: stable Disposition: PACU Indications for Procedure: Jennifer fell on 04/12/22 sustaining a 4 part proximal humerus fracture that was in acceptable alignment. We attempting nonop management but she went on to nonunion. We discussed treatment options and she would like to proceed with reverse total shoulder arthroplasty. Operative Findings: nonunion of the right proximal humerus Description of Procedure: The patient, operative extremity, and procedure were identified in the preop holding area. After informed consent was obtained, she received a regional block and was brought back to the OR where she was placed under general and placed in the beach chair position. All bony and neurovascular structures were well padded. The upper extremity was then prepped and draped in normal sterile fashion. An oblique incision was then made from the corocoid towards the attachment of the deltoid. Dissection was carried down to the delto pec interval and the cephalic vein was identified and mobilized laterally. About 5mm of the pectoralis insertion was released. A silver elevator was swept under the acormion to clear the subdeltoid space. The conjoined tendon was identified and the clavipectoral fascia was released to allow for placement of the ramón retractor. The biceps tendon was located in the groove and released. A tenodesis was performed distal to the bicipital groove with an 0 vicyrl. A saw was then utilized to perform and osteotomy of the greater and lesser tuberosities to free them from the surrounding callous. There was gross movement of the lesser tuberosity. The subscapularis was carefully freed and the tendon and lesser tuberosity was tucked medially. A ronguer was utilized to remove the remaining collapsed head in a piecemeal fashion. The greater tuberosity was freed from it's shortened position on the humeral shaft. Both tuberosities were tagged with #3 fiberwire. Attention was then turned to the glenoid. The biceps tendon was followed to the labrum which was removed using bovey cautery. The axillary nerve was palpated and protected. The edges of the glenoid were exposed. The aiming guide was used to insert the guide pin at the center of the glenoid. The appropriate reamers were utilized to create the bleediing bone base for the glenoid. The central hold was drilled and the base plate was inserted with the post. A nonlocking screw was inserted inferiorly and locking screws were placed in the superior and posterior positions. A +3 glenosphere was then impacted and fixed. Attention was then turned to the humerus. The opening reamers were utilized followed by serial broaches with about 20 degrees of retroversion. A size 5 was found to be a good fit with rotational and axial stability. The cup and neutral poly trial was assembled. The lateral edge was about 5.6cm from the deltoid insertion but reduction was unsuccessful. It seems as though the prolonged time in a shortened position had contracted the capsule. The decision was made to revise the glenosphere to a neutral sphere. The humeral trial was removed and the previous glenosphere was removed and the neutral one impacted and fixed. The trial humeral components were again assembled and reduction showed good tension and stability with approprate range of motion. The trials were removed and the final implants were inserted. A larkshead knot was set to bring the two tuberosities together. A fibertape suture was threaded through the suture cup for an around the world construct. Final reduction of the joint again showed good stability and tension with appropriate range of motion. The construct was copiously irrigated with pulse lavage. The tuberosities were reduced and fixed with an around the world construct with fibertape and fiberwire sutures. The wound was closed in a layered fashion with 0 vicryl, 3.0 vicryl, 4.0 monocryl, and skin glue. Wound was dressed with a provena dressing.
== END 2023-02-11 15:04 | disposition home or self-care (01) ==
LOC: OR 10:49 → 4SSUR 15:44 → OR 02-11 15:04
PROVIDERS: ATTEND Orthopaedic Surgery Hand Surgery
DX: M19.011 Primary osteoarthritis, right shoulder (principal); M06.9 Rheumatoid arthritis, unspecified; M79.7 Fibromyalgia; F41.9 Anxiety disorder, unspecified; F10.90 Alcohol use, unspecified, uncomplicated; Z79.899 Other long term (current) drug therapy; Z87.891 Personal history of nicotine dependence; Z88.1 Allergy status to other antibiotic agents; Z88.8 Allergy status to other drugs, medicaments and biological substances; Z85.43 Personal history of malignant neoplasm of ovary; Z96.611 Presence of right artificial shoulder joint; Z91.012 Allergy to eggs; Z88.5 Allergy status to narcotic agent
CPT/HCPCS: 64415; 73020; 23472; C1713; C1776; J2250; J1100; J2710; J0690 ×2; J2405; J3010 ×2; J2795; J2704; J1170 ×2; J2371; J0665

== ENCOUNTER → 2024-01-23 | Outpatient (CLI) | payer MEDICARE, BC ==
--- NOTE | 2024-01-23 13:43 | CTL ---
EXAMINATION TYPE: CT Low Dose Lung DATE OF EXAM ORDERED: 01/23/2024 HISTORY: 73-year-old female Z12.2 Screening F17.210 NICOTINE DEPENDENCE, CIGAR. Lung cancer screening . History of ovarian cancer, pain under the right rib cage. CT DLP: [address] CTDI: 1.53 mGy Automated exposure control for dose reduction was used. SCREENING VISIT: Annual follow-up COMPARISON: 12/11/2022 TECHNIQUE: Low dose computed tomography scan was performed through the chest at 1 mm thick sections a nd reconstructed images in multiple planes at 1 mm and [address] DIAGNOSTIC QUALITY: Satisfactory FINDINGS: The heart is upper limits of normal in size without pericardial effusion. Mild proximal LAD coronary calcifications are present. Ectatic ascending aorta 3.7 cm. Mild atherosclerotic arch calcifications with conventional arch vesse l branching anatomy. Ectatic lower descending thoracic aorta 2.8 cm. Calcified lymph node prevascular space suggesting sequela of prior granulomatous disease. Chronic pleural parenchymal scarring with strandy density and smooth pleural thickening at the tong setter ior right mid to lower lung. Mild diffuse bronchial wall thickening. Mild to moderate emphysematous c hange. Mild patchy density at the periphery of the left base has developed in the interval. Somewhat irregul ar appearance measuring up to 1.3 cm. Reassess at follow-up. Axial images 270. A few additional 6 mm and smaller pulmonary nodules remain unchanged. No consolidation or pleural effusion. Visualized upper abdomen shows an oval area of fluid density along the anterior margin of the right l iver lobe, axial image 71. Unclear if this represents a redundant fundus of the gallbladder versus ne w pericapsular fluid. Further contrast enhanced CT of the abdomen and pelvis recommended especially g iven the patient's history of ovarian cancer and pain near this location. Bones: Mild to moderate degenerative disc disease L2-L3. No osseous destructive process. IMPRESSION: 1. Lung RADS 4a, suspicious. Patchy density in the periphery of the left base has a somewhat irregula r appearance measuring up to 1.3 cm. Three-month follow-up CT chest to exclude a developing pulmonary nodule. Correlate for any infectious signs/symptoms to exclude a small infiltrate. 2. Otherwise, there is COPD with mild to moderate emphysema and stable 6 mm and smaller pulmonary nod ules as well as chronic pleural-parenchymal scarring at the right base. 3. A new oval area of fluid measuring at least 5.7 x 1.7 cm along the anterior right liver margin. Po ssible partially visualized folded fundus of the gallbladder. A new perihepatic fluid collection not excluded. Recommend contrast-enhanced CT abdomen and pelvis evaluation given patient's history of ova gerard cancer and pain below the right ribs. CT LUNG RAD AND CT CHEST RECOMMENDATION: Lung-Rad 4A Suspicious: Follow-up 3 month LDCT or PET/CT may be used when there is a > 8 mm solid component. S Modifier (other clinically significant findings): S, see Impression #3 above. [facility], Workstation: [employer], 01/23/2024 1:41 PM
--- NOTE | 2024-01-27 08:51 | MM ---
Reason for Exam: Screening (asymptomatic). Last mammogram was performed 1 year(s) and 1 month(s) ago. Patient History: Menarche at age 16. First Full-Term at age 19. Left ovary removed at age 70. Right ovary removed at age 70. Hysterectomy at age 44. Postmenopausal. Ovarian cancer, age 70. Previous chemotherapy at age 70. Currently using Estrogen, beginning at age 51 for 5 years, 9 months. 10/06/2015, US discontinued breast bx RT on the right side. Maternal grandmother had breast cancer, age 65. Niece had breast cancer, age 30. Sister had breast cancer, age 40. Sister had breast cancer, age 65. Risk Values: Tessie 5 year model risk: 6.5%. NCI Lifetime model risk: 14.4%. Prior Study Comparison: 01/17/2020 Bilateral Diagnostic Mammogram, [facility]. 10/24/2021 Bilateral MG 3D screening mammo w/cad, [facility]. 12/30/2022 Bilateral MG 3D screening mammo w/cad, [facility]. Tissue Density: The breasts are heterogeneously dense, which may obscure small masses. Findings: Analyzed By CAD. There is no suspicious group of microcalcifications or new suspicious mass in either breast. Appearing calcifications. Overall Assessment: Benign, BI-RAD 2 Management: Screening Mammogram of both breasts in 1 year. . Patient should continue monthly self-breast exams. A clinical breast exam by your physician is recommended on an annual basis. This exam should not preclude additional follow-up of suspicious palpable abnormalities. Note on Tessie scores and lifetime risk: 1. A Tessie score greater than 3% is considered moderate risk. If this is the case, consider specialist referral to assess eligibility for a risk reducing agent. 2. If overall lifetime risk for the development of breast cancer is 20% or higher, the patient may qualify for future screening with alternating mammogram and breast MRI. [facility], , 01/27/2024 8:47 AM. Electronically signed and approved by: Jayesh Hurst M.D. Radiologis
== END | disposition home or self-care (01) ==
LOC: RADCTMAIN 12:56
PROVIDERS: ATTEND Family Medicine
DX: Z12.31 Encounter for screening mammogram for malignant neoplasm of breast (principal); Z12.2 Encounter for screening for malignant neoplasm of respiratory organs; F17.210 Nicotine dependence, cigarettes, uncomplicated; J43.9 Emphysema, unspecified; J44.9 Chronic obstructive pulmonary disease, unspecified; J98.4 Other disorders of lung; R91.8 Other nonspecific abnormal finding of lung field; Z78.0 Asymptomatic menopausal state; Z80.3 Family history of malignant neoplasm of breast
CPT/HCPCS: 71271; 77063; 77067

== ENCOUNTER → 2024-02-02 | Outpatient (CLI) | payer MEDICARE, BC ==
[2024-02-02 11:10] LABS: African American GFR (CKD) 57 (>60 ml/min/1.73 sqM); Blood Urea Nitrogen 23 mg/dL (7-17); Non-African American GFR(CKD) 49 (>60 ml/min/1.73 sqM)
--- NOTE | 2024-02-02 12:39 | CT ---
EXAMINATION TYPE: CT abdomen pelvis w con CT DLP: 352.9 mGycm, Automated exposure control for dose reduction was used. DATE OF EXAM: 02/02/2024 12:15 PM COMPARISON: CT chest abdomen pelvis 09/07/2021 CLINICAL INDICATION:Female, 73 years old with history of R10.11 RUQ pain; ruq pain TECHNIQUE: Standard CT of the abdomen and pelvis following the administration of 100 cc of Isovue 3 00 IV contrast material and oral contrast. Coronal and sagittal reformats were performed. FINDINGS: LOWER CHEST: Scattered pulmonary cysts with bilateral lower lobe linear scarring and/or atelectasis. ABDOMEN LIVER: Unremarkable GALLBLADDER AND BILE DUCTS: No biliary ductal dilatation. Contracted gallbladder. PANCREAS: Unremarkable. SPLEEN: Unremarkable. ADRENAL GLANDS: Unremarkable. KIDNEYS AND URETERS: No evidence of hydronephrosis or renal calculus. The kidneys enhance symmetrical ly. 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 PELVIS BLADDER: Unremarkable REPRODUCTIVE: The uterus is surgically absent. The ovaries appear surgically absent. ABDOMEN & PELVIS STOMACH AND BOWEL: Stomach and duodenum are unremarkable. No focal bowel wall thickening or surroundi ng inflammatory changes. Moderate colonic stool burden. Redundant sigmoid colon. Enteric contrast cyndie ches the transverse colon. The appendix appears surgically absent. No evidence of bowel obstruction. PERITONEUM: No evidence of pneumoperitoneum or free fluid. VASCULATURE: No evidence of aortic aneurysm. MUSCULOSKELETAL: No acute osseous abnormalities. Postsurgical changes from right total hip arthroplas ty. Mild multilevel degenerative disc disease which is most pronounced at L2-L3. LYMPH NODES: No gross evidence for lymphadenopathy. SOFT TISSUE/ABDOMINAL WALL: Unremarkable IMPRESSION: 1. No CT evidence for an acute abdominal/pelvic process. No evidence recurrence or metastasis. 2. Moderate colonic stool burden. [facility], , 02/02/2024 12:37 PM
== END | disposition home or self-care (01) ==
LOC: RADCTMAIN 10:21
PROVIDERS: ATTEND Family Medicine
DX: Z85.43 Personal history of malignant neoplasm of ovary
CPT/HCPCS: 36415; 74177; 82565; 84520

== ENCOUNTER 2024-04-09 12:06 | Day surgery (SDC) | payer MEDICARE, BC ==
[2024-04-06 14:49] VITALS: BMI 19.1
[2024-04-09] MEDS: IV FLUID CONTINUATION 1,000 ML IV ONE (13:33)
[2024-04-09 13:41] VITALS: RESP 16; TEMP 98.9
[2024-04-09] MEDS: LACTATED RINGERS 1,000 ML IV SCH (13:50)
[2024-04-09] MEDS ORDERED: PROPOFOL 10 MG/ML 20 ML VIAL IV ONE (14:22)
--- NOTE | 2024-04-09 14:43 | P.PCN ---
Date of Procedure: 04/09/24 Procedure(s) Performed: BRIEF HISTORY: Patient is a 73-year-old pleasant white female scheduled for an elective colonoscopy as a part of screening for colon cancer. PROCEDURE PERFORMED: Colonoscopy. PREOPERATIVE DIAGNOSIS: Screening for colon cancer. IV sedation per Anesthesia. PROCEDURE: After informed consent was obtained, the patient, was brought into the endoscopy unit. IV sedation was administered by Anesthesia under continuous monitoring. Digital rectal examination was normal. Initially the Olympus CF-160 flexible video colonoscope was then inserted in the rectum, gradually advanced into the cecum without any difficulty. Careful examination was performed as the scope was gradually being withdrawn. Ileocecal valve and the appendiceal orifice were visualized and appeared normal. Prep was excellent. Mucosa of the cecum, ascending colon, transverse colon, descending colon, sigmoid colon, and rectum appeared normal. Retroflexion was performed in the rectum and no lesions were seen. Sigmoid diverticulosis. The patient tolerated the procedure well. IMPRESSION: Normal-appearing colon from rectum to cecum no evidence of colorectal neoplasia. Scattered sigmoid diverticulosis. RECOMMENDATIONS: Findings of this examination were discussed with the patient as well as her family. She was advised to have repeat screening colonoscopy in 10 years.
[2024-04-09 15:05] VITALS: BP 107/58; PULSE 73
== END 2024-04-09 15:27 | disposition home or self-care (01) ==
LOC: ORWHC2ENDO 12:06
PROVIDERS: ATTEND Internal Medicine Gastroenterology
DX: Z12.11 Encounter for screening for malignant neoplasm of colon (principal); K57.30 Diverticulosis of large intestine without perforation or abscess without bleeding; C56.9 Malignant neoplasm of unspecified ovary; M19.041 Primary osteoarthritis, right hand; L23.1 Allergic contact dermatitis due to adhesives; Z88.5 Allergy status to narcotic agent; Z90.89 Acquired absence of other organs; Z88.1 Allergy status to other antibiotic agents; Z91.012 Allergy to eggs; Z79.899 Other long term (current) drug therapy

== ENCOUNTER 2024-09-17 16:20 | Emergency (ER) | payer MEDICARE, BC ==
[2024-09-17 16:33] VITALS: TEMP 98.4
[2024-09-17 16:56] LABS: Basophils # (A) 0.02 10*3/uL (0.00-0.10); Basophils % (A) 0.3 %; Eosinophils # (A) 0.26 10*3/uL (0.04-0.35); Eosinophils % (A) 4.2 %; HCT 37.1 % (37.2-46.3); HGB 12.6 g/dL (12.0-15.0); Lymphocytes % (A) 43.4 %; MCH 33.3 pg (27.0-32.0); MCV 98.1 fL (80.0-97.0); Mean Platelet Volume 9.6 fL (9.5-12.2); Monocytes # (A) 0.53 10*3/uL (0.20-1.00); Monocytes % (A) 8.5 %; Neutrophils % (A) 43.4 %; Platelet Count 191 10*3/uL (140-440); RBC 3.78 10*6/uL (4.10-5.20); RDW 13.1 % (11.5-14.5); WBC 6.22 10*3/uL (4.50-10.00)
[2024-09-17 17:07] LABS: ALT 11 U/L (4-34); AST 26 U/L (14-36); African American GFR (CKD) 60 (>60 ml/min/1.73 sqM); Alkaline Phosphatase 69 U/L (38-126); Anion Gap 9 mmol/L; Blood Urea Nitrogen 21 mg/dL (7-17); Calcium 9.4 mg/dL (8.4-10.2); Carbon Dioxide 21 mmol/L (22-30); Chloride 104 mmol/L (98-107); Glucose 97 mg/dL (74-99); Lipase 110 U/L (23-300); Magnesium 1.8 mg/dL (1.6-2.3); Non-African American GFR(CKD) 52 (>60 ml/min/1.73 sqM); Potassium 3.9 mmol/L (3.5-5.1); Sodium 134 mmol/L (137-145); Total Bilirubin 0.5 mg/dL (0.2-1.3); Total Protein 6.5 g/dL (6.3-8.2)
[2024-09-17 17:15] LABS: NT-Pro-B-Type Natriuretic Pept 194 pg/mL
[2024-09-17 17:18] LABS: INR 0.9 (<1.2); Partial Thromboplastin Time 22.2 sec (22.0-30.0); Prothrombin Time 10.5 sec (10.0-12.5)
--- NOTE | 2024-09-17 17:31 | ED ---
General Adult HPI - General Chief complaint: Chest Pain Stated complaint: back pain, cp Time Seen by Provider: 09/17/24 17:10 Source: patient, RN notes reviewed Mode of arrival: ambulatory Limitations: no limitations - History of Present Illness Initial comments: Patient is a 73-year-old female presenting to the emergency department with a chief complaint of right thoracic back pain. Onset of symptoms was a couple days ago. Patient questions if she picked something up that caused her symptoms. Patient states it does radiate through to the right side of the chest. Discomfort feels somewhat sharp, somewhat pressure. Patient denies dyspnea. No history of similar symptoms previously. - Related Data Home Medications Medication Instructions Recorded Confirmed ALPRAZolam [Xanax] 0.25 mg PO HS 02/04/23 04/09/24 Zolpidem Tartrate [Ambien] 10 mg PO HS 02/04/23 04/09/24 Gabapentin [Neurontin] 500 mg PO TID 02/10/23 04/09/24 Adalimumab [Humira(Cf) Pen] 40 mg SQ DIRECTED 04/06/24 04/09/24 Niraparib Tosylate [Zejula] 100 mg PO HS 04/06/24 04/09/24 Previous Rx's Medication Instructions Recorded Cyclobenzaprine [Flexeril] 10 mg PO TID PRN #12 tablet 09/17/24 Famotidine [Pepcid] 20 mg PO BID #30 tablet 09/17/24 Allergies Allergy/AdvReac Type Severity Reaction Status Date / Time adhesive tape Allergy bruise,torn Verified 09/17/24 16:34 skin codeine Allergy Unknown Verified 09/17/24 16:34 diphenhydramine Allergy Unknown Verified 09/17/24 16:34 [From Benadryl] egg Allergy Unknown Verified 09/17/24 16:34 levofloxacin [From Levaquin] Allergy Unknown Verified 09/17/24 16:34 propoxyphene napsylate Allergy Unknown Verified 09/17/24 16:34 [From Darvocet-N 100] bandaid Allergy bruise, Uncoded 09/17/24 16:34 torn skin Review of Systems ROS Statement: Those systems with pertinent positive or pertinent negative responses have been documented in the HPI. ROS Other: All systems not noted in ROS Statement are negative. Constitutional: Denies: fever Eyes: Denies: eye pain ENT: Denies: ear pain Respiratory: Denies: cough, dyspnea Cardiovascular: Reports: as per HPI Gastrointestinal: Denies: abdominal pain Musculoskeletal: Reports: as per HPI Skin: Denies: rash Neurological: Denies: weakness Past Medical History Past Medical History: Cancer, Rheumatoid Arthritis (RA) Additional Past Medical History / Comment(s): ARTHRITIC LUNG RT SIDE. neuropathy. ovarian cancer History of Any Multi-Drug Resistant Organisms: None Reported Past Surgical History: Appendectomy, Heart Catheterization, Hernia Repair, Hysterectomy, Joint Replacement, Orthopedic Surgery, Tonsillectomy Additional Past Surgical History / Comment(s): RT HAND JOINT REPLACED, THORACEN TESIS 2009, RT FOOT SURG, BUNIONECTOMY, RIGHT HIP REPLACED, right total reverse shoulder Past Anesthesia/Blood Transfusion Reactions: No Reported Reaction Additional Past Anesthesia/Blood Transfusion Reaction / Comment(s): no blood transfusion reaction had platelet transfusion no reaction Past Psychological History: Anxiety Smoking Status: Former smoker - Past Family History Father Family Medical History: Myocardial Infarction ([place]) Additional Family Medical History / Comment(s): . Mother Family Medical History: Cancer Additional Family Medical History / Comment(s): pancreatic cancer Sister(s) Family Medical History: Cancer Additional Family Medical History / Comment(s): lung cancer. NIECE-BREAST CANCER IN HER 30'S General Exam Limitations: no limitations General appearance: alert, in no apparent distress Head exam: Present: normocephalic Eye exam: Present: normal appearance Neck exam: Present: normal inspection Respiratory exam: Present: normal lung sounds bilaterally. Absent: chest wall tenderness Cardiovascular Exam: Present: regular rate, normal rhythm, normal heart sounds Expanded Peripheral pulses: 2+: Radial (R), Radial (L), Posterior Tibialis (R), Posterior Tibialis (L) GI/Abdominal exam: Present: soft. Absent: tenderness, pulsatile mass Extremities exam: Present: normal inspection. Absent: pedal edema, calf tenderness Back exam: Present: normal inspection. Absent: tenderness Neurological exam: Present: alert Psychiatric exam: Present: normal affect, normal mood Skin exam: Present: normal color Course Vital Signs 09/17/24 09/17/24 16:30 19:20 Temperature 98.4 F Pulse Rate 64 61 Respiratory 17 16 Rate Blood Pressure 114/72 121/74 O2 Sat by Pulse 95 99 Oximetry EKG Findings - EKG Results: EKG: interpreted by ERMD (Inferior borderline downward DC segment. Nonspecific ST-T), sinus rhythm, normal axis Medical Decision Making - Medical Decision Making Repeat EKG interpreted by myself shows sinus bradycardia rate 53. DC 189. QRS 77. QT 376. QTc 358. Normal axis. Normal QRS. Nonspecific inferior ST-T. Was pt. sent in by a medical professional or institution (, PA, AGENCY SALES MANAGEMENT ASSISTANT, urgent care, hospital, or care home...) When possible be specific @ -No Did you speak to anyone other than the patient for history (EMS, parent, family, police, friend...)? What history was obtained from this source @ -No Did you review nursing and triage notes (agree or disagree)? Why? @ -I reviewed and agree with nursing and triage notes Were old charts reviewed (outside hosp., previous admission, EMS record, old EKG, old radiological studies, urgent care reports/EKG's, care home records)? Report findings @ -No old charts were reviewed Differential Diagnosis (chest pain, altered mental status, abdominal pain women, abdominal pain men, vaginal bleeding, weakness, fever, dyspnea, syncope, headache, dizziness, GI bleed, back pain, seizure, CVA, palpatations, mental health, musculoskeletal)? @ -Differential Chest Pain: Stable Angina, Unstable Angina, STEMI, NSTEMI Aortic Dissection, Pneumothorax, M usculoskeletal, Esophageal Spasm GERD, Cholecystitis, Pancreatitis, Zoster, this is not meant to be an all-inclusive list. EKG interpreted by me (3pts min.). @ -As above X-rays interpreted by me (1pt min.). @ -Chest x-ray does not reveal acute abnormality CT interpreted by me (1pt min.). @ -CT of the chest shows esophageal thickness U/S interpreted by me (1pt. min.). @ -None done What testing was considered but not performed or refused? (CT, X-rays, U/S, labs)? Why? @ -None What meds were considered but not given or refused? Why? @ -None Did you discuss the management of the patient with other professionals (professionals i.e. , PA, AGENCY SALES MANAGEMENT ASSISTANT, lab, RT, psych nurse, child welfare social worker, clinical research nurse, teacher, aoc airspace control officer, family independence case manager)? Give summary @ -No Was smoking cessation discussed for >3mins.? @ -No Was critical care preformed (if so, how long)? @ -No Were there social determinants of health that impacted care today? How? (Homelessness, low income, unemployed, alcoholism, drug addiction, transportation, low edu. Level, literacy, decrease access to med. care, detention, rehab)? @ -No Was there de-escalation of care discussed even if they declined (Discuss DNR or withdrawal of care, Hospice)? DNR status @ -Recommend admission however patient refuses. Patient states she has to be a t home secondary to having dementia and she is the only one able to take care of him What co-morbidities impacted this encounter? (DM, HTN, Smoking, COPD, CAD, Cancer, CVA, ARF, Chemo, Hep., AIDS, mental health diagnosis, sleep apnea, morbid obesity)? @ -Rheumatoid arthritis Was patient admitted / discharged? Hospital course, mention meds given and route, prescriptions, significant lab abnormalities, going to OR and other pertinent info. @ -Patient presents with right sided back pain radiating to the chest. Troponin negative. Borderline EKG changes. CT scan concerning for esophageal wall thickening. Patient is recommended admission for further evaluation. Including repeat cardiac testing, cardiac consult. Patient is made aware of EKG changes and concerns regarding this. Patient is specifically made aware that heart disease has not been ruled out at this time. Patient is also made aware that she will need a scope done in the near future. Despite this patient refuses. Patient does demonstrate medical decision making. Patient will leave AGAINST MEDICAL ADVICE. Undiagnosed new problem with uncertain prognosis? @ -No Drug Therapy requiring intensive monitoring for toxicity (Heparin, Nitro, Insulin, Cardizem)? @ -No Were any procedures done? @ -No Diagnosis/symptom? @ -Back pain, chest pain, esophageal wall thickening Acute, or Chronic, or Acute on Chronic? @ -Acute, acute, acute Uncomplicated (without systemic symptoms) or Complicated (systemic symptoms)? @ -Default Side effects of treatment? @ -No Exacerbation, Progression, or Severe Exacerbation? @ -No Poses a threat to life or bodily function? How? (Chest pain, [place], [place], pneumonia, PE, COPD, DKA, ARF, appy, cholecystitis, CVA, Diverticulitis, Homicidal, Suicidal, threat to staff... and all critical care pts) @ -No - Lab Data Result diagrams: 09/17/24 16:45 09/17/24 16:45 Lab Results 09/17/24 09/17/24 09/17/24 Range/Units 16:45 16:45 16:45 WBC 6.22 (4.50-10.00) 10*3/uL RBC 3.78 L (4.10-5.20) 10*6/uL Hgb 12.6 (12.0-15.0) g/dL Hct 37.1 L (37.2-46.3) % MCV 98.1 H (80.0-97.0) fL MCH 33.3 H (27.0-32.0) pg MCHC 34.0 (32.0-37.0) g/dL Plt Count 191 (140-440) 10*3/uL MPV 9.6 (9.5-12.2) fL Immature Gran % (Auto) 0.2 % Neutrophils % 43.4 % Lymphocytes % 43.4 % Monocytes % 8.5 % Eosinophils % 4.2 % Basophils % 0.3 % Immature Gran # 0.01 (0.00-0.04) 10*3/uL Neutrophils # 2.70 (1.80-7.70) 10*3/uL Lymphocytes # 2.70 (0.90-5.00) 10*3/uL Monocytes # 0.53 (0.20-1.00) 10*3/uL Eosinophils # 0.26 (0.04-0.35) 10*3/uL Basophils # 0.02 (0.00-0.10) 10*3/uL PT 10.5 (10.0-12.5) sec INR 0.9 (<1.2) APTT 22.2 (22.0-30.0) sec D-Dimer 0.95 H (<0.60) mg/L FEU Sodium 134 L (137-145) mmol/L Potassium 3.9 (3.5-5.1) mmol/L Chloride 104 (98-107) mmol/L Carbon Dioxide 21 L (22-30) mmol/L Anion Gap 9 mmol/L BUN 21 H (7-17) mg/dL Creatinine 1.06 H (0.52-1.04) mg/dL Est GFR (CKD-EPI)AfAm 60 (>60 ml/min/1.73 sqM) Est GFR (CKD-EPI)NonAf 52 (>60 ml/min/1.73 sqM) Glucose 97 (74-99) mg/dL Calcium 9.4 (8.4-10.2) mg/dL Magnesium 1.8 (1.6-2.3) mg/dL Total Bilirubin 0.5 (0.2-1.3) mg/dL AST 26 (14-36) U/L ALT 11 (4-34) U/L Alkaline Phosphatase 69 (38-126) U/L Troponin I (0.000-0.034) ng/mL NT-Pro-B Natriuret Pep 194 pg/mL Total Protein 6.5 (6.3-8.2) g/dL Albumin 4.0 (3.5-5.0) g/dL Lipase 110 (23-300) U/L 05/16 Range/Units 16:45 WBC (4.50-10.00) 10*3/uL RBC (4.10-5.20) 10*6/uL Hgb (12.0-15.0) g/dL Hct (37.2-46.3) % MCV (80.0-97.0) fL MCH (27.0-32.0) pg MCHC (32.0-37.0) g/dL Plt Count (140-440) 10*3/uL MPV (9.5-12.2) fL Immature Gran % (Auto) % Neutrophils % % Lymphocytes % % Monocytes % % Eosinophils % % Basophils % % Immature Gran # (0.00-0.04) 10*3/uL Neutrophils # (1.80-7.70) 10*3/uL Lymphocytes # (0.90-5.00) 10*3/uL Monocytes # (0.20-1.00) 10*3/uL Eosinophils # (0.04-0.35) 10*3/uL Basophils # (0.00-0.10) 10*3/uL PT (10.0-12.5) sec INR (<1.2) APTT (22.0-30.0) sec D-Dimer (<0.60) mg/L FEU Sodium (137-145) mmol/L Potassium (3.5-5.1) mmol/L Chloride (98-107) mmol/L Carbon Dioxide (22-30) mmol/L Anion Gap mmol/L BUN (7-17) mg/dL Creatinine (0.52-1.04) mg/dL Est GFR (CKD-EPI)AfAm (>60 ml/min/1.73 sqM) Est GFR (CKD-EPI)NonAf (>60 ml/min/1.73 sqM) Glucose (74-99) mg/dL Calcium (8.4-10.2) mg/dL Magnesium (1.6-2.3) mg/dL Total Bilirubin (0.2-1.3) mg/dL AST (14-36) U/L ALT (4-34) U/L Alkaline Phosphatase (38-126) U/L Troponin I 0.013 (0.000-0.034) ng/mL NT-Pro-B Natriuret Pep pg/mL Total Protein (6.3-8.2) g/dL Albumin (3.5-5.0) g/dL Lipase (23-300) U/L Disposition Clinical Impression: Chest pain Disposition: LEFT AGAINST MEDICAL ADVICE Instructions (If sedation given, give patient instructions): Chest Pain (ED) Additional Instructions: Please do follow-up with your primary care physician Friday. Have primary care physician review her chart today. Have primary care physician consider further cardiac testing. Also consider EGD scope done to further assess esophageal abnormalities. Return for increased pain, chest pain, difficulty breathing, worsening symptoms or any other concerns. Pepcid daily until EGD results Prescriptions: Cyclobenzaprine [Flexeril] 10 mg PO TID PRN #12 tablet PRN Reason: Pain Famotidine [Pepcid] 20 mg PO BID #30 tablet Is patient prescribed a controlled substance at d/c from ED?: No Referrals: Shaun Griffin DO [Primary Care Provider] - 1-2 days Time of Disposition: 19:31
--- NOTE | 2024-09-17 17:37 | XR ---
EXAMINATION TYPE: XR chest 2V DATE OF EXAM: 09/17/2024 5:35 PM COMPARISON: Prior chest radiograph, most recently dated 04/12/2022. CLINICAL INDICATION: Female, 73 years old with history of cp; H TECHNIQUE: XR chest 2V Frontal and lateral views of the chest. FINDINGS: Lungs/Pleura: There is no evidence of pleural effusion, focal consolidation, or pneumothorax. Pulmonary vascularity: Unremarkable. Heart/mediastinum: Cardiomediastinal silhouette is unremarkable. Musculoskeletal: No acute osseous pathology. Right shoulder arthroplasty. Other findings: None IMPRESSION: No acute cardiopulmonary disease/process. [facility], , 09/17/2024 5:35 PM
[2024-09-17] MEDS: NITROGLYCERIN SL TABS 0.4 MG TAB SUBLINGUAL STA (17:56)
[2024-09-17] MEDS: ASPIRIN 81 MG PO STA (17:56)
--- NOTE | 2024-09-17 18:42 | CT ---
EXAMINATION TYPE: CT angio chest DATE OF EXAM: 09/17/2024 6:25 PM COMPARISON: Previous CT study 06/24/2024. CLINICAL INDICATION: Female, 73 years old with history of cp ; Pt is coming in for back pain that radiates to the front of her chest x a few days. Pt states that it is causing her some SOB. TECHNIQUE/CONTRAST: CTA scan of the thorax is performed with IV Contrast, patient injected with 80ml mL of Isovue 370, CT P images are created and reviewed these are created on a separate workstation.. CT DLP: 544.6 mGycm, Automated exposure control for dose reduction was used. FINDINGS: Pulmonary Artery: There is no evidence for a filling defect within the pulmonary vasculature to sugge st acute pulmonary embolism. The pulmonary artery is of normal size. . Noncontrast portion the study demonstrates no evidence of intramural hematoma. Lungs/Pleura: No evidence of focal consolidation, pleural effusion or pneumothorax. Scarring/atelecta sis in the lower lobes. Findings suggestive of emphysema. Airway: Large airways are patent. Heart: Heart is within normal limits for size. Vasculature: No evidence of aortic aneurysm. Mediastinum: No gross evidence of adenopathy. Significant circumferential wall thickening of the visu alized thoracic esophagus. Musculoskeletal: No acute osseous abnormalities. Right shoulder arthroplasty. Soft Tissues/lymph nodes: Unremarkable. Lower neck: No significant findings. Upper Abdomen: No significant acute findings. IMPRESSION: 1. No evidence of acute pulmonary embolism or acute pulmonary pathology. 2. Abnormal masslike circumferential wall thickening of the visualized thoracic esophagus, which is indeterminate but could reflect esophagitis. Recommend outpatient EGD/direct visualization for furthe r evaluation. [facility], , 09/17/2024 6:40 PM
[2024-09-17 19:25] VITALS: BP 121/74; PULSE 61; RESP 16
[2024-09-17] MEDS: KETOROLAC 15 MG/ML 1 ML VIAL IVP STA (19:38)
== END 2024-09-17 19:44 | disposition left against medical advice (07) ==
LOC: EC 16:20
DX: K22.9 Disease of esophagus, unspecified (principal); M54.6 Pain in thoracic spine; M06.9 Rheumatoid arthritis, unspecified; Z53.29 Procedure and treatment not carried out because of patient's decision for other reasons; Z88.1 Allergy status to other antibiotic agents; Z88.8 Allergy status to other drugs, medicaments and biological substances; Z88.5 Allergy status to narcotic agent; Z91.09 Other allergy status, other than to drugs and biological substances; Z87.891 Personal history of nicotine dependence
CPT/HCPCS: 36415; 93005; 85379; 83880; 80053; 83690; 83735; 84484; 85025; 85610; 85730; 71046; 71275; 99285; 96374; J1885; Q9967